=== PATIENT | male | born 1945 | race Caucasian/White ===

== ENCOUNTER 2024-07-25 06:46 | Emergency (ER) | payer OTHER ==
[~2024-07-25] VITALS: Ht 167.6 cm; Wt 45.5 kg
--- NOTE | 2024-07-25 07:06 | ED.PDOC ---
Musculoskeletal HPI Comments 79 year old male TIFFANY presents to the ED with chief complaint of left knee and hip pain s/p fall. Patient reports that this morning around 12am, he had gotten out of bed, but his right foot slipped and he fell onto his left side. Patient relays that he now has left sided knee and hip pain. EMS states patient had a previous fall involving his left side and according to , he needed to follow up with [facility] for further evaluation, but never got around to it. Patient notes he has been falling more often recently. Patient denies any LOC, head injury, N/V, numbness/tingling/weakness of extremities, or dizziness. 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, Medications, Allergies Allergies: Coded Allergies: NO KNOWN ALLERGIES (Unverified , 07/25/24) Information Source: Patient, Emergency Med Personnel Mode of Arrival: EMS Location: Left Extremity Location: Hip, Knee Timing: Hours Prehospital treatment: None Severity: Moderate Able to Move Extremity: Yes Bear Weight: Limited Pain: Moderate Mechanism: Spontaneous Circumstances: Fall Onset of Symptoms: After Trauma Symptoms: Pain DVT Risk Factors: NONE Last Tetanus: UTD Past Medical History PAST MEDICAL HISTORY: Denies Surgical History: Denies all surgeries Family History Family History: Reviewed,noncontributory to illness Social History Smoker: Non-Smoker Alcohol: Denies ETOH Use Drugs: Denies Drug Use Lives In: Home Constitutional: denies: chills, diaphoresis, fatigue, fever, malaise, sweats, weakness, others EENTM: denies: blurred vision, double vision, ear bleeding, ear discharge, ear drainage, ear pain, ear ringing, eye pain, eye redness, hearing loss, mouth pain, mouth swelling, nasal discharge, nose bleeding, nose congestion, nose pain, photophobia, tearing, throat pain, throat swelling, voice changes, others Respiratory: denies: cough, hemoptysis, orthopnea, SOB at rest, shortness of breath, SOB with excertion, stridor, wheezing, others Cardiovascular: denies: chest pain, dizzy spells, diaphoresis, Dyspnea on exertion, edema, irregular heart beat, left arm pain, lightheadedness, palpitations, PND, syncope, others Gastrointestinal: denies: abdomen distended, abdominal pain, blood streaked bowels, constipated, diarrhea, dysphagia, difficulty swallowing, hematemesis, melena, nausea, poor appetite, poor fluid intake, rectal bleeding, rectal pain, vomiting, others Genitourinary: denies: burning, dysuria, flank pain, frequency, hematuria, incontinence, penile discharge, penile sore, pain, testicle pain, testicle swelling, urgency, others Neurological: denies: dizziness, fainting, headache, left sided numbness, left sided weakness, numbness, paresthesia, pre-existing deficit, right sided numbness, right sided weakness, seizure, speech problems, tingling, tremors, weakness, others Musculoskeletal: reports: others (Left knee pain, Left hip pain); denies: back pain, gout, joint pain, joint swelling, muscle pain, muscle stiffness, neck pain Integumetry: denies: bruises, change in color, change in hair/nails, dryness, laceration, lesions, lumps, rash, wounds, others Allergic/Immunocompromised: denies: Difficulty Healing, Frequent Infections, Hives, Itching, others Hematologic/Lymphatic: denies: anemia, blood clots, easy bleeding, easy bruising, swollen glands, others Endocrine: denies: excessive hunger, excessive sweating, excessive thirst, excessive urination, flushing, intolerance to cold, intolerance to heat, unexplained weight gain, unexplained weight loss, others Psychiatric: denies: anxiety, bipolar disorder, depression, hopeless, panic disorder, schizophrenia, sleepless, suicidal, others All Other Systems: Reviewed and Negative Physical Exam General Appearance: Moderate Distress, Normal HEENT: Normal ENT Inspection, PERRL/EOMI Neck: Full Range of Motion, Non-Tender, Normal, Normal Inspection Respiratory: Chest Non-Tender, Lungs Clear, No Accessory Muscle Use, No Respiratory Distress, Normal Breath Sounds Cardiovascular: No Edema, No JVD, No Murmur, No Gallop, Normal Peripheral Pulses, Regular Rate/Rhythm Breast Exam: Deferred Gastrointestinal: No Organomegaly, Non Tender, No Pulsatile Mass, Normal Bowel Sounds, Soft Genitalia: Deferred Pelvic: Deferred Rectal: Deferred Extremities: No calf tenderness, Normal capillary refill, Normal inspection, Normal range of motion, Non-tender, No pedal edema Musculoskeletal : Apperance: Normal Neurologic: Alert, floor inspector II-XII nml as Tested, No Motor Deficits, Normal Affect, Normal Mood, No Sensory Deficits Cerebellar Function: NOT DONE Reflexes: NOT DONE Skin: Dry, Normal Color, Warm Peripheral Pulses: 3+ Radial (R), 3+ Radial (L) Lymphatic: No Adenopathy Was a procedure done? Was a procedure done?: No Differential Diagnosis EXT Differential Diagnosis: Fracture, Sprain, Dislocation, Contusion, Strain X-Ray, Labs, Meds, VS Vital Signs Date Time Temp Pulse Resp B/P (MAP) Pulse Ox O2 Delivery O2 Flow Rate FiO2 07/25/24 06:50 98.1 78 20 128/73 (91) 98 98.1 Patient alert. Complaining of left hip pain. Chronic in nature. Vitals stable. Answering questions. No head injury. Moving all extremities. Continues to smoke cigarettes. Counseled patient on effects of smoking cigarettes for 15 minutes. X-ray of the knee within normal limits. X-ray of the pelvis within normal limits. Explained to the patient about his condition after reviewing his films. Was told to follow up with his primary care physician. Was told to come back if there is any problem. Pelvis XR: FINDINGS: BONES/JOINTS: Bilateral hip replacement. Intact hardware. 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 No dislocation. No acute fracture. SOFT TISSUES: Unremarkable. OTHER FINDINGS: . IMPRESSION: No acute fracture. Left Knee XR: FINDINGS: BONES/JOINTS: Fixation sideplate and screws of the distal femur. Intact hardware. Anatomic position. No acute fracture. No dislocation. SOFT TISSUES: Unremarkable. OTHER FINDINGS: . . IMPRESSION: No acute fracture. Images Reviewed?: Images reviewed and evaluated by me Time of 1ST Reevaluation: 08:00 Reevaluation 1ST: Unchanged Patient Education/Counseling: Diagnosis, Treatment Family Education/Counseling: No Family Present Additional Information The following tests were ordered, and results were reviewed by me: Left Knee XR, Pelvis XR Additional Information was gathered from interviewing the following independent historians: EMS I reviewed and agreed with the following test results read by other providers: Left Knee XR, Pelvis XR I discussed treatment and results with medical personnel and: patient Comprehensive systems review obtained and negative except for what is stated in the HPI. Departure 1 Departure Time of Disposition: 07:10 Impression: Primary Impression: Musculoskeletal pain Disposition: 01 HOME / SELF CARE / HOMELESS Condition: Good Discharged With: Self Comments Spoke to and examined patient at 0700, discussing treatment plan at this time. Critical Care Note Critical Care Time?: No Stability Stability form required: No Heart Score Heart Score: Heart Score Response (Comments) Value History N/A 0 EKG N/A 0 Age N/A 0 Risk Factors N/A 0 Troponin N/A 0 Total 0 I personally scribed for KATHAIRNA ONTIVEROS MD ([email or web address]) on 07/25/24 at 07:06. Electronically submitted by Santy Christianson ([email or web address]). I personally scribed for KATHARINA ONTIVEROS MD ([email or web address]) on 07/25/24 at 07:53. Electronically submitted by Santy Christianson ([email or web address]). KATHARINA ONTIVEROS MD July 25, 2024 07:06
--- NOTE | 2024-07-25 07:37 | DVH ---
EXAM: XR Pelvis, 1 or 2 Views CLINICAL INDICATION: fall TECHNIQUE: Frontal view of the pelvis. COMPARISON: None FINDINGS: BONES/JOINTS: Bilateral hip replacement. Intact hardware. Moderate degenerative changes of the pu bis symphysis. No dislocation. No acute fracture. SOFT TISSUES: Unremarkable. OTHER FINDINGS: . IMPRESSION: No acute fracture.
--- NOTE | 2024-07-25 07:41 | DVH ---
EXAM: XR Left Knee, 1 or 2 Views CLINICAL INDICATION: fall TECHNIQUE: Frontal and/or lateral views of the left knee. COMPARISON: None FINDINGS: BONES/JOINTS: Fixation sideplate and screws of the distal femur. Intact hardware. Anatomic positi on. No acute fracture. No dislocation. SOFT TISSUES: Unremarkable. OTHER FINDINGS: . . IMPRESSION: No acute fracture.
[2024-07-25 10:42] VITALS: BP 119/71; PULSE 87; RESP 16; TEMP 98.6; O2SAT 95
[2024-07-25] MEDS: HYDROcodone-ACET 5/325MG TAB PO ONE (10:48)
== END 2024-07-25 11:12 | disposition home or self-care (01) ==
LOC: EDBD 06:46 → ER 06:54
DX: M79.18 Myalgia, other site (principal); M25.552 Pain in left hip; M25.562 Pain in left knee; W18.39XA Other fall on same level, initial encounter; Y93.89 Activity, other specified; Y92.89 Other specified places as the place of occurrence of the external cause; Y99.8 Other external cause status
CPT/HCPCS: 72170; 73560

== ENCOUNTER 2024-09-25 12:20 | Inpatient (IN) | payer OTHER ==
[~2024-09-25] VITALS: Ht 167.6 cm; Wt 60.2 kg
[2024-09-25] VITALS (17 sets, daily range): BP systolic 59–126; BP diastolic 23–89; PULSE 71–93; RESP 13–19; TEMP 96.4–98; O2SAT 88–100
[2024-09-25] MEDS: SODIUM CHLORIDE 0.9% 1,000 ML IV ONE ×3 (02:35→19:00)
[2024-09-25] MEDS: DEXTROSE (50%) 50ML SYRG IV ONE ×2 (12:25→12:43)
--- NOTE | 2024-09-25 12:36 | ED.PDOC ---
Altered Mental Status HPI Comments 79 y/o M, BIBA, presents to the ED for CC of ALOC. EMS reports, patient is coming from home where called d/t finding patient unresponsive today (09/25/24). Upon arrival to seen, patient was found to be in respiratory distress and unresponsive. Per , last time patient was seen normal was 0000 today (09/25/24). Upon arrival to the ED, patient was found in respiratory distress; patient was intubated with a 7.0 ETT at 23cm at the teeth. No other symptoms or modifiers are obtainable at this time; patient was moved to ER bed 05 for further care. Chief Complaint: ALOC Time Seen by MD: 12:30 Reviewed Notes: Nurses Notes, Photoengraving Proofer Apprentice Notes, Medications, Allergies Allergies: Coded Allergies: NO KNOWN ALLERGIES (Unverified , 07/25/24) Information Source: Emergency Med Personnel Mode of Arrival: EMS Severity: Moderate Timing: Hours Duration: Since onset Prehospital treatment: Intubation Recent: None History of: None Associated Signs and Symptoms: None Past Medical History PAST MEDICAL HISTORY: Denies Surgical History: Denies all surgeries Family History Family History: Reviewed,noncontributory to illness Social History Smoker: Non-Smoker Alcohol: Denies ETOH Use Drugs: Denies Drug Use Lives In: Home Unable to Obtain due to: Altered Mental Status All Other Systems: Reviewed and Negative Physical Exam General Appearance: Cachectic, Severe Distress, Thin HEENT: Pharynx Normal Neck: Normal Inspection Respiratory: Other (Patient is intubated.) Cardiovascular: No Edema, Regular Rate/Rhythm Breast Exam: Deferred Gastrointestinal: Non Tender Genitalia: Normal Pelvic: Deferred Rectal: Deferred Extremities: No pedal edema Neurologic: Other (Patient is unresponsive) Cerebellar Function: NOT DONE Reflexes: NOT DONE Skin: Other (Pale-appearing) Lymphatic: No Adenopathy Was a procedure done? 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 Indication: Hypotension, Inability to obtain IV Room prepared for procedure: Yes Drug Abuse Program Coordinator performed hand hygien: Yes Maximal sterile barrier precau: Mask/Eye shield, Sterile gown, Sterlie gloves, Large sterlie drape Skin Preparation: Chlorhexidine gluconate Insertion site: Right, Femoral Central line catheter type: Tfy-[id number] dialysis Number of lumens: 3 Central line exchanged over a: Yes Antiseptic ointment applied to: Yes Post Assessment: Proper placement Informed consent obtained: No Risks/benefits/alt described: No Differential Diagnosis (ALOC) Differential Diagnosis: Dehydration, Hypoglycemia, DKA, Sepsis, Seizure, CVA, SAH, Drug Overdose, ETOH Intoxication, Heart Failure X-Ray, Labs, Meds, VS Vital Signs Date Time Temp Pulse Resp B/P (MAP) Pulse Ox O2 Delivery O2 Flow Rate FiO2 09/25/24 16:45 95.2 82 14 93/54 (67) 97 95.2 09/25/24 16:30 94.8 79 14 95/55 (68) 96 94.8 09/25/24 16:15 94.5 77 14 98/59 (72) 97 94.5 09/25/24 16:00 94.5 72 15 102/70 (81) 100 94.5 09/25/24 15:52 71 14 102/70 (81) 100 50 09/25/24 15:43 72 59/23 95 60 09/25/24 15:30 93.9 75 13 106/71 (83) 100 93.9 09/25/24 15:00 93.6 75 14 116/73 (87) 100 93.6 09/25/24 14:00 75 11 88/55 (66) 100 09/25/24 13:50 75 17 57/23 (34) 98 60 09/25/24 13:48 74 09/25/24 13:26 76 09/25/24 13:00 09/25/24 13:00 4909/25/24 13:00 09/25/24 12:30 83 13 (22) 88 09/25/24 12:30 83 13 88 Mechanical Ventilator+ 100 100 09/25/24 12:24 77 09/25/24 12:20 99.0 76 12 (22) 88 99.0 09/25/24 12:20 83 16 53/ (34) 100 Lab Test 09/25/24 16:56 09/25/24 15:56 09/25/24 14:00 09/25/24 13:31 Range/Units Urine Color Yellow Yellow Urine Clarity Turbid H Clear Urine pH 6.0 5.0-9.0 Urine Specific [place] 1.017 1.001-1.035 Urine Protein 1+ H Negative Urine Ketones Negative Negative Urine Blood 3+ H Negative /uL Urine Nitrite Negative Negative Urine Bilirubin Negative Negative Urine Urobilinogen 3 H Negative mg/dL Urine Leukocyte Esterase 2+ Negative /uL Urine RBC 14 0 - 3 /hpf Urine Microscopic WBC 10 H 0-3 /HPF Urine Squamous Epithelial Cells Few <5 /hpf Urine Bacteria Few H None Seen /hpf Urine Mucus Few None Seen Urine Glucose Normal Normal mg/dL Lactic Acid Level 7.8 *H 0.4-2.0 mmol/L Troponin I High Sensitivity 133 *H 91 *H </=54 ng/L Blood Gas Specimen Type Arterial Blood Gas Sample Site Right brachial Blood Gas Patient Temperature 37.0 Arterial Blood Date Drawn [id number] Arterial Blood pH 7.155 *L 7.350-7.450 Arterial Blood Partial Pressure CO2 44.3 35.0-48.0 mmHg Arterial Blood Partial Pressure O2 137.6 H 83.0-108.0 mmHg Arterial Blood HCO3 15.3 L 21.0-28.0 mmol/L Arterial Blood Oxygen Saturation 98.1 H 94.0-98.0 % Arterial Blood Base Excess -12.9 L -2.0-3.0 mmol/L Arterial Blood Oxyhemoglobin 96.8 94.0-98.0 % Arterial Blood Carboxyhemoglobin 0.6 0.5-1.5 % Arterial Blood Methemoglobin 0.7 0.0-1.5 % Cole Test Modified Blood Gas Total Hemoglobin 11.10 L 13.5-17.5 g/dL Blood Gas Set Respiration Rate 14.0 Blood Gas Modality Vent - ac FiO2 % 100.0 Blood Gas Tidal Volume 400.0 Blood Gas PEEP or CPAP 5.0 Blood Gas Critical Value Read Back Yes Blood Gas Notified Whom Md. beth Blood Gas Notified Time [id number] Blood Gas Notified By Desean Smith 09/25/24 13:04 Range/Units White Blood Count 15.7 H 4.4-10.8 10^3/uL Red Blood Count 3.55 L 4.5-5.90 10^6/uL Hemoglobin 10.0 L 13.5-17.5 g/dL Hematocrit 32.4 L 41.0-53.0 % Mean Corpuscular Volume 91.3 80.0-100.0 fL Mean Corpuscular Hemoglobin 28.0 28.0-32.0 pg Mean Corpuscular Hemoglobin Concent 30.7 L 32.0-36.0 g/dL Red Cell Distribution Width 20.8 H 11.8-14.3 % Platelet Count 104 L 140-450 10^3/uL Mean Platelet Volume 9.9 6.9-10.8 fL Neutrophils (%) (Auto) 37.0-80.0 % Lymphocytes (%) (Auto) 10.0-50.0 % Monocytes (%) (Auto) 0.0-12.0 % Basophils (%) (Auto) 0.0-2.0 % Neutrophils # (Auto) 1.6-8.6 10 ^3/uL Lymphocytes # (Auto) 0.4-5.4 10 ^3/uL Monocytes # (Auto) 0-1.3 10 ^3/uL Differential Total Cells Counted 100.0 100 Neutrophils % (Manual) 75 37.0-80.0 Band Neutrophils % (Manual) 8 Lymphocytes % (Manual) 9 L 10.0-50.0 Monocytes % (Manual) 8 0-12 Eosinophils % (Manual) 0 0-7 Basophils % (Manual) 0 0.0-2.0 Metamyelocytes % (manual) 0 Myelocytes % (Manual) 0 Promyelocytes % (Manual) 0 Blast Cells % (Manual) 0 Reactive Lymphocytes 0 Platelet Estimate Decrea Large Platelets Few Poikilocytosis (manual) Slight Anisocytosis (manual) Slight Ovalocytes Few Schistocytes Few Sodium Level 138 136-145 mmol/L Potassium Level 5.4 H 3.5-5.1 mmol/L Chloride Level 99 98-107 mmol/L Carbon Dioxide Level 17 L 20-31 mmol/L Anion Gap 22 H 5-15 Blood Urea Nitrogen 38 H 9-23 mg/dL Creatinine 1.11 0.700-1.30 mg/dL Glomerular Filtration Rate Calc 68 >90 mL/min BUN/Creatinine Ratio 34.2 H 10.0-20.0 Serum Glucose 89 74-106 mg/dL Lactic Acid Level 14.0 *H 0.4-2.0 mmol/L Calcium Level 7.9 L 8.7-10.4 mg/dL Total Bilirubin 1.6 H 0.2-1.0 mg/dL Aspartate Amino Transferase (AST) 2544 H 13-40 U/L Alanine Aminotransferase (ALT) 517 H 7-40 U/L Alkaline Phosphatase 138 H 46-116 U/L Troponin I High Sensitivity 73 *H </=54 ng/L B-Type Natriuretic Peptide 199.19 0-100 pg/mL Total Protein 4.8 L 5.7-8.2 g/dL Albumin 2.5 L 3.2-4.8 g/dL Current Medications Medications (Trade) Dose Ordered Sig/Hair Route Start Time Stop Time Status Last Admin Sodium Chloride 1,000 ml @ 1,000 mls/hr Q1H ONCE IV 09/25/24 12:30 09/25/24 13:29 DC 09/25/24 12:30 Dextrose 50 ml ONCE ONCE IV 09/25/24 12:24 09/25/24 12:42 DC 09/25/24 12:25 Vancomycin HCl 200 ml @ 200 mls/hr ONCE ONCE IV 09/25/24 13:45 09/25/24 14:44 DC 09/25/24 14:36 Cefepime HCl 50 ml @ 12.5 mls/hr ONCE ONCE IV 09/25/24 13:45 09/25/24 17:44 09/25/24 16:00 Norepinephrine Bitartrate 250 ml @ 3.75 mls/hr Q24H IV 09/25/24 13:00 09/25/24 13:00 Midazolam HCl 50 ml @ 1 mls/hr Q24H IV 09/25/24 13:00 09/25/24 13:00 Fentanyl Citrate 250 ml @ 2.5 mls/hr Q24H IV 09/25/24 13:00 09/25/24 13:00 Sodium Chloride 2,000 ml @ 1,000 mls/hr Q2H ONCE IV 09/25/24 17:00 09/25/24 18:59 09/25/24 17:04 Sodium Bicarbonate 100 ml ONCE ONCE IV 09/25/24 17:00 09/25/24 17:01 DC 09/25/24 17:[address] [address] Ph: [phone] DIAGNOSTIC IMAGING Diagnostic Imaging Report : [id number] Signed PATIENT: SARAH BARAJAS ACCT: [id number] UNIT: [id number] : 1945 LOC: ER ROOM / BED: / AGE / SEX: 79 / M ADM STATUS: REG ER SERVICE 1228 ORDERING PHYSICIAN: MALACHI BETH MD PROCEDURE(s): CXRP - CHEST PORTABLE REASON: found down ORDER NUMBER(s): [id number], ACCESSION NUMBER(s): [id number] CHEST RADIOGRAPH Indication: found down Technique: Single frontal view of the chest was obtained Comparison: None FINDINGS: Lines and Tubes: Endotracheal tube terminates about 6.9 cm above the tahir. Part overlie the chest wall. Additional wires overlie the chest wall. Lungs: Hyperinflation of the lungs. Skin fold artifact over the left lateral upper to mid lung zone. There is bilateral yloq-rpmljxw-vaqa-right perihilar opacities Pleura: No effusion. No pneumothorax. Cardiomediastinal contours: Unremarkable Bones: No acute osseous abnormality. IMPRESSION: Hyperinflation of the lungs with bilateral xtik-eiiqfbo-rnte-right perihilar opacities which may represent pneumonia in the right clinical setting. Endotracheal tube terminates about 6.9 cm above the tahir. ATED BY: PAULINA SIMMONS DO DICTATED DATE/TIME: 09/25/24 131 SIGNED BY: PAULINA SIMMONS DO SIGNED DATE/TIME: 09/25/241310 CC: [place] [id number] Ph: [phone] DIAGNOSTIC IMAGING Diagnostic Imaging Report : [id number] Signed PATIENT: SARAH BARAJAS ACCT: [id number] UNIT: [id number] : 1945 LOC: ER ROOM / BED: / AGE / SEX: 79 / M ADM STATUS: REG ER SERVICE 1355 ORDERING PHYSICIAN: MALACHI BETH MD PROCEDURE(s): CXR1 - CHEST XRAY 1 VIEW REASON: CENTRAL LINE PLACEMENT AND OGT PLACEMENT ORDER NUMBER(s): [id number], ACCESSION NUMBER(s): [id number] CHEST RADIOGRAPH Indication: CENTRAL LINE PLACEMENT AND OGT PLACEMENT Technique: Single frontal view of the chest was obtained COMPARISON: XY CHEST PORTABLE on DOS: 09/25/24 FINDINGS: Lines and Tubes: Endotracheal tube and enteric catheter in satisfactory position. Lungs: Patchy bilateral airspace disease. Pleura: No effusion. No pneumothorax. Cardiomediastinal contours: Unremarkable Bones: Unremarkable IMPRESSION: Central venous catheter is not visualized. ATED BY: HARLEY CHILDRESS MD DICTATED DATE/TIME: 09/25/241416 SIGNED BY: HARLEY CHILDRESS MD SIGNED DATE/TIME: 09/25/241416 CC: [place] [id number] Ph: [phone] DIAGNOSTIC IMAGING Diagnostic Imaging Report : [id number] Signed PATIENT: SARAH BARAJAS ACCT: [id number] UNIT: [id number] : 1945 LOC: ER ROOM / BED: / AGE / SEX: 79 / M ADM STATUS: REG ER SERVICE 1228 ORDERING PHYSICIAN: MALACHI BETH MD PROCEDURE(s): HWOCT - HEAD WITHOUT CONTRAST REASON: found down ORDER NUMBER(s): [id number], ACCESSION NUMBER(s): [id number] CT HEAD WITHOUT CONTRAST Indication: found down EXAM DATE: 09/25/2024 03:38 PM COMPARISON: None TECHNIQUE: CT of the head without intravenous contrast. RADIATION DOSE: CTDIvol: 1094.72 mGy, DLP: 1093.01 mGy*cm FINDINGS: There is no intracranial hemorrhage. There is no extra-axial fluid, mass, mass effect or midline shift. The ventricles are midline and normal in size. Basilar cisterns are patent. There are moderate periventricular and subcortical white matter chronic microvascular ischemic changes. Mild global cerebral volume loss. Small right parietal scalp hematoma. The paranasal sinuses and mastoids are well-pneumatized. Imaged portion of the orbits are unremarkable. IMPRESSION: No intracranial hemorrhage or mass effect. Moderate chronic microvascular ischemic changes. Mild global cerebral volume loss. ATED BY: JOE NEWTON MD DICTATED DATE/TIME: 09/25/248 SIGNED BY: JOE NEWTON MD SIGNED DATE/TIME: 09/25/24 1628 CC: Time of 1ST Reevaluation: 13:00 Reevaluation 1ST: Unchanged Patient Education/Counseling: Diagnosis, Treatment Family Education/Counseling: No Family Present SEPSIS Sepsis Screen Physician Orders Ventilator Orders (09/25/24 12:28) Respiratory Culture W/ Gs (09/25/24 12:28) Abg W/ Co-Ox (09/25/24 13:30) Chest Portable (09/25/24 12:28) Head Without Contrast (09/25/24 12:28) Blood Culture (09/25/24 12:28) Urine Bacterial Culture (09/25/24 12:28) Insert Clark Catheter QSHIFT (09/25/24 12:28) Electrocardigram (09/25/24:) Respiratory Misc. Order (09/25/24 12:50) Cefepime 2gm/50ml Ns (Maxipime 2gm/50ml) (09/25/24 13:45) Chest Xray 1 View (09/25/24 13:55) Norepinephrine 8 Mg/250ml Kit (Levophed) (09/25/24 13:00) Midazolam Drip 50 Mg/50ml (Versed Drip 5 (09/25/24 13:00) Fentanyl Drip 2500mcg/250mlns (09/25/24 13:00) Rass Sedation Scale Q1HR (09/25/24 14:58) Sodium Chloride 0.9% (09/25/24 17:00) Vital Signs Date Time Temp Pulse Resp B/P (MAP) Pulse Ox O2 Delivery O2 Flow Rate FiO2 09/25/24 16:45 95.2 82 14 93/54 (67) 97 95.2 09/25/24 16:30 94.8 79 14 95/55 (68) 96 94.8 09/25/24 16:15 94.5 77 14 98/59 (72) 97 94.5 09/25/24 16:00 94.5 72 15 102/70 (81) 100 94.5 09/25/24 15:52 71 14 102/70 (81) 100 50 09/25/24 15:43 72 59/23 95 60 09/25/24 15:30 93.9 75 13 106/71 (83) 100 93.9 09/25/24 15:00 93.6 75 14 116/73 (87) 100 93.6 09/25/24 14:00 75 11 88/55 (66) 100 09/25/24 13:50 75 17 57/23 (34) 98 60 09/25/24 13:48 74 09/25/24 13:26 76 09/25/24 13:00 49/25 09/25/24 13:00 49/25 09/25/24 13:00 49/25 09/25/24 12:30 83 13 (22) 88 09/25/24 12:30 83 13 88 Mechanical Ventilator+ 100 100 09/25/24 12:24 77 09/25/24 12:20 99.0 76 12 (22) 88 99.0 09/25/24 12:20 83 16 53/ (34) 100 Laboratory Tests Test 09/25/24 13:04 09/25/24 15:56 Lactic Acid Level 14.0 mmol/L (0.4-2.0) *H 7.8 mmol/L (0.4-2.0) *H White Blood Count 15.7 10^3/uL (4.4-10.8) H Medications Medications Dose Ordered Sig/Hair Route Start Time Stop Time Status Last Admin Dose Admin Cefepime HCl 50 ml @ 12.5 mls/hr ONCE ONCE IV 09/25/24 13:45 09/25/24 17:44 09/25/24 16:00 Dextrose 50 ml ONCE ONCE IV 09/25/24 12:24 09/25/24 12:42 DC 09/25/24 12:25 Fentanyl Citrate 250 ml @ 2.5 mls/hr Q24H IV 09/25/24 13:00 09/25/24 13:00 Midazolam HCl 50 ml @ 1 mls/hr Q24H IV 09/25/24 13:00 09/25/24 13:00 Norepinephrine Bitartrate 250 ml @ 3.75 mls/hr Q24H IV 09/25/24 13:00 09/25/24 13:00 Sodium Bicarbonate 100 ml ONCE ONCE IV 09/25/24 17:00 09/25/24 17:01 DC 09/25/24 17:04 Sodium Chloride 1,000 ml @ 1,000 mls/hr Q1H ONCE IV 09/25/24 12:30 09/25/24 13:29 DC 09/25/24 12:30 Sodium Chloride 2,000 ml @ 1,000 mls/hr Q2H ONCE IV 09/25/24 17:00 09/25/24 18:59 09/25/24 17:04 Vancomycin HCl 200 ml @ 200 mls/hr ONCE ONCE IV 09/25/24 13:45 09/25/24 14:44 DC 09/25/24 14:36 Departure 1 Departure Time of Disposition: 15:27 ([place] authorization to admit at [facility] [id number] presented unresponsive with intubated. Patient appears emaciated. Central line was placed in the right thumb and IV fluids and antibiotics were started. Discussed with patient's family who reports patient is full code) Impression: Primary Impression: Metabolic encephalopathy Additional Impressions: Hypoglycemia Sepsis Qualified Codes: A41.9 - Sepsis, unspecified organism; R65.21 - Severe sepsis with septic shock; G72.81 - Critical illness myopathy Anorexia Disposition: ADMITTED INPATIENT Admit to: ICU Condition: Critical Critical Care Note Critical Care Time?: Yes Critical care comment: Septic shock Authorized and Performed by: Malachi Beth MD Total critical care time: Approximately 118 minutes Due to a high probability of clinically significant, life threatening deterioration, the patient required my highest level of preparedness to intervene emergently and I personally spent this critical care time directly and personally managing the patient. This critical care time included obtaining a history; examining the patient; pulse oximetry; ordering and review of studies; arranging urgent treatment with development of a management plan; evaluation of patient's response to treatment; frequent reassessment; and, discussions with other providers. This critical care time was performed to assess and manage the high probability of imminent, life-threatening deterioration that could result in multi-organ failure. It was exclusive of separately billable procedures and treating other patients and teaching time. Please see my other sections and the rest of the note for further information on patient assessment and treatment. Stability Stability form required: No Heart Score Heart Score: Heart Score Response (Comments) Value History N/A 0 EKG N/A 0 Age N/A 0 Risk Factors N/A 0 Troponin N/A 0 Total 0 I personally scribed for MALACHI BETH MD ([email or web address]) on 09/25/24 at 12:36. Electronically submitted by Samantha Klein ([email or web address]). I personally scribed for MALACHI BETH MD ([facility] on 09/25/24 at 12:52. Electronically submitted by Samantha Klein ([email or web address]). I personally scribed for MALACHI BETH MD ([facility] on 09/25/24 at 14:44. Electronically submitted by Samantha Klein ([email or web address]). I personally scribed for MALACHI BETH MD ([facility] on 09/25/24 at 14:45. Electronically submitted by Samantha Klein ([email or web address]). I personally scribed for MALACHI BETH MD ([facility] on 09/25/24 at 16:58. Electronically submitted by Samantha Klein ([email or web address]). MALACHI BETH MD Sep 25, 2024 12:36
--- NOTE | 2024-09-25 12:41 | ECG ---
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
[2024-09-25] MEDS: NOREPINEPHRINE 8 MG/250ML KIT 250 ML IV SCH (13:00)
[2024-09-25] MEDS: MIDAZOLAM DRIP 50 mg/50mL 50 ML IV SCH (13:00)
[2024-09-25] MEDS: fentaNYL Drip 2500mCg/250mlNS 250 ML IV SCH (13:00)
--- NOTE | 2024-09-25 13:13 | DVH ---
CHEST RADIOGRAPH Indication: found down Technique: Single frontal view of the chest was obtained Comparison: None FINDINGS: Lines and Tubes: Endotracheal tube terminates about 6.9 cm above the tahir. Part overlie the chest w all. Additional wires overlie the chest wall. Lungs: Hyperinflation of the lungs. Skin fold artifact over the left lateral upper to mid lung zone. There is bilateral cxxq-vxurvnu-axbk-right perihilar opacities Pleura: No effusion. No pneumothorax. Cardiomediastinal contours: Unremarkable Bones: No acute osseous abnormality. IMPRESSION: Hyperinflation of the lungs with bilateral fzpm-ywckxwx-yved-right perihilar opacities which may repr esent pneumonia in the right clinical setting. Endotracheal tube terminates about 6.9 cm above the tahir.
[2024-09-25 13:27] LABS: Hemoglobin 10.0 g/dL (13.5-17.5)
[2024-09-25 13:30] LABS: Hematocrit 32.4 % (41.0-53.0); Mean Corpuscular Hemoglobin 28.0 pg (28.0-32.0); Mean Corpuscular Volume 91.3 fL (80.0-100.0)
[2024-09-25 13:35] LABS: Anion Gap 22 (5-15); BUN/Creatinine Ratio 34.2 (10.0-20.0); Chloride 99 mmol/L (98-107); Glucose 89 mg/dL (74-106); Sodium 138 mmol/L (136-145)
[2024-09-25 13:36] LABS: Alanine Aminotransferase 517 U/L (7-40); Albumin 2.5 g/dL (3.2-4.8); Alkaline Phosphatase 138 U/L (46-116); Bilirubin, Total 1.6 mg/dL (0.2-1.0); Blood Urea Nitrogen 38 mg/dL (9-23); Calcium 7.9 mg/dL (8.7-10.4); Carbon Dioxide 17 mmol/L (20-31); Potassium 5.4 mmol/L (3.5-5.1); Total Protein 4.8 g/dL (5.7-8.2)
[2024-09-25 13:39] LABS: Lactic Acid w/Reflex 14.0 mmol/L (0.4-2.0)
[2024-09-25 13:47] LABS: Base Excess -12.9 mmol/L (-2.0-3.0)
--- NOTE | 2024-09-25 14:20 | DVH ---
CHEST RADIOGRAPH Indication: CENTRAL LINE PLACEMENT AND OGT PLACEMENT Technique: Single frontal view of the chest was obtained COMPARISON: XY CHEST PORTABLE on DOS: 09/25/24 FINDINGS: Lines and Tubes: Endotracheal tube and enteric catheter in satisfactory position. Lungs: Patchy bilateral airspace disease. Pleura: No effusion. No pneumothorax. Cardiomediastinal contours: Unremarkable Bones: Unremarkable IMPRESSION: Central venous catheter is not visualized.
[2024-09-25 14:30] LABS: Total Cells Counted 100.0 (100)
[2024-09-25 14:31] LABS: Anisocytosis Slight; Ovalocytes FEW
[2024-09-25] MEDS: VANCOMYCIN 1GM/200ML PM 200 ML IV ONE (14:36)
[2024-09-25] MEDS: fentaNYL Drip 2500mCg/250mlNS 250 ML IV ONE (15:00)
[2024-09-25] MEDS: MIDAZOLAM DRIP 50 mg/50mL 50 ML IV ONE (15:00)
[2024-09-25] MEDS: NOREPINEPHRINE 8 MG/250ML KIT 250 ML IV ONE (15:00)
[2024-09-25] MEDS: CEFEPIME 2GM/50ML NS 50 ML IV ONE (16:00)
--- NOTE | 2024-09-25 16:29 | DVH ---
CT HEAD WITHOUT CONTRAST Indication: found down EXAM DATE: 09/25/2024 03:38 PM COMPARISON: None TECHNIQUE: CT of the head without intravenous contrast. RADIATION DOSE: CTDIvol: 1094.72 mGy, DLP: 1093.01 mGy*cm FINDINGS: There is no intracranial hemorrhage. There is no extra-axial fluid, mass, mass effect or midline shif t. The ventricles are midline and normal in size. Basilar cisterns are patent. There are moderate per iventricular and subcortical white matter chronic microvascular ischemic changes. Mild global cerebr al volume loss. Small right parietal scalp hematoma. The paranasal sinuses and mastoids are well-pneumatized. Imaged portion of the orbits are unremarkabl e. IMPRESSION: No intracranial hemorrhage or mass effect. Moderate chronic microvascular ischemic changes. Mild global cerebral volume loss.
[2024-09-25] MEDS: SODIUM CHLORIDE 0.9% 2,000 ML IV ONE (17:04)
[2024-09-25] MEDS: SODIUM BICARB 8.4% 50Meq/50ml SYR Vial IV ONE ×2 (17:04)
[2024-09-25 17:07] LABS: Urine Protein, UAD 1+ (Negative)
--- NOTE | 2024-09-25 17:42 | ECG ---
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
[2024-09-25] MEDS: VASOPRESSIN 20 UNITS in SODIUM CHL 0.9% 99 ML IV SCH (19:00)
[2024-09-25] MEDS: VASOPRESSIN 20 UNIT/ML ONE (19:32)
[2024-09-25] MEDS ORDERED: NITROGLYCERIN 0.4 MG SL TAB SL PRN (19:45)
[2024-09-25] MEDS ORDERED: MORPHINE SULFATE INJ 2 MG/ml SYRG IV PRN (19:45)
[2024-09-25] MEDS ORDERED: ACETAMINOPHEN 325 MG TAB PO PRN (19:45)
[2024-09-25] MEDS ORDERED: VANCOMYCIN PER PHARMACY 0 MG IV SCH (19:45)
[2024-09-25] MEDS ORDERED: ONDANSETRON HCL 4 MG/2 ML VIAL IV PRN (19:45)
[2024-09-25 20:08] LABS: Base Excess -6.7 mmol/L (-2.0-3.0)
[2024-09-25 23:11] LABS: Anion Gap 12 (5-15); BUN/Creatinine Ratio 31.1 (10.0-20.0); Carbon Dioxide 23 mmol/L (20-31); Potassium 4.5 mmol/L (3.5-5.1); Sodium 143 mmol/L (136-145)
[2024-09-25] MEDS: PIPERACILLIN-TAZOB 3.375GM 100 ML IV SCH (23:11)
[2024-09-25 23:23] LABS: Alanine Aminotransferase 1500 U/L (7-40); Albumin 2.4 g/dL (3.2-4.8); Alkaline Phosphatase 204 U/L (46-116); Bilirubin, Total 1.9 mg/dL (0.2-1.0); Blood Urea Nitrogen 38 mg/dL (9-23); Calcium 6.7 mg/dL (8.7-10.4); Chloride 108 mmol/L (98-107); Creatine Kinase IFCC 226 U/L (46-171); Glucose 110 mg/dL (74-106); Total Protein 4.6 g/dL (5.7-8.2)
[2024-09-25 23:49] LABS: Base Excess -5.9 mmol/L (-2.0-3.0)
[2024-09-26] VITALS (119 sets, daily range): BP systolic 61–130; BP diastolic 36–85; PULSE 67–104; RESP 17–22; TEMP 94.6–101.5; O2SAT 89–100
[2024-09-26 04:03] LABS: Hematocrit 33.7 % (41.0-53.0); Hemoglobin 11.0 g/dL (13.5-17.5); Mean Corpuscular Hemoglobin 28.6 pg (28.0-32.0); Mean Corpuscular Volume 87.8 fL (80.0-100.0)
[2024-09-26 04:42] LABS: Albumin 2.2 g/dL (3.2-4.8); Alkaline Phosphatase 212 U/L (46-116); Anion Gap 13 (5-15); BUN/Creatinine Ratio 30.1 (10.0-20.0); Blood Urea Nitrogen 40 mg/dL (9-23); Calcium 6.3 mg/dL (8.7-10.4); Carbon Dioxide 22 mmol/L (20-31); Chloride 108 mmol/L (98-107); Glucose 106 mg/dL (74-106); Potassium 4.8 mmol/L (3.5-5.1); Sodium 143 mmol/L (136-145); Total Protein 4.4 g/dL (5.7-8.2)
[2024-09-26 04:43] LABS: Bilirubin, Total 1.9 mg/dL (0.2-1.0)
--- NOTE | 2024-09-26 04:47 | DVHHP2 ---
History of Present Illness Reason for Visit: Altered mental status History of Present Illness 79-year-old male presents for evaluation of altered mental status. Patient was brought in for evaluation of decreased alertness. On arrival to the emergency department patient was found to be in respiratory distress and unresponsive therefore was emergently intubated for airway protection. No family at the bedside to provide further history. Past Medical History Unknown Past Surgical History Unknown Family History Unknown Review of Systems Review of Systems Unable to complete review of systems, patient is sedated and intubated. Allergies: Coded Allergies: NO KNOWN ALLERGIES (Unverified , 07/25/24) Medications Current Medications Medications Dose Ordered Sig/Hair Route Start Time Stop Time Status Last Admin Dose Admin Norepinephrine Bitartrate 250 ml @ 3.75 mls/hr Q24H IV 09/25/24 13:00 09/26/24 03:40 52.5 MLS/HR Midazolam HCl 50 ml @ 1 mls/hr Q24H IV 09/25/24 13:00 09/25/24 22:53 2 MLS/HR Fentanyl Citrate 250 ml @ 2.5 mls/hr Q24H IV 09/25/24 13:00 09/25/24 13:00 2.5 MLS/HR Vasopressin 20 units/Sodium Chloride 100 ml @ 9 mls/hr Q11H7M IV 09/25/24 19:00 09/26/24 02:30 9 MLS/HR Piperacillin Sod/ Tazobactam Sod 100 ml @ 25 mls/hr Q8HR IV 09/25/24 22:00 09/25/24 23:11 25 MLS/HR Vancomycin HCl 0 ml @ 0 mls/hr UD IV 09/25/24 19:45 Ondansetron HCl 4 mg Q4HP PRN IV 09/25/24 19:45 Enoxaparin Sodium 40 mg DAILY SC 09/26/24 10:00 Acetaminophen 650 mg Q6HP PRN PO 09/25/24 19:45 Nitroglycerin 0.4 mg Q5MINP PRN SL 09/25/24 19:45 Morphine Sulfate 2 mg Q30M PRN IV 09/25/24 19:45 Exam Vital Signs Vital Signs Date Time Temp Pulse Resp B/P (MAP) Pulse Ox O2 Delivery O2 Flow Rate FiO2 09/26/24 04:30 101.3 89 22 110/66 (81) 98 214.3 09/26/24 04:23 60 09/26/24 00:46 Mechanical Ventilator+ Exam Gen: 79-year-old male in moderate distress Skin: Warm, dry, normal color and texture, no rash. HEENT: Normocephalic atraumatic, mucous membranes moist and pink. Neck: Cervical and supraclavicular nodes normal without enlargement, trachea is midline, thyroid gland is normal without masses. Pulmonary: Intubated, diminished breath sounds bilaterally Cardiac: Regular rate and rhythm. No murmur Abdomen: Soft, nontender, nondistended, bowel sounds present all 4 quadrants, no guarding, no rigidity, no organomegaly. Extremities: No cyanosis, clubbing, no edema Neuro: Sedated Labs/Xrays ORDERING PHYSICIAN: MALACHI TURNER MD PROCEDURE(s): CXR1 - CHEST XRAY 1 VIEW REASON: CENTRAL LINE PLACEMENT AND OGT PLACEMENT ORDER NUMBER(s): [id number], ACCESSION NUMBER(s): [id number] CHEST RADIOGRAPH Indication: CENTRAL LINE PLACEMENT AND OGT PLACEMENT Technique: Single frontal view of the chest was obtained COMPARISON: XY CHEST PORTABLE on DOS: 09/25/24 FINDINGS: Lines and Tubes: Endotracheal tube and enteric catheter in satisfactory position. Lungs: Patchy bilateral airspace disease. Pleura: No effusion. No pneumothorax. Cardiomediastinal contours: Unremarkable Bones: Unremarkable IMPRESSION: Central venous catheter is not visualized. RING PHYSICIAN: MALACHI TURNER MD PROCEDURE(s): HWOCT - HEAD WITHOUT CONTRAST REASON: found down ORDER NUMBER(s): [id number], ACCESSION NUMBER(s): [id number] CT HEAD WITHOUT CONTRAST Indication: found down EXAM DATE: 09/25/2024 03:38 PM COMPARISON: None TECHNIQUE: CT of the head without intravenous contrast. RADIATION DOSE: CTDIvol: 1094.72 mGy, DLP: 1093.01 mGy*cm FINDINGS: There is no intracranial hemorrhage. There is no extra-axial fluid, mass, mass effect or midline shift. The ventricles are midline and normal in size. Basilar cisterns are patent. There are moderate periventricular and subcortical white matter chronic microvascular ischemic changes. Mild global cerebral volume loss. Small right parietal scalp hematoma. The paranasal sinuses and mastoids are well-pneumatized. Imaged portion of the orbits are unremarkable. IMPRESSION: No intracranial hemorrhage or mass effect. Moderate chronic microvascular ischemic changes. Mild global cerebral volume loss. Labs Test 09/26/24 03:38 09/25/24 22:42 09/25/24 22:30 09/25/24 19:45 Range/Units White Blood Count 21.4 #H 4.4-10.8 10^3/uL Red Blood Count 3.84 L 4.5-5.90 10^6/uL Hemoglobin 11.0 L 13.5-17.5 g/dL Hematocrit 33.7 L 41.0-53.0 % Mean Corpuscular Volume 87.8 80.0-100.0 fL Mean Corpuscular Hemoglobin 28.6 28.0-32.0 pg Mean Corpuscular Hemoglobin Concent 32.6 32.0-36.0 g/dL Red Cell Distribution Width 21.0 H 11.8-14.3 % Platelet Count 107 L 140-450 10^3/uL Mean Platelet Volume 10.8 6.9-10.8 fL Neutrophils (%) (Auto) 37.0-80.0 % Lymphocytes (%) (Auto) 10.0-50.0 % Monocytes (%) (Auto) 0.0-12.0 % Basophils (%) (Auto) 0.0-2.0 % Neutrophils # (Auto) 1.6-8.6 10 ^3/uL Lymphocytes # (Auto) 0.4-5.4 10 ^3/uL Monocytes # (Auto) 0-1.3 10 ^3/uL Sodium Level 143 136-145 mmol/L Potassium Level 4.8 3.5-5.1 mmol/L Chloride Level 108 H 98-107 mmol/L Carbon Dioxide Level 22 20-31 mmol/L Anion Gap 13 5-15 Blood Urea Nitrogen 40 H 9-23 mg/dL Creatinine 1.33 H 0.700-1.30 mg/dL Glomerular Filtration Rate Calc 55 >90 mL/min BUN/Creatinine Ratio 30.1 H 10.0-20.0 Serum Glucose 106 74-106 mg/dL Calcium Level 6.3 L 8.7-10.4 mg/dL Total Bilirubin 1.9 H 0.2-1.0 mg/dL Aspartate Amino Transferase (AST) 13-40 U/L Alkaline Phosphatase 212 H 46-116 U/L Total Protein 4.4 L 5.7-8.2 g/dL Albumin 2.2 L 3.2-4.8 g/dL Random Vancomycin Level 13.0 H 5-10 ug/mL Blood Gas Specimen Type Arterial Blood Gas Sample Site Right radial Blood Gas Patient Temperature 37.0 Arterial Blood Date Drawn [id number] Arterial Blood pH 7.274 L 7.350-7.450 Arterial Blood Partial Pressure CO2 46.1 35.0-48.0 mmHg Arterial Blood Partial Pressure O2 78.2 L 83.0-108.0 mmHg Arterial Blood HCO3 20.9 L 21.0-28.0 mmol/L Arterial Blood Oxygen Saturation 94.2 94.0-98.0 % Arterial Blood Base Excess -5.9 L -2.0-3.0 mmol/L Arterial Blood Oxyhemoglobin 93.2 L 94.0-98.0 % Arterial Blood Carboxyhemoglobin 0.8 0.5-1.5 % Arterial Blood Methemoglobin 0.3 0.0-1.5 % Cole Test N/a Blood Gas Total Hemoglobin 12.00 L 13.5-17.5 g/dL Blood Gas Set Respiration Rate 18.0 Blood Gas Modality Vent - ac FiO2 % 60.0 Blood Gas Tidal Volume 450.0 Blood Gas PEEP or CPAP 5.0 Blood Gas Notified By Grass Cutter shreya naomi Creatine Kinase 226 H 46-171 U/L Blood Gas Comments 1st paged 1999 Blood Gas Critical Value Read Back Yes Blood Gas Notified Whom cirilo Caballero Blood Gas Notified Time [id number] Test 09/25/24 18:38 09/25/24 16:56 09/25/24 15:56 09/25/24 13:04 Range/Units POC Glucose 101 70-106 mg/dl Urine Color Yellow Yellow Urine Clarity Turbid H Clear Urine pH 6.0 5.0-9.0 Urine Specific Linn 1.017 1.001-1.035 Urine Protein 1+ H Negative Urine Ketones Negative Negative Urine Blood 3+ H Negative /uL Urine Nitrite Negative Negative Urine Bilirubin Negative Negative Urine Urobilinogen 3 H Negative mg/dL Urine Leukocyte Esterase 2+ Negative /uL Urine RBC 14 0 - 3 /hpf Urine Microscopic WBC 10 H 0-3 /HPF Urine Squamous Epithelial Cells Few <5 /hpf Urine Bacteria Few H None Seen /hpf Urine Mucus Few None Seen Urine Glucose Normal Normal mg/dL Lactic Acid Level 7.8 *H 0.4-2.0 mmol/L Troponin I High Sensitivity 133 *H </=54 ng/L Large Platelets Few Poikilocytosis (manual) Slight Anisocytosis (manual) Slight Ovalocytes Few Schistocytes Few B-Type Natriuretic Peptide 199.19 0-100 pg/mL Microbiology Date/Time Source Procedure Growth Status 09/25/24 14:00 Blood Blood Culture - Preliminary Resulted SEPSIS Sepsis Screen Date sepsis recognized/suspect: Sep 25, 2024 Time Sepsis recognized/suspect: 1914 Recent Procedure: No On Antibiotic Therapy: No Respiratory Rate >20: No Heart Rate >90: No Temp<36 C (96.8 F) or >38.3 C: No SBP <90 or MAP <65 mmHG: Yes New Acute Mental Status Change: Yes Is the patient on CPAP, BIPAP,: Yes Physician Orders Ventilator Orders (09/25/24 21:27) Abg W/ Co-Ox (09/25/24 22:30) Vancomycin Per Pharmacy Protoc (09/25/24 21:34) Manual Differential (09/26/24 03:38) Vital Signs Date Time Temp Pulse Resp B/P (MAP) Pulse Ox O2 Delivery O2 Flow Rate FiO2 09/26/24 04:30 101.3 89 22 110/66 (81) 98 214.3 09/26/24 04:23 91 18 105/64 (78) 99 60 09/26/24 04:15 101.5 92 18 105/65 (78) 99 214.7 09/26/24 04:00 101.5 93 17 105/64 (78) 100 214.7 09/26/24 03:45 101.5 94 18 99/61 (74) 100 214.7 09/26/24 03:40 109/65 09/26/24 03:30 101.5 95 18 109/65 (80) 98 214.7 09/26/24 03:15 101.3 95 18 110/65 (80) 100 214.3 09/26/24 03:00 101.1 94 18 111/66 (81) 99 214.0 09/26/24 02:45 100.8 91 18 106/63 (77) 100 213.4 09/26/24 02:30 111/66 09/26/24 02:30 100.2 90 18 111/66 (81) 100 212.4 09/26/24 02:15 99.9 88 18 114/64 (81) 99 211.8 09/26/24 02:14 87 18 112/70 (84) 100 60 09/26/24 02:00 99.7 87 18 112/67 (82) 98 211.5 09/26/24 01:45 99.1 82 18 126/80 (95) 99 210.4 09/26/24 01:30 99.0 82 18 114/68 (83) 98 210.2 09/26/24 01:15 98.6 80 18 110/66 (81) 98 209.5 09/26/24 01:00 98.4 80 20 113/70 (84) 98 209.1 09/26/24 00:46 18 97 Mechanical Ventilator+ 60 60 09/26/24 00:45 98.1 82 20 110/70 (83) 98 208.6 09/26/24 00:30 97.9 81 20 113/70 (84) 99 208.2 09/26/24 00:24 80 18 110/70 (83) 99 60 09/26/24 00:15 97.3 79 18 110/70 (83) 98 207.1 09/26/24 00:00 60 09/26/24 00:00 73 09/26/24 00:00 97.2 80 19 114/69 (84) 207.0 09/25/24 23:45 96.8 80 19 115/72 (86) 98 206.2 09/25/24 23:30 96.6 73 18 116/76 (89) 205.9 09/25/24 23:15 96.4 75 18 122/82 (95) 100 205.5 09/25/24 23:00 96.4 74 18 118/79 (92) 100 205.5 09/25/24 22:53 111/78 09/25/24 22:48 77 18 97/66 (76) 99 60 09/25/24 22:46 98.0 74 18 102/57 (72) 100 98.0 7/15/25 22:46 18 100 Mechanical Ventilator+ 60 60 09/25/24 22:46 74 18 100 Mechanical Ventilator+ 60 60 09/25/24 22:45 96.6 75 18 84/51 (62) 205.9 09/25/24 22:43 97/66 09/25/24 22:30 96.8 74 18 97/66 (76) 206.2 09/25/24 22:15 97.2 79 18 99/67 (78) 207.0 09/25/24 22:00 126/89 09/25/24 22:00 97.5 79 18 126/89 (101) 99 207.5 09/25/24 21:45 97.5 75 17 99 207.5 09/25/24 21:00 86/55 09/25/24 21:00 86/55 09/25/24 21:00 86/55 09/25/24 21:00 86/55 09/25/24 21:00 98.8 85 14 86/55 (65) 94 98.8 09/25/24 20:45 98.8 88 14 100/62 (75) 100 98.8 Laboratory Tests Test 09/26/24 03:38 White Blood Count 21.4 10^3/uL (4.4-10.8) #H Medications Medications Dose Ordered Sig/Hair Route Start Time Stop Time Status Last Admin Dose Admin Piperacillin Sod/ Tazobactam Sod 100 ml @ 25 mls/hr Q8HR IV 09/25/24 22:00 09/25/24 23:11 25 MLS/HR Sodium Bicarbonate 100 ml ONCE ONCE IV 09/25/24 17:00 09/25/24 17:01 DC 09/25/24 17:04 100 ML Sodium Chloride 1,000 ml @ 100 mls/hr Q10H ONCE IV 09/25/24 19:45 09/26/24 05:44 09/25/24 02:35 100 MLS/HR Sodium Chloride 1,000 ml @ 130 mls/hr Q7H42M ONCE IV 09/25/24 19:00 09/26/24 02:41 DC 09/25/24 19:00 130 MLS/HR Sodium Chloride 2,000 ml @ 1,000 mls/hr Q2H ONCE IV 09/25/24 17:00 09/25/24 18:59 DC 09/25/24 17:04 1,000 MLS/HR Vasopressin 20 units/Sodium Chloride 100 ml @ 9 mls/hr Q11H7M IV 09/25/24 19:00 09/26/24 02:30 9 MLS/HR Assessment/Plan Assessment/Plan Assessment Metabolic encephalopathy Possible septic shock UTI Multi organ failure Cachectic Plan Admit the patient to ICU to the hospitalist Vancomycin/Zosyn Blood cultures pending CT abdomen pelvis pending Maintenance IV fluids Continue treatment per orders. Total critical care time excluding procedures performed this 55 minutes. Plan discussed with: Patient My Orders Orders - RUCHI NORTH AGACNP Procedure Category Date Status Time Abg W/ Co-Ox RT 09/25/24 Logged 19:34 Piperacillin-Tazob PHA 09/25/24 In Process 3.375gm (Zosyn 3.375g 22:00 Vancomycin Per PHA 09/25/24 In Process Pharmacy 19:45 Admit ADMIT 09/25/24 Transmitted 19:34 Ondansetron Hcl PHA 09/25/24 In Process (Zofran) 19:45 Complete Blood Count LAB 09/26/24 In Process 04:00 Comprehensive LAB 09/26/24 In Process Metabolic Panel 04:00 Echo 2d Mode Cardiac US 09/25/24 Logged DOP 19:34 Condition: Unstable MARY ANN 09/25/24 In Process 19:34 Acetaminophen Tablet PHA 09/25/24 In Process (Tylenol Tablet) 19:45 Maintain Bed Rest MARY ANN 09/25/24 In Process 19:34 Sequential MARY ANN 09/25/24 In Process Compression Device Nitroglycerin PHA 09/25/24 In Process Sublingual (Ntrostat 19:45 Morphine Sulfate PHA 09/25/24 In Process Injection 19:45 Stat Ekg For Chest MARY ANN 09/25/24 In Process Pain 19:34 Notify Md Of Changes MARY ANN 09/25/24 In Process From Base 19:34 Fuel Conversion Technician For MARY ANN 09/25/24 In Process 24 Hours 19:34 Emergency Dysrhythmia MARY ANN 09/25/24 In Process Protocol 19:34 Rhythm Strips Once MARY ANN 09/25/24 In Process Every Shift 19:34 Oxygen By Nasal RT 09/25/24 Transmitted Cannula 19:34 Sodium Chloride 0.9% PHA 09/25/24 In Process 19:45 Enoxaparin Sodium PHA 09/26/24 In Process (Lovenox) 10:00 Ventilator Orders RT 09/25/24 Transmitted 21:27 Abg W/ Co-Ox RT 09/25/24 Logged 22:30 Vancomycin Per MARY ANN 09/25/24 In Process Pharmacy Protoc 21:34 Manual Differential LAB 09/26/24 In Process 03:38 Date of Service: Sep 26, 2024 Billing Provider: RUCHI NORTH Common Visit Codes: [id number] CARE 30-74 MIN RUCHI NORTH Sep 26, 2024 04:47
[2024-09-26 04:53] LABS: Total Cells Counted 100.0 (100)
[2024-09-26 04:54] LABS: Anisocytosis Slight; Ovalocytes MODERATE
[2024-09-26 05:02] LABS: Alanine Aminotransferase 1460 U/L (7-40)
[2024-09-26] MEDS: SODIUM CHLORIDE 0.9% 1,000 ML IV ONE (05:11)
[2024-09-26 07:07] LABS: Base Excess -9.1 mmol/L (-2.0-3.0)
[2024-09-26] MEDS ORDERED: ENOXAPARIN SOD 40 MG/0.4 ML SYRINGE SC SCH (10:00)
[2024-09-26] MEDS: ENOXAPARIN SOD 30 MG/0.3 ML SYRINGE SC SCH (10:00)
--- NOTE | 2024-09-26 10:12 | DVHPNRES ---
Progress Note Date Seen: Sep 26, 2024 Resident Creating Document: RUCHI LECHUGA MD Has the PT tested + for MRSA If YES, has PT been informed?: No Medical Necessity Reason Pt with a Central, PICC or Fol: Yes Subjective Review of Systems 79-year-old cachectic male with PMHx of left hip fracture s/p hip replacement and functional decline, found unresponsive at home by on 09/25/24. Last known normal was reportedly 0000 the same day. On EMS arrival, he was in severe respiratory distress and required intubation en route with a 7.0 ETT. Upon ED arrival, he was unresponsive and hypotensive; he was started on vasopressors and IV fluids. Initial labs were notable for profound metabolic acidosis, elevated transaminases, acute kidney injury, elevated lactate (7.8), and leukocytosis with bandemia. UA suggestive of UTI. Family reports chronic anorexia and likely Kenner overuse for chronic left hip pain. No known drug allergies. Currently requiring multiple vasopressors and mechanical ventilation in ICU. Past Medical History: Left femur fracture s/p hip replacement Bedbound for several months Possible COPD or respiratory disease (family unsure) Possible history of DM Kenner abuse for chronic pain Surgical History: Left hip replacement Medications: Kenner (home use per family) Prednisone (prior use per family, unclear duration/dose) Allergies: No known drug allergies Social History: Last alcohol intake Apr 2021, active smoker Lives at home with Denies illicit drug use (per Kenner overuse) Labs: CBC: WBC 21.4 (bands 25%), Hgb 11, Plt 107 CMP: Cr 1.3 (baseline unknown), BUN 38, Na 143, K 4.3, HCO3 13, AST >5000, ALT ~1500, Tbili 6.7 ABG (most recent): pH 7.204 / pCo2 48.3 / HCO3 18.6 / FiO? 60% / Tidal volume 450 / RR 18 UA: 2+ leuk esterase, bacteria few, WBC 10, RBC 14, protein 1+ Lactate: 7.8 Trop I: 133 (elevated, likely demand ischemia) Albumin: 2.2 Objective vital signs Vital Sign Date Time Temp Pulse Resp B/P (MAP) Pulse Ox O2 Delivery O2 Flow Rate FiO2 09/26/24 09:01 122/80 09/26/24 08:50 67 18 100 60 09/26/24 07:15 98.2 208.8 09/26/24 06:46 Mechanical Ventilator+ Total Intake and Output 09/25/24 09/25/24 09/26/24 15:00 23:00 07:00 Intake Total 1000 ml 3009.00 ml 828.0 ml Output Total 35 ml Balance 1000 ml 3009.00 ml 793.0 ml medications Current Medications Medications Dose Ordered Sig/Hair Route Start Time Stop Time Status Last Admin Dose Admin Norepinephrine Bitartrate 250 ml @ 3.75 mls/hr Q24H IV 09/25/24 13:00 09/26/24 09:01 52.5 MLS/HR Midazolam HCl 50 ml @ 1 mls/hr Q24H IV 09/25/24 13:00 09/25/24 22:53 2 MLS/HR Fentanyl Citrate 250 ml @ 2.5 mls/hr Q24H IV 09/25/24 13:00 09/25/24 13:00 2.5 MLS/HR Vasopressin 20 units/Sodium Chloride 100 ml @ 9 mls/hr Q11H7M IV 09/25/24 19:00 09/26/24 02:30 9 MLS/HR Vancomycin HCl 0 ml @ 0 mls/hr UD IV 09/25/24 19:45 Meropenem 50 ml @ 17 mls/hr Q12HR IV 09/26/24 22:00 Enoxaparin Sodium 30 mg DAILY SC 09/26/24 10:00 Examination Physical Exam General: Cachectic, severely distressed, intubated HEENT: Normal Neck: No JVD CV: Regular rate/rhythm, no murmurs Resp: Intubated, bilateral breath sounds Abdomen: Soft, non-tender, thrill in abdomen, AAA 5.6cm Extremities: No edema, no DVT signs Neuro: GCS not assessable due to sedation; no focal findings Skin: Pale, multiple pressure ulcers in the back, multiple ecchymosis Lines/Devices: Intubated with 7.0 ETT at 23 cm Central line: Right femoral triple lumen Clark catheter in place laboratory and microbiology Laboratory Tests 09/26/24 03:38 Test 09/26/24 03:38 Range/Units Serum Glucose 106 74-106 mg/dL Microbiology Date/Time Source Procedure Growth Status 09/25/24 14:00 Blood Blood Culture - Preliminary Resulted Problem List/Assessment/Plan Problem List/Assessment/Plan Neurology #Acute Toxic/Metabolic Encephalopathy: Likely multifactorial (shock liver, SANJAY, sepsis, tylenol overdose) #Moderate chronic microvascular ischemic changes. #Mild global cerebral volume loss fentanyl and midazolam RASS-3 Cardiology #Multiorgan failure #Septic shock due to bacteremia, UTI, possible pneumonia, multiple pressure wounds, liver failure #NSTEMI type 2 likely due to demand ischemia started on IV fluids bicarb drip, norepinephrine, vasopressin and epinephrine hydrocortisone IV Blood cultures pending: prelim gram+ and gram- growth pending echo ekg showed multiple PAC, MI prolongation Respiratory #Acute respiratory failure due to septic shock, COPD exacerbation and pneumonia #Respiratory acidosis resolving #Pneumonia gram+/ gram - #COPD exacerbation #Bilateral pleural effusions Intubated for respiratory distress; AC/VC mode. meropenem + vancomycin pending cultures Fio2 req high increase RR 22 high risk of bleeding, no thoracentesis GI #Acute liver failure due to Tylenol toxicity #Shock liver #Severe malnutrition and cachexia #distal AAA #Possible GI bleeding #Severe coagulopathy Started on acetylcysteine protocol Vitamin K GI consult NPO for now hb stable Metabolic #Hypoglycemia at admission #Severe lactic acidosis #Severe metabolic acidosis #Possible hypothyroidism #Hypocalcemia bicarb drip 3 amp + d5w 125cc/h due to high risk of arrhythmia: no T4 supplementation for now . TSH 7 corrected calcium 7,7 (6.3) Renal #SANJAY probably due to VMN, worsening due to multiorgan failure #Complicated UTI #Hematuria due to coagulopathy in UA oliguria almost anuria bicarb drip meropenem + vanc Heme/onc #Leukocytosis with bands #Anemia due to possible chronic disease #Thrombocytopenia #Severe coagulopathy hb stable, but there is a concern of GI bleeding due to dark NG tube output MSK #Multiple wounds/decub ulcers and ecchymosis Patient is on a severe coagulopathic state and severe denutrition: poor prognosis, wound consult: supportive care consult SS ID #Bacteriemia #Pneumonia #UTI meropenem and vancomycin Case discussed with Dr Lechuga Time spent of critical care 114 min, excluding procedures, case extensively discussed with the Micehlle and son Dinesh, family doesn't want compressions in case of cardiac arrest, but they agree on defibrillation, ACLS medications and mechanical ventilation, overall very poor prognosis, patient is having multiorgan failure with severe coagulopathy. Plan discussed with: Spouse, Son My Orders My Orders Orders - IRIS QUIJANO RESIDENT Procedure Category Date Status Time Meropenem 1gm Ivpb PHA 09/26/24 In Process (Merrem 1gm/ Ns) 09:45 Meropenem 1gm Ivpb PHA 09/26/24 In Process (Merrem 1gm/ Ns) 22:00 Acetaminophen LAB 09/26/24 Logged 09:47 Acute Hepatitis Panel LAB 09/26/24 Logged 09:51 Gamma Glutamyl LAB 09/26/24 Logged Transpeptidase 09:54 Abdomen Complete US 09/26/24 Logged Sonogram 09:54 Date of Service: Sep 26, 2024 Billing Provider: RUCHI LECHUGA MD Common Visit Codes: [id number] CARE 30-74 MIN, [id number] CARE-EACH +30MIN (x2) IRIS QUIJANO RESIDENT Sep 26, 2024 10:12 RUCHI LECHUGA MD Sep 27, 2024 11:40
[2024-09-26] MEDS: VANCOMYCIN 500mg/100mL 100 ML IV ONE (10:59)
[2024-09-26] MEDS: PANTOPRAZOLE 40 MG/10 ML VIAL INJ IV SCH (11:13)
[2024-09-26] MEDS: MEROPENEM 1GM IVPB 50 ML IV ONE (11:41)
--- NOTE | 2024-09-26 12:21 | DVH ---
INDICATION: acute hepatitis TECHNIQUE: Multiple real-time sonographic images of the abdomen were obtained. COMPARISON: None FINDINGS: Bilateral pleural effusions. Liver is homogenous in echogenicity. The liver measures 14 cm. No intrahepatic biliary ductal dilatation is noted. The gallbladder wall measures 0.5 cm and is edematous. Gallbladder sludge is present. No pericholec ystic fluid or edema. The common duct is not visualized. The right kidney measures 8.9 cm. No hydronephrosis. The left kidney measures 8.3 cm. No hydronephros is. The spleen measures 7.1 cm, within normal limits. The echogenicity is within normal limits. Atherosclerotic calcifications are present within the aorta. Abdominal aortic aneurysm is present ingrid suring 5.6 cm. The pancreas is not well visualized due to obscuration from bowel gas. The visualized portions of the IVC and aorta are grossly unremarkable. IMPRESSION: Gallbladder sludge is present with thickened and edematous appearance to the gallbladder wall; nonspe cific. This can be seen in cholecystitis or may be related to fluid overload / third-spacing. Incidental note of abdominal aortic aneurysm represent measuring 5.6 cm. Bilateral pleural effusions are present.
[2024-09-26 12:50] LABS: Hepatitis B Surface Antigen Negative (Negative)
[2024-09-26 13:00] LABS: INR 2.41 (0.9-1.15); Prothrombin Time 23.4 sec (9.3-11.8)
[2024-09-26 13:04] LABS: Partial Thromboplastin Time 72.6 SEC (24.5-34.5)
[2024-09-26 13:14] LABS: Hepatitis C Antibody Negative (Negative)
[2024-09-26] MEDS ORDERED: SODIUM CHLORIDE 0.9% 1,000 ML IV SCH (13:45)
[2024-09-26] MEDS: SODIUM CHLORIDE 0.9% 1,000 ML IV SCH (14:00)
[2024-09-26 14:21] LABS: Base Excess -14.9 mmol/L (-2.0-3.0)
[2024-09-26] MEDS: ACETYLCYSTEINE IV ONE ×2 (14:47→15:56)
[2024-09-26] MEDS: D5W 5% IV ONE ×2 (14:47→15:56)
[2024-09-26] MEDS ORDERED: HYDROCORTISONE SOD SUCC 100 MG/2ML INJ VIAL IV ONE (16:00)
[2024-09-26] MEDS: PHYTONADIONE (VIT K)10 MG/ML 1ML VIAL SUBCUT ONE (16:31)
[2024-09-26] MEDS: HYDROCORTISONE SOD SUCC 100 MG/2ML INJ VIAL IV ONE (16:45)
[2024-09-26] MEDS: SODIUM BICARB 50mEq/50ml Vial 150 ML in D5W 5% 1,000 ML IV SCH (17:02)
[2024-09-26] MEDS: EPINEPHrine HCL 250 ML IV SCH (17:21)
[2024-09-26] MEDS: NOREPINEPHRINE BITARTRATE 32 MG in SODIUM CHL 0.9% 218 ML IV SCH (17:30)
[2024-09-26] MEDS: ACETYLCYSTEINE 200MG/ML IV SOL 4,500 MG in D5W 5% 1,000 ML IV SCH (20:02)
[2024-09-26] MEDS: HYDROCORTISONE SOD SUCC 100 MG/2ML INJ VIAL IV SCH (21:12)
[2024-09-26] MEDS: MEROPENEM 1GM IVPB 50 ML IV SCH (21:12)
[2024-09-27] VITALS (113 sets, daily range): BP systolic 91–130; BP diastolic 53–85; PULSE 71–98; RESP 16–23; TEMP 96.1–99; O2SAT 92–100
[2024-09-27 04:10] LABS: Hematocrit 32.8 % (41.0-53.0); Hemoglobin 10.3 g/dL (13.5-17.5); Mean Corpuscular Hemoglobin 27.9 pg (28.0-32.0); Mean Corpuscular Volume 88.8 fL (80.0-100.0); Nucleated Red Blood Cells % 0.5 %
[2024-09-27 04:21] LABS: Anion Gap 18 (5-15); BUN/Creatinine Ratio 26.5 (10.0-20.0); Chloride 104 mmol/L (98-107); Magnesium 1.9 mg/dL (1.6-2.6); Potassium 4.7 mmol/L (3.5-5.1); Sodium 139 mmol/L (136-145)
[2024-09-27 04:22] LABS: Lactic Acid w/Reflex 7.3 mmol/L (0.4-2.0)
[2024-09-27 04:23] LABS: INR 3.85 (0.9-1.15); Prothrombin Time 35.7 sec (9.3-11.8)
[2024-09-27 04:24] LABS: Albumin 1.9 g/dL (3.2-4.8); Alkaline Phosphatase 244 U/L (46-116); Bilirubin, Total 2.1 mg/dL (0.2-1.0); Blood Urea Nitrogen 45 mg/dL (9-23); Carbon Dioxide 17 mmol/L (20-31); Glucose 290 mg/dL (74-106); Total Protein 3.7 g/dL (5.7-8.2)
[2024-09-27 04:25] LABS: Calcium 5.9 mg/dL (8.7-10.4)
[2024-09-27 04:29] LABS: Partial Thromboplastin Time 92.5 SEC (24.5-34.5)
[2024-09-27 04:36] LABS: Alanine Aminotransferase 1196 U/L (7-40)
[2024-09-27] MEDS: CALCIUM GLUC 1,000mg/50ml-NS 50 ML IV ONE (05:10)
[2024-09-27] MEDS: PHYTONADIONE (VIT K)10 MG/ML 1ML VIAL SUBCUT ONE (05:10)
--- NOTE | 2024-09-27 05:48 | DVH ---
CHEST RADIOGRAPH Indication: intubated Technique: Single frontal view of the chest was obtained COMPARISON: XY CHEST XRAY 1 VIEW on DOS: 09/25/24, XY CHEST PORTABLE on DOS: 09/25/24 FINDINGS: Lines and Tubes: Unchanged. Lungs: Stable appearing multifocal bilateral pulmonary airspace disease and left perihilar consolidat ion. Small bilateral pleural effusions. No pneumothorax. Cardiomediastinal contours: Unremarkable Bones: Unremarkable IMPRESSION: 1. Stable multifocal bilateral pulmonary airspace disease and left perihilar consolidation. 2. Small bilateral pleural effusions. 3. Lines and tubes unchanged.
[2024-09-27 06:42] LABS: Base Excess -11.3 mmol/L (-2.0-3.0)
--- NOTE | 2024-09-27 09:34 | ECG ---
[facility] Test Date: 2024-09-26 Test Time: 08:20:10 Pat Name: SARAH BARAJAS Department: ICU Room: [address] [place] [address] A Gender: M [employer]: NITIN : 1945 Requested By: RUCHI NORTH Order Number: [id number] Reading MD: Jean Figueredo Measurements Intervals [place] Rate: 70 P: 11 UT: 138 QRS: 76 QRSD: 124 T: 83 QT: 438 QTc: 473 Interpretive Statements Sinus rhythm Right bundle branch block Electronically Signed On 10-01-2024 21:28:09 PDT by Jean Figueredo Please click the below link to view image of tracing.
[2024-09-27] MEDS ORDERED: VANCOMYCIN 1GM/200ML PM 200 ML IV ONE (10:00)
--- NOTE | 2024-09-27 11:17 | DVH ---
Indication: septic shock pneumonia, ASSESS FOR INFECTION Technique: CT axial images of the chest, abdomen and pelvis are obtained without contrast. Coronal an d sagittal reformats were obtained. Radiation Dose Information: CTDI volume is 8.9 mGy. Dose-length product is 631.96 mGy*cm Comparison: None FINDINGS: There is limited interpretation of the abdomen and pelvis without administration of intravenous contr ast. Endotracheal tube. Trachea patent. Pulmonary emphysematous changes. Right lower lobe airspace consolidation/ nodularity. Left lower lobe more pronounced airspace consolidation. The heart is normal in size. Aortic atherosclerotic disease. Coronary artery calcification disease. Small bilateral pleural effusions. Adrenal glands, spleen, pancreas, liver unremarkable in shape. Gallbladder hyperdensity/sludge. Kidneys demonstrate no hydronephrosis. Nasogastric tube projecting towards stomach. Stomach is relatively nondistended. The small bowel lo ops appear normal in caliber. Rectal catheter. Large volume stool in the rectum. Moderate volume stool in the colon. Colonic dive rticular disease. Small amount of ascites fluid. Severe aneurysmal dilatation of the abdominal aorta up to 5.4 x 5.6 cm Bladder decompressed by Clark catheter. Limited evaluation of the pelvis secondary to hip arthroplas ty hardware. Soft tissue edema / anasarca. There is a right common femoral vein central venous catheter however the catheter tip appears to be e xtending into the deep pelvis /right internal iliac vein territory. Moderate to advanced lumbar degenerative disc disease. Moderate thoracic degenerative disc disease. IMPRESSION: Limited without contrast. Limited evaluation without contrast. Bilateral pulmonary airspace consolidation most pronounced within the left lower lobe. Severe pulmonary emphysematous changes. Right lower lobe nodularity which is likely secondary to und erlying infection /pneumonia. Recommend short-term follow-up chest CT in 3 months to ensure resoluti on and exclude any type of underlying pulmonary nodule/neoplasm. Soft tissue edema /anasarca. Small bilateral pleural effusions. Abdominal aortic aneurysm measuring 5.6 cm in diameter. There is a right common femoral vein central venous catheter with the catheter tip projecting into th e region deep pelvis, likely within the right internal iliac vein branch. Recommend vascular surgery consultation defer removal/repositioning. Gallbladder hyperdensity/ sludge. Small amount of ascites fluid. Large volume stool in the rectum. Other findings as described.
--- NOTE | 2024-09-27 12:52 | DVHINCON2 ---
GI Consult Consult Note GI consult note Date of Consultation: 09/27/2024 Chief Complaint: Liver failure Referring Physician: Dr. Allen H&P: 79-year-old male admitted with ALOC. Patient is intubated and sedated. History from chart, family at bedside, RN and resident Patient had any pain starting April 2024, and treated with [place], which per patient took excessive amounts Also history of heavy alcohol use, per quit April 2024 No history of hepatitis in past Family reports chronic anorexia Past Medical History: Left femur fracture s/p hip replacement Bedbound for several months Possible COPD or respiratory disease (family unsure) Possible history of DM [place] abuse for chronic pain Past Surgical History: Left hip replacement Social History: Last alcohol intake Apr 2021, active smoker Lives at home with Denies illicit drug use (per [place] overuse) Family History: Unknown Review of Systems: As above Physical exam: General: Patient is intubated and sedated Chest: lung peraza clear to auscultation Heart: RRR, no murmur Abdomen: non-distended, soft, +BS Labs:Labs Test 09/26/24 03:38 09/25/24 22:42 09/25/24 22:30 09/25/24 19:45 Range/Units White Blood Count 21.4 #H 4.4-10.8 10^3/uL Red Blood Count 3.84 L 4.5-5.90 10^6/uL Hemoglobin 11.0 L 13.5-17.5 g/dL Hematocrit 33.7 L 41.0-53.0 % Mean Corpuscular Volume 87.8 80.0-100.0 fL Mean Corpuscular Hemoglobin 28.6 28.0-32.0 pg Mean Corpuscular Hemoglobin Concent 32.6 32.0-36.0 g/dL Red Cell Distribution Width 21.0 H 11.8-14.3 % Platelet Count 107 L 140-450 10^3/uL Mean Platelet Volume 10.8 6.9-10.8 fL Neutrophils (%) (Auto) 37.0-80.0 % Lymphocytes (%) (Auto) 10.0-50.0 % Monocytes (%) (Auto) 0.0-12.0 % Basophils (%) (Auto) 0.0-2.0 % Neutrophils # (Auto) 1.6-8.6 10 ^3/uL Lymphocytes # (Auto) 0.4-5.4 10 ^3/uL Monocytes # (Auto) 0-1.3 10 ^3/uL Sodium Level 143 136-145 mmol/L Potassium Level 4.8 3.5-5.1 mmol/L Chloride Level 108 H 98-107 mmol/L Carbon Dioxide Level 22 20-31 mmol/L Anion Gap 13 5-15 Blood Urea Nitrogen 40 H 9-23 mg/dL Creatinine 1.33 H 0.700-1.30 mg/dL Glomerular Filtration Rate Calc 55 >90 mL/min BUN/Creatinine Ratio 30.1 H 10.0-20.0 Serum Glucose 106 74-106 mg/dL Calcium Level 6.3 L 8.7-10.4 mg/dL Total Bilirubin 1.9 H 0.2-1.0 mg/dL Aspartate Amino Transferase (AST) 13-40 U/L Alkaline Phosphatase 212 H 46-116 U/L Total Protein 4.4 L 5.7-8.2 g/dL Albumin 2.2 L 3.2-4.8 g/dL Random Vancomycin Level 13.0 H 5-10 ug/mL Blood Gas Specimen Type Arterial Blood Gas Sample Site Right radial Blood Gas Patient Temperature 37.0 Arterial Blood Date Drawn [id number] Arterial Blood pH 7.274 L 7.350-7.450 Arterial Blood Partial Pressure CO2 46.1 35.0-48.0 mmHg Arterial Blood Partial Pressure O2 78.2 L 83.0-108.0 mmHg Arterial Blood HCO3 20.9 L 21.0-28.0 mmol/L Arterial Blood Oxygen Saturation 94.2 94.0-98.0 % Arterial Blood Base Excess -5.9 L -2.0-3.0 mmol/L Arterial Blood Oxyhemoglobin 93.2 L 94.0-98.0 % Arterial Blood Carboxyhemoglobin 0.8 0.5-1.5 % Arterial Blood Methemoglobin 0.3 0.0-1.5 % Cole Test N/a Blood Gas Total Hemoglobin 12.00 L 13.5-17.5 g/dL Blood Gas Set Respiration Rate 18.0 Blood Gas Modality Vent - ac FiO2 % 60.0 Blood Gas Tidal Volume 450.0 Blood Gas PEEP or CPAP 5.0 Blood Gas Notified By Acting Section Chief shreya naomi Creatine Kinase 226 H 46-171 U/L Blood Gas Comments 1st paged 1999 Blood Gas Critical Value Read Back Yes Blood Gas Notified Whom cirilo Caballero Blood Gas Notified Time [id number] Test 09/25/24 18:38 09/25/24 16:56 09/25/24 15:56 09/25/24 13:04 Range/Units POC Glucose 101 70-106 mg/dl Urine Color Yellow Yellow Urine Clarity Turbid H Clear Urine pH 6.0 5.0-9.0 Urine Specific [place] 1.017 1.001-1.035 Urine Protein 1+ H Negative Urine Ketones Negative Negative Urine Blood 3+ H Negative /uL Urine Nitrite Negative Negative Urine Bilirubin Negative Negative Urine Urobilinogen 3 H Negative mg/dL Urine Leukocyte Esterase 2+ Negative /uL Urine RBC 14 0 - 3 /hpf Urine Microscopic WBC 10 H 0-3 /HPF Urine Squamous Epithelial Cells Few <5 /hpf Urine Bacteria Few H None Seen /hpf Urine Mucus Few None Seen Urine Glucose Normal Normal mg/dL Lactic Acid Level 7.8 *H 0.4-2.0 mmol/L Troponin I High Sensitivity 133 *H </=54 ng/L Large Platelets Few Poikilocytosis (manual) Slight Anisocytosis (manual) Slight Ovalocytes Few Schistocytes Few B-Type Natriuretic Peptide 199.19 0-100 pg/mL Microbiology Date/Time Source Procedure Growth Status 09/25/24 14:00 Blood Blood Culture - Preliminary Resulted Imaging: CT abdomen pelvis IMPRESSION: Limited without contrast. Limited evaluation without contrast. Bilateral pulmonary airspace consolidation most pronounced within the left lower lobe. Severe pulmonary emphysematous changes. Right lower lobe nodularity which is likely secondary to underlying infection /pneumonia. Recommend short-term follow-up chest CT in 3 months to ensure resolution and exclude any type of underlying pulmonary nodule/neoplasm. Soft tissue edema /anasarca. Small bilateral pleural effusions. Abdominal aortic aneurysm measuring 5.6 cm in diameter. There is a right common femoral vein central venous catheter with the catheter tip projecting into the region deep pelvis, likely within the right internal iliac vein branch. Recommend vascular surgery consultation defer removal/repositioning. Gallbladder hyperdensity/ sludge. Small amount of ascites fluid. Large volume stool in the rectum. Other findings as described. Abdominal ultrasound IMPRESSION: Gallbladder sludge is present with thickened and edematous appearance to the gallbladder wall; nonspecific. This can be seen in cholecystitis or may be related to fluid overload / third-spacing. Incidental note of abdominal aortic aneurysm represent measuring 5.6 cm. Bilateral pleural effusions are present. Assessment: Acute toxic/metabolic encephalopathy Septic shock with bacteremia, UTI possible pneumonia Liver failure possible secondary to Tylenol toxicity History of heavy alcohol in past Severe coagulopathy Plan: Discussed with Dr. Rivzi Continue Mucomyst, check Tylenol levels in a.m. Ammonia level, if elevated lactulose 30 mL b.i.d., and recheck ammonia in a.m. Continue IV antibiotics Monitor labs Overall poor prognosis Discussed plan with family at bedside and RN Thank you for this consult Date of Service: Sep 27, 2024 Billing Provider: NAKIA TAY Common Visit Codes: CONSULT ONLY Consultation Codes: [id number]-[id number] CONSULT <60MIN NAKIA TAY Sep 27, 2024 12:52
--- NOTE | 2024-09-27 13:44 | DVH ---
Indication: WEAK PULSES Technique: Real- time ultrasound images of the bilateral lower extremity with grayscale, color, and spectral wave Doppler. Comparison: None Findings: Nonvisualization of the right [employer]DOOR STUDIES DIRECTOR and proximal SFA secondary to overlying dressing. Biphasic waveform s in the mid to distal right SFA, popliteal artery. Biphasic/ triphasic waveform right anterior tibi al and posterior tibial arteries. Biphasic/triphasic waveform in the left [employer]DOOR STUDIES DIRECTOR, SFA. Monophasic wavef orm left posterior tibial, anterior tibial arteries. Scattered atherosclerotic calcification disease. Extensive calcification at the left [employer]DOOR STUDIES DIRECTOR bifurcation/ proximal left profunda femoral artery. Peak systolic velocities are as follows (in cm/s): Right: Common femoral artery: Nonvisualized Profunda femoris: Nonvisualized Proximal superficial femoral: Nonvisualized Mid superficial femoral artery: 69 Distal superficial femoral artery: 98 Popliteal artery: 37 Posterior tibial artery: 89 Anterior tibial artery: 66 Dorsalis pedis artery: 27 Left: Common femoral artery: 36 Profunda femoris: 35 Proximal superficial femoral: 49 Mid superficial femoral artery: 75 Distal superficial femoral artery: 62 Popliteal artery: 103 Posterior tibial artery: 20 Anterior tibial artery: 16 Dorsalis pedis artery: 43 Impression: The right OUTDOOR STUDIES DIRECTOR and proximal SFA are not adequately characterized due to overlying dressings. Monophasic waveforms and diminished velocities within the left anterior tibial, posterior tibial michelle yosef consistent with hemodynamically significant stenosis. Decreased waveform in the right dorsalis pedis artery which could indicate hemodynamically significan t stenosis. Recommend CT angiogram of the lower extremities to further evaluate.
--- NOTE | 2024-09-27 13:52 | DVHPNRES ---
Progress Note Date Seen: Sep 27, 2024 Resident Creating Document: IRIS QUIJANO RESIDENT Has the PT tested + for MRSA If YES, has PT been informed?: No Medical Necessity Reason Pt with a Central, PICC or Fol: Yes Subjective Review of Systems 79-year-old cachectic male with PMHx of left hip fracture s/p hip replacement and functional decline, found unresponsive at home by on 09/25/24. Last known normal was reportedly 0000 the same day. On EMS arrival, he was in severe respiratory distress and required intubation en route with a 7.0 ETT. Upon ED arrival, he was unresponsive and hypotensive; he was started on vasopressors and IV fluids. Initial labs were notable for profound metabolic acidosis, elevated transaminases, acute kidney injury, elevated lactate (7.8), and leukocytosis with bandemia. UA suggestive of UTI. Family reports chronic anorexia and likely [place] overuse for chronic left hip pain. No known drug allergies. Currently requiring multiple vasopressors and mechanical ventilation in ICU. Past Medical History: Left femur fracture s/p hip replacement Bedbound for several months Possible COPD or respiratory disease (family unsure) Possible history of DM [place] abuse for chronic pain Surgical History: Left hip replacement Medications: [place] (home use per family) Prednisone (prior use per family, unclear duration/dose) Allergies: No known drug allergies Social History: Last alcohol intake Apr 2021, active smoker Lives at home with Denies illicit drug use (per [place] overuse) 09/27/24: ct scan abdomen/chest: Bilateral pulmonary airspace consolidation most pronounced within the left lower lobe, Severe pulmonary emphysematous changes. Right lower lobe nodularity which is likely secondary to underlying infection /pneumonia, Small bilateral pleural effusions, Abdominal aortic aneurysm measuring 5.6 cm in diameter, There is a right common femoral vein central venous catheter with the catheter tip projecting into the region deep pelvis, likely within the right internal iliac vein branch, Gallbladder hyperdensity/ sludge, Small amount of ascites fluid, Large volume stool in the rectum, start feedings, GI consult, ammonia levels were high, lactulose started, leg arterial US showed severe PAD, we will continue treatment but prognosis is poor Objective vital signs Vital Sign Date Time Temp Pulse Resp B/P (MAP) Pulse Ox O2 Delivery O2 Flow Rate FiO2 09/27/24 13:33 82 22 126/76 (93) 94 30 09/27/24 11:15 97.7 207.9 09/27/24 10:00 Mechanical Ventilator+ 09/27/24 08:00 0 Total Intake and Output 09/26/24 09/26/24 09/27/24 15:00 23:00 07:00 Intake Total 2804.00 ml 1763.815 ml 1318.751 ml Output Total 340 ml 35 ml Balance 2804.00 ml 1423.815 ml 1283.751 ml medications Current Medications Medications Dose Ordered Sig/Hari Route Start Time Stop Time Status Last Admin Dose Admin Midazolam HCl 50 ml @ 1 mls/hr Q24H IV 09/25/24 13:00 09/26/24 21:17 2 MLS/HR Fentanyl Citrate 250 ml @ 2.5 mls/hr Q24H IV 09/25/24 13:00 09/26/24 13:44 7.5 MLS/HR Vasopressin 20 units/Sodium Chloride 100 ml @ 9 mls/hr Q11H7M IV 09/25/24 19:00 09/27/24 00:50 9 MLS/HR Vancomycin HCl 0 ml @ 0 mls/hr UD IV 09/25/24 19:45 Meropenem 50 ml @ 17 mls/hr Q12HR IV 09/26/24 22:00 09/27/24 09:32 17 MLS/HR Pantoprazole Sodium 40 mg DAILY IV 09/26/24 11:00 09/27/24 09:31 40 MG Acetylcysteine 4500 mg/Dextrose 1,022.5 ml @ 62.5 mls/ hr Q16H IV 09/26/24 18:15 09/27/24 10:15 62.5 MLS/HR Norepinephrine Bitartrate 32 mg/ Sodium Chloride 250 ml @ 0.938 mls/ hr Q24H IV 09/26/24 14:30 09/27/24 08:06 11.25 MLS/HR Hydrocortisone Sodium Succinate 50 mg Q12HR IV 09/26/24 22:00 09/27/24 09:30 50 MG Epinephrine HCl 250 ml @ 7.5 mls/hr Q24H IV 09/26/24 17:00 09/26/24 17:21 7.5 MLS/HR Sodium Bicarbonate 150 ml/Dextrose 1,150 ml @ 75 mls/hr [id number] IV 09/27/24 11:30 Enteral Nutritional Formula 1,000 ml 30ML/HR GT 09/27/24 11:30 Examination Physical Exam General: Cachectic, severely distressed, intubated HEENT: Normal Neck: No JVD CV: Regular rate/rhythm, no murmurs Resp: Intubated, bilateral breath sounds Abdomen: Soft, non-tender, thrill in abdomen, AAA 5.6cm Extremities: No edema, no DVT signs Neuro: GCS not assessable due to sedation; no focal findings Skin: Pale, multiple pressure ulcers in the back, multiple ecchymosis Lines/Devices: Intubated with 7.0 ETT at 23 cm Central line: Right femoral triple lumen Clark catheter in place laboratory and microbiology Laboratory Tests 09/27/24 03:40 Test 09/27/24 03:40 Range/Units Serum Glucose 290 #H 74-106 mg/dL Microbiology Date/Time Source Procedure Growth Status 09/25/24 16:56 Voided Urine Urine Culture - Final Complete 09/25/24 14:00 Blood Blood Culture - Preliminary Resulted 09/25/24 12:40 Sputum Gram Stain - Final Resulted 09/25/24 12:40 Sputum Respiratory Culture - Preliminary Resulted Problem List/Assessment/Plan Problem List/Assessment/Plan Neurology #Acute Toxic/Metabolic Encephalopathy: Likely multifactorial (shock liver, SANJAY, sepsis, tylenol overdose) #Moderate chronic microvascular ischemic changes. #Mild global cerebral volume loss fentanyl and midazolam RASS-3 ID #Bacteriemia #Pneumonia #UTI meropenem and vancomycin 09/28/24: ct scan abdomen/chest: Bilateral pulmonary airspace consolidation most pronounced within the left lower lobe, Severe pulmonary emphysematous changes. Right lower lobe nodularity which is likely secondary to underlying infection /pneumonia, Small bilateral pleural effusions, Abdominal aortic aneurysm measuring 5.6 cm in diameter, There is a right common femoral vein central venous catheter with the catheter tip projecting into the region deep pelvis, likely within the right internal iliac vein branch, Gallbladder hyperdensity/ sludge, Small amount of ascites fluid, Large volume stool in the rectum, start feedings, GI consult, ammonia levels were high, lactulose started, leg arterial US showed severe PAD, we will continue treatment but prognosis is poor Cardiology #Multiorgan failure #Septic shock due to bacteremia, UTI, possible pneumonia, multiple pressure wounds, liver failure #NSTEMI type 2 likely due to demand ischemia started on IV fluids bicarb drip, norepinephrine, vasopressin and epinephrine hydrocortisone IV Blood cultures pending: prelim gram+ and gram- growth pending echo ekg showed multiple PAC, NC prolongation Respiratory #Acute respiratory failure due to septic shock, COPD exacerbation and pneumonia #Respiratory acidosis resolving #Pneumonia gram+/ gram - #COPD exacerbation #Bilateral pleural effusions Intubated for respiratory distress; AC/VC mode. meropenem + vancomycin pending cultures Fio2 trending down high risk of bleeding, no thoracentesis GI #Acute liver failure due to Tylenol toxicity #Shock liver #Severe malnutrition and cachexia #distal AAA #Possible GI bleeding #Severe coagulopathy #Gallbladder hyperdensity/ sludge Started on acetylcysteine protocol Vitamin K GI consult start feedings hb stable Metabolic #Hypoglycemia at admission #Severe lactic acidosis #Severe metabolic acidosis #Possible hypothyroidism #Hypocalcemia bicarb drip 3 amp + d5w 75 cc/h due to high risk of arrhythmia: no T4 supplementation for now . TSH 7 calcium gluconate given Renal #SANJAY probably due to VMN, worsening due to multiorgan failure #Complicated UTI #Hematuria due to coagulopathy in UA oliguria almost anuria bicarb drip 75cc/h meropenem + vanc Heme/onc #Leukocytosis with bands #Anemia due to possible chronic disease #Thrombocytopenia #Severe coagulopathy #Hyperammonemia hb stable, but there is a concern of GI bleeding due to dark NG tube output MSK #Multiple wounds and ecchymosis Patient is on a severe coagulopathic state and severe denutrition: poor prognosis, wound consult: supportive care consult SS Case discussed with Dr Lechuga Time spent of critical care 114 min, excluding procedures, case extensively discussed with the Michelle and son Dinesh, family doesn't want compressions in case of cardiac arrest, but they agree on defibrillation, ACLS medications and mechanical ventilation, overall very poor prognosis, patient is having multiorgan failure with severe coagulopathy. Plan discussed with: Spouse, Son My Orders My Orders Orders - IRIS QUIJANO Procedure Category Date Status Time Abg W/ Co-Ox RT 09/26/24 Logged 13:48 Epinephrine Hcl PHA 09/26/24 In Process 17:00 Chest Xray 1 View XY 09/27/24 Resulted 04:00 Abg W/ Co-Ox RT 09/27/24 Logged 04:00 Chst Ab Pel Wo Con-No CT 09/26/24 Resulted Iv/Oral 20:30 Mrsa Screen KAILEE 09/26/24 In Process 20:08 * Wound Consult CONS 09/27/24 Transmitted Bilat Low Ext Art US 09/27/24 Resulted Duplex 10:06 Blood Culture KAILEE 09/27/24 In Process 12:30 Urine Bacterial KAILEE 09/27/24 Uncollected Culture 12:30 Respiratory Culture KAILEE 09/27/24 Uncollected W/ Gs 12:30 Dietary Evaluation Review Comments: Step 1. Tube feeding Vital HP. goal rate @40ml/hr providing 960kcal, 84g protein 803 ml free water; supporting 106% energy needs and 107% protein needs. Step 2. Increase Vital HP to 45ml/hr (94g protein and 1080 kcal, 903ml free water) when pt tolerates the 40ml/hr regimen. 3, Reassess needs and medical feasiblilty of PO feeding when pt is extubated. Expected Outcomes/Goals: support protein and energy needs and maintain current wt. Date of Service: Sep 27, 2024 Billing Provider: RUCHI LECHUGA MD Common Visit Codes: 52598-[id number] CARE 30-74 MIN, [id number] CARE-EACH +30MIN (x2) IRIS QUIJANO RESIDENT Sep 27, 2024 13:52 RUCHI LECHUGA MD Sep 29, 2024 11:05
[2024-09-27] MEDS: VANCOMYCIN 500mg/100mL 100 ML IV ONE (14:12)
[2024-09-27] MEDS: SODIUM BICARB 50mEq/50ml Vial 150 ML in D5W 5% 1,000 ML IV SCH (14:13)
--- NOTE | 2024-09-27 17:42 | DVHSR ---
APPROVED REPORT EXAM: Two-dimensional and M-mode echocardiogram with Doppler, color Doppler and Bubble Study. Blood Pressure: 124/80 mmHg INDICATION Dyspnea EF RISK FACTORS Height: 5'6", Weight: 98 DIMENSIONS LVDd3.4 (3.8-5.7cm)LA (2D)3.1 (1.9-4.0cm)Aortic Root (2.0-3.7cm) LVDs2.4 (2.5-4.0cm)LA (MM) (1.9-4.0cm)Aortic Cusp Exc (1.5-2.0cm) EF (%) 60.0 (55-70%)Rt. Atrium3.7 (1.9-4.0cm)Asc. Aorta cm IVSd0.9 (0.7-1.1cm)RV (D)4.2 (1.8-2.4cm) Mitral Valve MitralMitral Stenosis E/A ratio0.02D MVAcm2 Aortic Valve Aortic ValveAortic Stenosis 2D AVA2.91cm2 Pulmonic Valve V21.62m/s Tricuspid Valve TR Velocity3.51m/s [id number] Other Information Quality : Technically LimitedRhythm : Technically limited study due to body habitus and on vent. Conclusion LVEF 55-60%, mild LVH Right ventricle mildly dilated, normal function Interatrial septum is aneurysmal negtive bubble study for shunt. Moderate pulmonary hypertension, RVSP 50-65 mmgh
[2024-09-27 19:42] LABS: Urine Protein, UAD 2+ (Negative)
[2024-09-27] MEDS: LACTULOSE 20Gm/30ML SOLN PO SCH (21:12)
[2024-09-27] MEDS: Jevity 1.2 Cal/Fiber 1 Liter GT SCH (21:14)
[2024-09-28] VITALS (107 sets, daily range): BP systolic 94–133; BP diastolic 61–85; PULSE 60–136; RESP 18–23; TEMP 77.7–99.5; O2SAT 92–97
[2024-09-28 03:37] LABS: Anion Gap 15 (5-15); BUN/Creatinine Ratio 25.1 (10.0-20.0); Carbon Dioxide 24 mmol/L (20-31); Magnesium 1.8 mg/dL (1.6-2.6); Potassium 3.8 mmol/L (3.5-5.1); Sodium 136 mmol/L (136-145)
[2024-09-28 04:00] LABS: Hematocrit 29.7 % (41.0-53.0); Hemoglobin 9.8 g/dL (13.5-17.5); Mean Corpuscular Hemoglobin 28.4 pg (28.0-32.0); Mean Corpuscular Volume 85.5 fL (80.0-100.0)
[2024-09-28 04:08] LABS: Alanine Aminotransferase 770 U/L (7-40); Albumin 1.7 g/dL (3.2-4.8); Alkaline Phosphatase 276 U/L (46-116); Bilirubin, Total 2.2 mg/dL (0.2-1.0); Blood Urea Nitrogen 50 mg/dL (9-23); Chloride 97 mmol/L (98-107); Glucose 282 mg/dL (74-106); Total Protein 3.5 g/dL (5.7-8.2)
[2024-09-28 04:10] LABS: Calcium 5.4 mg/dL (8.7-10.4)
[2024-09-28 04:31] LABS: Total Cells Counted 100.0 (100)
[2024-09-28 04:32] LABS: Anisocytosis Slight
[2024-09-28 04:33] LABS: Ovalocytes MODE
[2024-09-28] MEDS: CALCIUM GLUC 1,000mg/50ml-NS 50 ML IV SCH (05:22)
--- NOTE | 2024-09-28 05:44 | DVH ---
CHEST RADIOGRAPH Indication: intubated Technique: Single frontal view of the chest was obtained COMPARISON: XY CHEST XRAY 1 VIEW on DOS: 09/27/24, XY CHEST XRAY 1 VIEW on DOS: 09/25/24, XY CHEST PORT ABLE on DOS: 09/25/24 FINDINGS: Lines and Tubes: Endotracheal tube and enteric catheter in satisfactory position. Lungs: Multifocal left lung airspace disease. Pleura: Small left pleural effusion. No pneumothorax. Cardiomediastinal contours: Unremarkable Bones: Unremarkable IMPRESSION: Slightly improved aeration of the lungs.
[2024-09-28] MEDS: AMIODARONE 360mg/200mL PREMIX 200 ML IV ONE (06:57)
[2024-09-28 07:00] LABS: Base Excess -1.9 mmol/L (-2.0-3.0)
--- NOTE | 2024-09-28 08:19 | ECG ---
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
[2024-09-28 10:49] LABS: INR 2.22 (0.9-1.15); Prothrombin Time 21.7 sec (9.3-11.8)
[2024-09-28 10:50] LABS: Partial Thromboplastin Time 109.1 SEC (24.5-34.5)
[2024-09-28] MEDS: AMIODARONE 360mg/200mL PREMIX 200 ML IV SCH (12:47)
--- NOTE | 2024-09-28 15:00 | DVHCONRES ---
Date Seen: Sep 28, 2024 Resident Creating Document: SIENNA CHARLES RESDIENT History of Present Illness 79-year-old cachectic male with PMHx of left hip fracture s/p hip replacement and functional decline, found unresponsive at home by on 09/25/24. Last known normal was reportedly 0000 the same day. On EMS arrival, he was in severe respiratory distress and required intubation en route with a 7.0 ETT. Upon ED arrival, he was unresponsive and hypotensive; he was started on vasopressors and IV fluids. Initial labs were notable for profound metabolic acidosis, elevated transaminases, acute kidney injury, elevated lactate (7.8), and leukocytosis with bandemia. UA suggestive of UTI. Family reports chronic anorexia and likely [place] overuse for chronic left hip pain. No known drug allergies. Currently requiring vasopressors and mechanical ventilation in ICU. Cardiology consulted for new onset atrial fibrillation. Allergies: Coded Allergies: NO KNOWN ALLERGIES (Unverified , 07/25/24) Current Medications Current Medications Medications (Trade) Dose Ordered Sig/Hair Route PRN Reason Start Time Stop Time Status Last Admin Lactulose 30 ml BID PO 09/27/24 22:00 09/28/24 10:45 Calcium Gluconate/ Sodium Chloride 50 ml @ 100 mls/hr Q30M IV 09/28/24 05:15 09/28/24 06:14 DC 09/28/24 05:54 Vital Signs Vital Signs Date Time Temp Pulse Resp B/P (MAP) Pulse Ox O2 Delivery O2 Flow Rate FiO2 09/28/24 14:30 96.6 65 22 110/74 (86) 97 205.9 09/28/24 14:00 Mechanical Ventilator+ 30 30 09/28/24 08:00 0 Physical Exam General: RASS -3, afebrile, mucosae are moist Cardiovascular: Normal S1 and S2. No murmurs, gallops or rubs Respiratory: Mechanically assisted ventilation, equal bilateral airway entree. Clear lung sounds on auscultation Abdomen: Soft, nontender, no organomegaly, normal bowel sounds MSK/skin: Mobilization of limbs cannot be evaluated. Skin is dry and warm. Neurological: Orientation cannot be assessed. No apparent motor no sensitive deficits. Pupils are isocoric and reactive Labs/Diagnostic Data Labs Test 09/28/24 11:30 09/28/24 09:50 09/28/24 06:41 09/28/24 02:46 Range/Units D-Dimer, Quantitative 30.11 H 0.0-0.49 mg/L FEU Prothrombin Time 21.7 H 9.3-11.8 sec Prothrombin Time INR 2.22 H 0.9-1.15 Activated Partial Thromboplast Time 109.1 *H 24.5-34.5 SEC Blood Gas Specimen Type Arterial Blood Gas Sample Site Right radial Blood Gas Patient Temperature 37.0 Arterial Blood Date Drawn [id number] Arterial Blood pH 7.337 L 7.350-7.450 Arterial Blood Partial Pressure CO2 45.9 35.0-48.0 mmHg Arterial Blood Partial Pressure O2 67.1 L 83.0-108.0 mmHg Arterial Blood HCO3 24.0 21.0-28.0 mmol/L Arterial Blood Oxygen Saturation 90.4 L 94.0-98.0 % Arterial Blood Base Excess -1.9 -2.0-3.0 mmol/L Arterial Blood Oxyhemoglobin 89.5 L 94.0-98.0 % Arterial Blood Carboxyhemoglobin 0.7 0.5-1.5 % Arterial Blood Methemoglobin 0.3 0.0-1.5 % Cole Test Modified Blood Gas Total Hemoglobin 10.60 L 13.5-17.5 g/dL Blood Gas Set Respiration Rate 22.0 Blood Gas Modality Vent - ac FiO2 % 30.0 Blood Gas Tidal Volume 450.0 Blood Gas PEEP or CPAP 5.0 White Blood Count 7.2 # 4.4-10.8 10^3/uL Red Blood Count 3.47 L 4.5-5.90 10^6/uL Hemoglobin 9.8 L 13.5-17.5 g/dL Hematocrit 29.7 L 41.0-53.0 % Mean Corpuscular Volume 85.5 80.0-100.0 fL Mean Corpuscular Hemoglobin 28.4 28.0-32.0 pg Mean Corpuscular Hemoglobin Concent 33.2 32.0-36.0 g/dL Red Cell Distribution Width 21.3 H 11.8-14.3 % Platelet Count 75 L 140-450 10^3/uL Mean Platelet Volume 10.3 6.9-10.8 fL Neutrophils (%) (Auto) 37.0-80.0 % Lymphocytes (%) (Auto) 10.0-50.0 % Monocytes (%) (Auto) 0.0-12.0 % Basophils (%) (Auto) 0.0-2.0 % Neutrophils # (Auto) 1.6-8.6 10 ^3/uL Lymphocytes # (Auto) 0.4-5.4 10 ^3/uL Monocytes # (Auto) 0-1.3 10 ^3/uL Differential Total Cells Counted 100.0 100 Neutrophils % (Manual) 84 H 37.0-80.0 Band Neutrophils % (Manual) 1 Lymphocytes % (Manual) 9 L 10.0-50.0 Monocytes % (Manual) 6 0-12 Eosinophils % (Manual) 0 0-7 Basophils % (Manual) 0 0.0-2.0 Metamyelocytes % (manual) 0 Myelocytes % (Manual) 0 Promyelocytes % (Manual) 0 Blast Cells % (Manual) 0 Reactive Lymphocytes 0 Platelet Estimate Decreased Anisocytosis (manual) Slight Sickle Cells Ovalocytes Mode Lutz Cells Moderate Schistocytes Few Sodium Level 136 136-145 mmol/L Potassium Level 3.8 3.5-5.1 mmol/L Chloride Level 97 L 98-107 mmol/L Carbon Dioxide Level 24 20-31 mmol/L Anion Gap 15 5-15 Blood Urea Nitrogen 50 H 9-23 mg/dL Creatinine 1.99 H 0.700-1.30 mg/dL Glomerular Filtration Rate Calc 34 >90 mL/min BUN/Creatinine Ratio 25.1 H 10.0-20.0 Serum Glucose 282 H 74-106 mg/dL Calcium Level 5.4 *L 8.7-10.4 mg/dL Magnesium Level 1.8 1.6-2.6 mg/dL Total Bilirubin 2.2 H 0.2-1.0 mg/dL Aspartate Amino Transferase (AST) 2499 H 13-40 U/L Alanine Aminotransferase (ALT) 770 H 7-40 U/L Alkaline Phosphatase 276 H 46-116 U/L Ammonia 60 H 11-32 umol/L Total Protein 3.5 L 5.7-8.2 g/dL Albumin 1.7 L 3.2-4.8 g/dL Random Vancomycin Level 18.3 H 5-10 ug/mL Acetaminophen Level 29.0 H 10.0-20.0 UG/ML Test 09/27/24 16:44 09/27/24 08:49 09/27/24 03:40 09/26/24 14:11 Range/Units Urine Color [place] Bottom H Yellow Urine Clarity Turbid H Clear Urine pH 5.5 5.0-9.0 Urine Specific [place] 1.017 1.001-1.035 Urine Protein 2+ H Negative Urine Ketones 1+ H Negative Urine Blood 2+ H Negative /uL Urine Nitrite Negative Negative Urine Bilirubin Negative Negative Urine Urobilinogen Normal Negative mg/dL Urine Leukocyte Esterase 3+ Negative /uL Urine RBC 24 0 - 3 /hpf Urine Microscopic WBC 39 H 0-3 /HPF Urine Squamous Epithelial Cells Few <5 /hpf Urine Bacteria Few H None Seen /hpf Urine Mucus Few None Seen Urine Glucose 2+ H Normal mg/dL Lactic Acid Level 6.6 *H 0.4-2.0 mmol/L Eosinophils (%) (Auto) 3.2 0.0-7.0 % Eosinophils # (Auto) 0.4 0-0.8 10 ^3/uL Basophils # (Auto) 0 0-0.2 10 ^3/uL Nucleated Red Blood Cells 0.5 % Phosphorus Level 8.5 H 2.4-5.1 mg/dL Blood Gas Critical Value Read Back Yes Blood Gas Notified Whom nura Torrez Blood Gas Notified Time [id number] Blood Gas Notified By [employer] Worker sharad Smith 09/26/24 11:08 09/26/24 03:38 09/26/24 03:37 09/25/24 22:30 Range/Units Plasma/Serum Blood Alcohol < 3.0 <10 mg/dL Hepatitis A IgM Antibody Negative Hepatitis B Surface Antigen Negative Negative Hepatitis B Core IgM Antibody Negative Negative Hepatitis C Antibody Negative Negative Large Platelets Few Poikilocytosis (manual) Slight Hemoglobin A1c 5.5 <5.7 % A1C Thyroid Stimulating Hormone (TSH) 7.16 H 0.55-4.78 uIU/mL Gamma Glutamyl Transpeptidase 30 <73 U/L Creatine Kinase 226 H 46-171 U/L Test 09/25/24 19:45 09/25/24 18:38 09/25/24 15:56 09/25/24 13:04 Range/Units Blood Gas Comments 1st paged 1999 POC Glucose 101 70-106 mg/dl Troponin I High Sensitivity 133 *H </=54 ng/L B-Type Natriuretic Peptide 199.19 0-100 pg/mL Microbiology Date/Time Source Procedure Growth Status 09/27/24 16:44 Voided Urine Urine Culture - Preliminary Resulted 09/27/24 13:10 Blood Blood Culture - Preliminary NO GROWTH AFTER 24 HOURS OF INCUBATION. Resulted 09/26/24 20:08 Nose MRSA Screen - Final Complete 09/25/24 12:40 Sputum Gram Stain - Final Complete 09/25/24 12:40 Sputum Respiratory Culture - Final Complete Assessment Acute Toxic/Metabolic Encephalopathy likely due to sepsis/Tylenol toxicity Septic shock with multiple organ failure Sepsis due to pneumonia/UTI NSTEMI type 2 likely due to above New onset atrial fibrillation, likely due to electrolyte imbalance/sepsis Distal AAA DIC with acquired coagulopathy Hypocalcemia SANJAY probably due to VMN, worsening due to multiorgan failure Hematuria due to coagulopathy in UA * EKGs shows atrial fibrillation with heart rate 70s * Trop I is mildly raised * Echocardiogram shows, LVEF 55-60%, RVSP 50-65% Plan/recommendation (Case discussed with Dr. Rivero) * Digoxin for rate control for atrial fibrillation * Discontinue amiodarone drip * Replete magnesium * Rest of the per primary team * Severely ill patient, poor prognosis Thank you for giving us the opportunity to care of your patient. Please call back if you have any question/concern. Plan discussed with: Patient, Other (RN) SIENNA CHARLES Sep 28, 2024 15:00
--- NOTE | 2024-09-28 15:16 | DVHPN2 ---
Progress Note - Dictate Date Seen: Sep 28, 2024 Has the PT tested + for MRSA If YES, has PT been informed?: No Medical Necessity Reason Pt with a Central, PICC or Fol: Yes Subjective Patient is still intubated and sedated Leukocytosis is improved Liver enzymes are starting to trend down Tylenol level has gone down to 29 Patient is on an IV Mucomyst drip Ammonia level is up to 50 vital signs Vital Sign Date Time Temp Pulse Resp B/P (MAP) Pulse Ox O2 Delivery O2 Flow Rate FiO2 09/28/24 14:51 67 22 120/71 (87) 97 30 09/28/24 14:30 96.6 205.9 09/28/24 14:00 Mechanical Ventilator+ 09/28/24 08:00 0 Total Intake and Output 09/27/24 09/27/24 09/28/24 15:00 23:00 07:00 Intake Total 1635.688 ml 1409.000 ml 1668.000 ml Output Total 10 ml 35 ml Balance 1635.688 ml 1399.000 ml 1633.000 ml medications Current Medications Medications Dose Ordered Sig/Hair Route Start Time Stop Time Status Last Admin Dose Admin Midazolam HCl 50 ml @ 1 mls/hr Q24H IV 09/25/24 13:00 09/27/24 20:01 1 MLS/HR Fentanyl Citrate 250 ml @ 2.5 mls/hr Q24H IV 09/25/24 13:00 09/27/24 20:00 7.5 MLS/HR Vasopressin 20 units/Sodium Chloride 100 ml @ 9 mls/hr Q11H7M IV 09/25/24 19:00 09/28/24 07:54 9 MLS/HR Vancomycin HCl 0 ml @ 0 mls/hr UD IV 09/25/24 19:45 Meropenem 50 ml @ 17 mls/hr Q12HR IV 09/26/24 22:00 09/28/24 10:44 17 MLS/HR Pantoprazole Sodium 40 mg DAILY IV 09/26/24 11:00 09/28/24 10:44 40 MG Acetylcysteine 4500 mg/Dextrose 1,022.5 ml @ 62.5 mls/ hr Q16H IV 09/26/24 18:15 09/28/24 02:21 62.5 MLS/HR Norepinephrine Bitartrate 32 mg/ Sodium Chloride 250 ml @ 0.938 mls/ hr Q24H IV 09/26/24 14:30 09/28/24 05:26 9.375 MLS/HR Hydrocortisone Sodium Succinate 50 mg Q12HR IV 09/26/24 22:00 09/28/24 10:44 50 MG Epinephrine HCl 250 ml @ 7.5 mls/hr Q24H IV 09/26/24 17:00 09/26/24 17:21 7.5 MLS/HR Sodium Bicarbonate 150 ml/Dextrose 1,150 ml @ 75 mls/hr [id number] IV 09/27/24 11:30 09/28/24 05:22 75 MLS/HR Enteral Nutritional Formula 1,000 ml 30ML/HR GT 09/27/24 11:30 09/27/24 21:14 1,000 ML Lactulose 30 ml BID PO 09/27/24 22:00 09/28/24 10:45 30 ML objective General: Patient is intubated and sedated Chest: lung peraza clear to auscultation Heart: RRR, no murmur Abdomen: non-distended, soft, +BS laboratory and microbiology Laboratory Tests 09/28/24 02:46 Test 09/28/24 02:46 Range/Units Serum Glucose 282 H 74-106 mg/dL Problems(with codes): (1) Metabolic encephalopathy (2) Sepsis (3) Hypoglycemia (4) Anorexia (5) Musculoskeletal pain Prognosis Plan Patient is improving from his Tylenol toxicity Continue IV Mucomyst IV amiodarone for AFib, cardiology on board IV meropenem ; blood cultured show providencia alcalifacions Continue to monitor labs Check hepatitis panel, ferritin, BOWEN IV Protonix, oral lactulose, IV Mucomyst drip Enteral tube feedings as tolerated Dietary Evaluation Review Comments: Step 1. Tube feeding Vital HP. goal rate @40ml/hr providing 960kcal, 84g protein 803 ml free water; supporting 106% energy needs and 107% protein needs. Step 2. Increase Vital HP to 45ml/hr (94g protein and 1080 kcal, 903ml free water) when pt tolerates the 40ml/hr regimen. 3, Reassess needs and medical feasiblilty of PO feeding when pt is extubated. Expected Outcomes/Goals: support protein and energy needs and maintain current wt. Plan discussed with: Other (ICU Nurse) VETO TOLEDO MD Sep 28, 2024 15:16
--- NOTE | 2024-09-28 15:27 | DVHPNRES ---
Progress Note Date Seen: Sep 28, 2024 Resident Creating Document: IRIS QUIJANO RESIDENT Has the PT tested + for MRSA If YES, has PT been informed?: No Medical Necessity Reason Pt with a Central, PICC or Fol: Yes Subjective Review of Systems 79-year-old cachectic male with PMHx of left hip fracture s/p hip replacement and functional decline, found unresponsive at home by on 09/25/24. Last known normal was reportedly 0000 the same day. On EMS arrival, he was in severe respiratory distress and required intubation en route with a 7.0 ETT. Upon ED arrival, he was unresponsive and hypotensive; he was started on vasopressors and IV fluids. Initial labs were notable for profound metabolic acidosis, elevated transaminases, acute kidney injury, elevated lactate (7.8), and leukocytosis with bandemia. UA suggestive of UTI. Family reports chronic anorexia and likely [place] overuse for chronic left hip pain. No known drug allergies. Currently requiring multiple vasopressors and mechanical ventilation in ICU. Past Medical History: Left femur fracture s/p hip replacement Bedbound for several months Possible COPD or respiratory disease (family unsure) Possible history of DM [place] abuse for chronic pain Surgical History: Left hip replacement Medications: [place] (home use per family) Prednisone (prior use per family, unclear duration/dose) Allergies: No known drug allergies Social History: Last alcohol intake Apr 2021, active smoker Lives at home with Denies illicit drug use (per [place] overuse) 09/27/24: ct scan abdomen/chest: Bilateral pulmonary airspace consolidation most pronounced within the left lower lobe, Severe pulmonary emphysematous changes. Right lower lobe nodularity which is likely secondary to underlying infection /pneumonia, Small bilateral pleural effusions, Abdominal aortic aneurysm measuring 5.6 cm in diameter, There is a right common femoral vein central venous catheter with the catheter tip projecting into the region deep pelvis, likely within the right internal iliac vein branch, Gallbladder hyperdensity/ sludge, Small amount of ascites fluid, Large volume stool in the rectum, start feedings, GI consult, ammonia levels were high, lactulose started, leg arterial US showed severe PAD, we will continue treatment but prognosis is poor 09/28/24: over night patient had atrial fibrillation, amiodarone was started per night ceja and cardiology was consulted, cardiology dc amiodarone drip, no need of further rate control since his HR 65, extensive discussion with and son, possible transfer to comfort measures but they want to speak with his other children, patient has DIC, platelets are trending down, anuric, nephrology is consulted, fio2 is lower, levophed 20, versed 0.03, tylenol levels 29, blood culture came positive for providencia alcalifaciens sensitive to meropenem, poison control will contacted due to tylenol toxicity we will continue acetylcysteine IV drip, calcium is low, calcium IV was given Objective vital signs Vital Sign Date Time Temp Pulse Resp B/P (MAP) Pulse Ox O2 Delivery O2 Flow Rate FiO2 09/28/24 14:51 67 22 120/71 (87) 97 30 09/28/24 14:30 96.6 205.9 09/28/24 14:00 Mechanical Ventilator+ 09/28/24 08:00 0 Total Intake and Output 09/27/24 09/27/24 09/28/24 15:00 23:00 07:00 Intake Total 1635.688 ml 1409.000 ml 1668.000 ml Output Total 10 ml 35 ml Balance 1635.688 ml 1399.000 ml 1633.000 ml medications Current Medications Medications Dose Ordered Sig/Hair Route Start Time Stop Time Status Last Admin Dose Admin Midazolam HCl 50 ml @ 1 mls/hr Q24H IV 09/25/24 13:00 09/27/24 20:01 1 MLS/HR Fentanyl Citrate 250 ml @ 2.5 mls/hr Q24H IV 09/25/24 13:00 09/27/24 20:00 7.5 MLS/HR Vasopressin 20 units/Sodium Chloride 100 ml @ 9 mls/hr Q11H7M IV 09/25/24 19:00 09/28/24 07:54 9 MLS/HR Vancomycin HCl 0 ml @ 0 mls/hr UD IV 09/25/24 19:45 Meropenem 50 ml @ 17 mls/hr Q12HR IV 09/26/24 22:00 09/28/24 10:44 17 MLS/HR Pantoprazole Sodium 40 mg DAILY IV 09/26/24 11:00 09/28/24 10:44 40 MG Acetylcysteine 4500 mg/Dextrose 1,022.5 ml @ 62.5 mls/ hr Q16H IV 09/26/24 18:15 09/28/24 02:21 62.5 MLS/HR Norepinephrine Bitartrate 32 mg/ Sodium Chloride 250 ml @ 0.938 mls/ hr Q24H IV 09/26/24 14:30 09/28/24 05:26 9.375 MLS/HR Hydrocortisone Sodium Succinate 50 mg Q12HR IV 09/26/24 22:00 09/28/24 10:44 50 MG Epinephrine HCl 250 ml @ 7.5 mls/hr Q24H IV 09/26/24 17:00 09/26/24 17:21 7.5 MLS/HR Sodium Bicarbonate 150 ml/Dextrose 1,150 ml @ 75 mls/hr [id number] IV 09/27/24 11:30 09/28/24 05:22 75 MLS/HR Enteral Nutritional Formula 1,000 ml 30ML/HR GT 09/27/24 11:30 09/27/24 21:14 1,000 ML Lactulose 30 ml BID PO 09/27/24 22:00 09/28/24 10:45 30 ML Examination General: Cachectic, severely distressed, intubated HEENT: Normal Neck: No JVD CV: Regular rate/rhythm, no murmurs Resp: Intubated, bilateral breath sounds Abdomen: Soft, non-tender, thrill in abdomen, AAA 5.6cm Extremities: No edema, no DVT signs Neuro: GCS not assessable due to sedation; no focal findings Skin: Pale, multiple pressure ulcers in the back, multiple ecchymosis Lines/Devices: Intubated with 7.0 ETT at 23 cm Central line: Right femoral triple lumen Clark catheter in place laboratory and microbiology Laboratory Tests 09/28/24 02:46 Test 09/28/24 02:46 Range/Units Serum Glucose 282 H 74-106 mg/dL Microbiology Date/Time Source Procedure Growth Status 09/27/24 16:44 Voided Urine Urine Culture - Preliminary Resulted 09/27/24 13:10 Blood Blood Culture - Preliminary NO GROWTH AFTER 24 HOURS OF INCUBATION. Resulted 09/26/24 20:08 Nose MRSA Screen - Final Complete 09/25/24 12:40 Sputum Gram Stain - Final Complete 09/25/24 12:40 Sputum Respiratory Culture - Final Complete Problem List/Assessment/Plan Problem List/Assessment/Plan Neurology #Acute Toxic/Metabolic Encephalopathy: Likely multifactorial (shock liver, SANJAY, sepsis, tylenol overdose) #Moderate chronic microvascular ischemic changes. #Mild global cerebral volume loss fentanyl and midazolam RASS-3 ID #Bacteriemia #Pneumonia #UTI meropenem and vancomycin 09/28/24: ct scan abdomen/chest: Bilateral pulmonary airspace consolidation most pronounced within the left lower lobe, Severe pulmonary emphysematous changes. Right lower lobe nodularity which is likely secondary to underlying infection /pneumonia, Small bilateral pleural effusions, Abdominal aortic aneurysm measuring 5.6 cm in diameter, There is a right common femoral vein central venous catheter with the catheter tip projecting into the region deep pelvis, likely within the right internal iliac vein branch, Gallbladder hyperdensity/ sludge, Small amount of ascites fluid, Large volume stool in the rectum, start feedings, GI consult, ammonia levels were high, lactulose started, leg arterial US showed severe PAD, we will continue treatment but prognosis is poor 09/28/24: over night patient had atrial fibrillation, amiodarone was started per night team and cardiology was consulted, cardiology dc amiodarone drip, no need of further rate control since his HR 65, extensive discussion with and son, possible transfer to comfort measures but they want to speak with his other children, patient has DIC, platelets are trending down, anuric, nephrology is consulted, fio2 is lower, levophed 20, versed 0.03, tylenol levels 29, blood culture came positive for providencia alcalifaciens sensitive to meropenem, poison control will contacted due to tylenol toxicity we will continue acetylcysteine IV drip, calcium is low, calcium IV was given blood culture positive for staph coagulase negative and providencia alcalifaciens Cardiology #Multiorgan failure #Septic shock due to bacteremia, UTI, possible pneumonia, multiple pressure wounds, liver failure #NSTEMI type 2 likely due to demand ischemia #New onset atrial fibrillation #Ne onset heart started on IV fluids bicarb drip, norepinephrine, vasopressin and epinephrine hydrocortisone IV echo: LVEF 55-60%, mild LVH Right ventricle mildly dilated, normal function Interatrial septum is aneurysmal negtive bubble study for shunt. Moderate pulmonary hypertension, RVSP 50-65 mmgh no need of rate or rhythm control dc amiodarone drip ns 75cc/h Respiratory #Acute respiratory failure due to septic shock, COPD exacerbation and pneumonia #Respiratory acidosis resolving #Pneumonia gram+/ gram - #COPD exacerbation #Bilateral pleural effusions Intubated for respiratory distress; AC/VC mode. meropenem + vancomycin pending cultures Fio2 trending down high risk of bleeding, no thoracentesis GI #Acute liver failure due to Tylenol toxicity #Shock liver #Severe malnutrition and cachexia #distal AAA #Possible GI bleeding #Severe coagulopathy #Gallbladder hyperdensity/ sludge #Hyperammonemia Started on acetylcysteine protocol Vitamin K GI consult continue feedings hb stable lactulose Metabolic #Hypoglycemia at admission #Severe lactic acidosis #Severe metabolic acidosis #Possible hypothyroidism #Hypocalcemia due to high risk of arrhythmia: no T4 supplementation for now . TSH 7 calcium gluconate given Renal #SANJAY probably due to VMN, worsening due to multiorgan failure #Complicated UTI #Hematuria due to coagulopathy in UA oliguria almost anuria stop bicarb drip 75cc/h ns 75cc/h meropenem + vanc Heme/onc #Leukocytosis with bands #Anemia due to possible chronic disease #Thrombocytopenia #Severe coagulopathy #DIC hb stable, but there is a concern of GI bleeding due to dark NG tube output MSK #Multiple wounds and ecchymosis Patient is on a severe coagulopathic state and severe denutrition: poor prognosis, wound consult: supportive care consult SS and poison control Case discussed with Dr Feldman Time spent of critical care 102 min, excluding procedures, case extensively discussed with the Michelle and son Dinesh, family doesn't want compressions in case of cardiac arrest, but they agree on defibrillation, ACLS medications and mechanical ventilation, overall very poor prognosis, patient is having multiorgan failure with severe coagulopathy, possible transfer to comfort measures during the weekend . Plan discussed with: Spouse, Son My Orders My Orders Orders - IRIS QUIJANO RESIDENT Procedure Category Date Status Time Communication Order ORDERS 09/27/24 Transmitted 16:00 Chest Xray 1 View XY 09/28/24 Resulted 04:00 Abg W/ Co-Ox RT 09/28/24 Logged 04:00 Acetaminophen LAB 09/28/24 In Process 15:00 Fibrinogen LAB 09/28/24 In Process 14:57 Communication Order ORDERS 09/28/24 Transmitted 14:58 Dietary Evaluation Review Comments: Step 1. Tube feeding Vital HP. goal rate @40ml/hr providing 960kcal, 84g protein 803 ml free water; supporting 106% energy needs and 107% protein needs. Step 2. Increase Vital HP to 45ml/hr (94g protein and 1080 kcal, 903ml free water) when pt tolerates the 40ml/hr regimen. 3, Reassess needs and medical feasiblilty of PO feeding when pt is extubated. Expected Outcomes/Goals: support protein and energy needs and maintain current wt. IRIS QUIJANO RESIDENT Sep 28, 2024 15:27
[2024-09-28] MEDS: SODIUM CHLORIDE 0.9% 1,000 ML IV SCH (17:41)
[2024-09-28] MEDS: ACETYLCYSTEINE 200MG/ML IV SOL 5,000 MG in D5W 5% 1,000 ML IV SCH (22:00)
--- NOTE | 2024-09-28 23:52 | DVHINCON2 ---
Date of service: Sep 28, 2024 Referring Physician Justice Reason for Consultation A-fib History of Present Illness This is a 79-year-old cachectic male with a PMH of left hip fracture s/p hip replacement and functional decline who was brought to the ED on 09/25 by EMS. The patient was found unresponsive at home by on 09/25/24. Last known normal was reportedly 0000 the same day. On EMS arrival, he was in severe respiratory distress and required intubation en route with a 7.0 ETT. Upon ED arrival, he was unresponsive and hypotensive; he was started on vasopressors and IV fluids. Initial labs were notable for profound metabolic acidosis, elevated transaminases, acute kidney injury, elevated lactate (7.8), and leukocytosis with bandemia. UA suggestive of UTI. Family reports chronic anorexia and likely [place] overuse for chronic left hip pain. Currently requiring vasopressors and mechanical ventilation in ICU. Cardiology consulted for new onset atrial fibrillation. Allergies: Coded Allergies: NO KNOWN ALLERGIES (Unverified , 07/25/24) Current Medications Current Medications Medications (Trade) Dose Ordered Sig/Hair Route PRN Reason Start Time Stop Time Status Last Admin Lactulose 30 ml BID PO 09/27/24 22:00 09/28/24 10:45 Calcium Gluconate/ Sodium Chloride 50 ml @ 100 mls/hr Q30M IV 09/28/24 05:15 09/28/24 06:14 DC 09/28/24 05:54 Review of Systems Unable to review: Patient is intubated on ventilator. Vital Signs Vital Signs Date Time Temp Pulse Resp B/P (MAP) Pulse Ox O2 Delivery O2 Flow Rate FiO2 09/28/24 14:51 67 22 120/71 (87) 97 30 09/28/24 14:30 96.6 205.9 09/28/24 14:00 Mechanical Ventilator+ 09/28/24 08:00 0 Physical Exam GENERAL: Ill appearing, intubated on ventilator. EYES: PERRL, EOMI. Anicteric. HENT: Moist mucous membranes. LUNGS: Decreased breath sounds. CARDIOVASCULAR: Regular rate and rhythm. ABDOMEN: Soft, nontender and nondistended. EXTREMITIES: No edema. SKIN: Warm, dry. Labs/Diagnostic Data Labs Test 09/28/24 15:06 09/28/24 11:30 09/28/24 09:50 09/28/24 06:41 Range/Units D-Dimer, Quantitative 30.11 H 0.0-0.49 mg/L FEU Prothrombin Time 21.7 H 9.3-11.8 sec Prothrombin Time INR 2.22 H 0.9-1.15 Activated Partial Thromboplast Time 109.1 *H 24.5-34.5 SEC Blood Gas Specimen Type Arterial Blood Gas Sample Site Right radial Blood Gas Patient Temperature 37.0 Arterial Blood Date Drawn [id number] Arterial Blood pH 7.337 L 7.350-7.450 Arterial Blood Partial Pressure CO2 45.9 35.0-48.0 mmHg Arterial Blood Partial Pressure O2 67.1 L 83.0-108.0 mmHg Arterial Blood HCO3 24.0 21.0-28.0 mmol/L Arterial Blood Oxygen Saturation 90.4 L 94.0-98.0 % Arterial Blood Base Excess -1.9 -2.0-3.0 mmol/L Arterial Blood Oxyhemoglobin 89.5 L 94.0-98.0 % Arterial Blood Carboxyhemoglobin 0.7 0.5-1.5 % Arterial Blood Methemoglobin 0.3 0.0-1.5 % Cole Test Modified Blood Gas Total Hemoglobin 10.60 L 13.5-17.5 g/dL Blood Gas Set Respiration Rate 22.0 Blood Gas Modality Vent - ac FiO2 % 30.0 Blood Gas Tidal Volume 450.0 Blood Gas PEEP or CPAP 5.0 Test 09/28/24 02:46 09/27/24 16:44 09/27/24 08:49 09/27/24 03:40 Range/Units White Blood Count 7.2 # 4.4-10.8 10^3/uL Red Blood Count 3.47 L 4.5-5.90 10^6/uL Hemoglobin 9.8 L 13.5-17.5 g/dL Hematocrit 29.7 L 41.0-53.0 % Mean Corpuscular Volume 85.5 80.0-100.0 fL Mean Corpuscular Hemoglobin 28.4 28.0-32.0 pg Mean Corpuscular Hemoglobin Concent 33.2 32.0-36.0 g/dL Red Cell Distribution Width 21.3 H 11.8-14.3 % Platelet Count 75 L 140-450 10^3/uL Mean Platelet Volume 10.3 6.9-10.8 fL Neutrophils (%) (Auto) 37.0-80.0 % Lymphocytes (%) (Auto) 10.0-50.0 % Monocytes (%) (Auto) 0.0-12.0 % Basophils (%) (Auto) 0.0-2.0 % Neutrophils # (Auto) 1.6-8.6 10 ^3/uL Lymphocytes # (Auto) 0.4-5.4 10 ^3/uL Monocytes # (Auto) 0-1.3 10 ^3/uL Differential Total Cells Counted 100.0 100 Neutrophils % (Manual) 84 H 37.0-80.0 Band Neutrophils % (Manual) 1 Lymphocytes % (Manual) 9 L 10.0-50.0 Monocytes % (Manual) 6 0-12 Eosinophils % (Manual) 0 0-7 Basophils % (Manual) 0 0.0-2.0 Metamyelocytes % (manual) 0 Myelocytes % (Manual) 0 Promyelocytes % (Manual) 0 Blast Cells % (Manual) 0 Reactive Lymphocytes 0 Platelet Estimate Decreased Anisocytosis (manual) Slight Sickle Cells Ovalocytes Mode Karma Cells Moderate Schistocytes Few Sodium Level 136 136-145 mmol/L Potassium Level 3.8 3.5-5.1 mmol/L Chloride Level 97 L 98-107 mmol/L Carbon Dioxide Level 24 20-31 mmol/L Anion Gap 15 5-15 Blood Urea Nitrogen 50 H 9-23 mg/dL Creatinine 1.99 H 0.700-1.30 mg/dL Glomerular Filtration Rate Calc 34 >90 mL/min BUN/Creatinine Ratio 25.1 H 10.0-20.0 Serum Glucose 282 H 74-106 mg/dL Magnesium Level 1.8 1.6-2.6 mg/dL Total Bilirubin 2.2 H 0.2-1.0 mg/dL Aspartate Amino Transferase (AST) 2499 H 13-40 U/L Alanine Aminotransferase (ALT) 770 H 7-40 U/L Alkaline Phosphatase 276 H 46-116 U/L Ammonia 60 H 11-32 umol/L Total Protein 3.5 L 5.7-8.2 g/dL Albumin 1.7 L 3.2-4.8 g/dL Random Vancomycin Level 18.3 H 5-10 ug/mL Urine Color [place] H Yellow Urine Clarity Turbid H Clear Urine pH 5.5 5.0-9.0 Urine Specific [place] 1.017 1.001-1.035 Urine Protein 2+ H Negative Urine Ketones 1+ H Negative Urine Blood 2+ H Negative /uL Urine Nitrite Negative Negative Urine Bilirubin Negative Negative Urine Urobilinogen Normal Negative mg/dL Urine Leukocyte Esterase 3+ Negative /uL Urine RBC 24 0 - 3 /hpf Urine Microscopic WBC 39 H 0-3 /HPF Urine Squamous Epithelial Cells Few <5 /hpf Urine Bacteria Few H None Seen /hpf Urine Mucus Few None Seen Urine Glucose 2+ H Normal mg/dL Lactic Acid Level 6.6 *H 0.4-2.0 mmol/L Eosinophils (%) (Auto) 3.2 0.0-7.0 % Eosinophils # (Auto) 0.4 0-0.8 10 ^3/uL Basophils # (Auto) 0 0-0.2 10 ^3/uL Nucleated Red Blood Cells 0.5 % Phosphorus Level 8.5 H 2.4-5.1 mg/dL Test 09/26/24 14:11 09/26/24 11:08 09/26/24 03:38 09/26/24 03:37 Range/Units Blood Gas Critical Value Read Back Yes Blood Gas Notified Whom nura Torrez Blood Gas Notified Time [id number] Blood Gas Notified By Customer Account Technician sharad puente Plasma/Serum Blood Alcohol < 3.0 <10 mg/dL Hepatitis A IgM Antibody Negative Hepatitis B Surface Antigen Negative Negative Hepatitis B Core IgM Antibody Negative Negative Hepatitis C Antibody Negative Negative Large Platelets Few Poikilocytosis (manual) Slight Hemoglobin A1c 5.5 <5.7 % A1C Thyroid Stimulating Hormone (TSH) 7.16 H 0.55-4.78 uIU/mL Gamma Glutamyl Transpeptidase 30 <73 U/L Test 09/25/24 22:30 09/25/24 19:45 09/25/24 18:38 09/25/24 15:56 Range/Units Creatine Kinase 226 H 46-171 U/L Blood Gas Comments 1st paged 1999 POC Glucose 101 70-106 mg/dl Troponin I High Sensitivity 133 *H </=54 ng/L Test 09/25/24 13:04 Range/Units B-Type Natriuretic Peptide 199.19 0-100 pg/mL Microbiology Date/Time Source Procedure Growth Status 09/27/24 16:44 Voided Urine Urine Culture - Preliminary Resulted 09/27/24 13:10 Blood Blood Culture - Preliminary NO GROWTH AFTER 24 HOURS OF INCUBATION. Resulted 09/26/24 20:08 Nose MRSA Screen - Final Complete 09/25/24 12:40 Sputum Gram Stain - Final Complete 09/25/24 12:40 Sputum Respiratory Culture - Final Complete Assessment Acute Toxic/Metabolic Encephalopathy likely due to sepsis/Tylenol toxicity. Septic shock with multiple organ failure. Sepsis due to pneumonia/UTI. NSTEMI type 2 likely due to above. New onset atrial fibrillation, likely due to electrolyte imbalance/sepsis. Distal AAA. DIC with acquired coagulopathy. Hypocalcemia. SANJAY probably due to VMN, worsening due to multiorgan failure. Hematuria due to coagulopathy in UA. Plan/Recommendation I agree with your ongoing assessment and care of plan. Patient has been seen by Erika Gill Resident on my behalf, we have discussed the plan with the patient. Digoxin for rate control for atrial fibrillation. Discontinue amiodarone drip. Replete magnesium. Rest of the per primary team. Severely ill patient, poor prognosis. Additional plan as per the hospital course. Critical care time of 90 minutes provided to include time spent evaluation of patient at bedside, when appropriate patient/family education for diagnosis, treatment plan, review of pertinent medical information and discussion of care with specialty providers and PCP. Mechanical ventilator parameters, treatment and adjustments have personally been reviewed by me and treatment plan by pulmo nologist has also been reviewed. Plan discussed with: Other ROSE CHEEK MD Sep 28, 2024 15:41
[2024-09-29] VITALS (108 sets, daily range): BP systolic 94–133; BP diastolic 60–85; PULSE 64–89; RESP 21–22; TEMP 94.8–98.8; O2SAT 90–99
[2024-09-29 03:40] LABS: Hematocrit 28.2 % (41.0-53.0); Hemoglobin 9.7 g/dL (13.5-17.5); Mean Corpuscular Hemoglobin 28.7 pg (28.0-32.0); Mean Corpuscular Volume 83.5 fL (80.0-100.0)
[2024-09-29 03:52] LABS: Anion Gap 14 (5-15); BUN/Creatinine Ratio 27.4 (10.0-20.0); Carbon Dioxide 25 mmol/L (20-31)
[2024-09-29 03:56] LABS: INR 1.82 (0.9-1.15); Prothrombin Time 18.2 sec (9.3-11.8)
[2024-09-29 03:58] LABS: Alanine Aminotransferase 500 U/L (7-40); Albumin 1.6 g/dL (3.2-4.8); Alkaline Phosphatase 295 U/L (46-116); Bilirubin, Total 2.4 mg/dL (0.2-1.0); Blood Urea Nitrogen 55 mg/dL (9-23); Calcium 6.2 mg/dL (8.7-10.4); Chloride 94 mmol/L (98-107); Glucose 140 mg/dL (74-106); Potassium 3.5 mmol/L (3.5-5.1); Sodium 133 mmol/L (136-145); Total Protein 3.3 g/dL (5.7-8.2)
[2024-09-29 04:02] LABS: Partial Thromboplastin Time 103.2 SEC (24.5-34.5)
[2024-09-29 04:38] LABS: Nucleated Red Blood Cells % 1.0 %; Total Cells Counted 100.0 (100)
[2024-09-29 04:39] LABS: Anisocytosis Slight; Ovalocytes MODE
--- NOTE | 2024-09-29 06:24 | DVH ---
CHEST RADIOGRAPH Indication: pneumonia Technique: Single frontal view of the chest was obtained COMPARISON: XY CHEST XRAY 1 VIEW on DOS: 09/28/24, XY CHEST XRAY 1 VIEW on DOS: 09/27/24, XY CHEST XRAY 1 VIEW on DOS: 09/25/24, XY CHEST PORTABLE on DOS: 09/25/24 FINDINGS: Lines and Tubes: Endotracheal tube, enteric catheter in satisfactory position. Lungs: Mild focal airspace disease. Pleura: No effusion. No pneumothorax. Cardiomediastinal contours: Unremarkable Bones: Unremarkable IMPRESSION: Lines and tubes in satisfactory position. No significant interval change.
[2024-09-29 08:36] LABS: Base Excess -4.1 mmol/L (-2.0-3.0)
--- NOTE | 2024-09-29 11:00 | DVHPN2 ---
Consult Progress Note Date Seen: Sep 29, 2024 Subjective Other Systems: No overnight cardiac events Objective vital signs Vital Sign Date Time Temp Pulse Resp B/P (MAP) Pulse Ox O2 Delivery O2 Flow Rate FiO2 09/29/24 10:00 68 22 105/69 (81) 95 30 09/29/24 06:00 Mechanical Ventilator+ 09/29/24 04:00 97.5 97.5 09/28/24 08:00 0 Total Intake and Output 09/28/24 09/28/24 09/29/24 15:00 23:00 07:00 Intake Total 1590.640 ml 1107.500 ml 1244.623 ml Output Total 90 ml Balance 1590.640 ml 1107.500 ml 1154.623 ml medications Current Medications Medications Dose Ordered Sig/Hair Route Start Time Stop Time Status Last Admin Dose Admin Midazolam HCl 50 ml @ 1 mls/hr Q24H IV 09/25/24 13:00 09/28/24 22:20 1 MLS/HR Fentanyl Citrate 250 ml @ 2.5 mls/hr Q24H IV 09/25/24 13:00 09/29/24 00:47 7.5 MLS/HR Vasopressin 20 units/Sodium Chloride 100 ml @ 9 mls/hr Q11H7M IV 09/25/24 19:00 09/29/24 05:30 9 MLS/HR Vancomycin HCl 0 ml @ 0 mls/hr UD IV 09/25/24 19:45 Meropenem 50 ml @ 17 mls/hr Q12HR IV 09/26/24 22:00 09/28/24 21:38 17 MLS/HR Pantoprazole Sodium 40 mg DAILY IV 09/26/24 11:00 09/28/24 10:44 40 MG Norepinephrine Bitartrate 32 mg/ Sodium Chloride 250 ml @ 0.938 mls/ hr Q24H IV 09/26/24 14:30 09/29/24 07:00 8.438 MLS/HR Hydrocortisone Sodium Succinate 50 mg Q12HR IV 09/26/24 22:00 09/28/24 21:37 50 MG Epinephrine HCl 250 ml @ 7.5 mls/hr Q24H IV 09/26/24 17:00 09/26/24 17:21 7.5 MLS/HR Enteral Nutritional Formula 1,000 ml 30ML/HR GT 09/27/24 11:30 09/27/24 21:14 1,000 ML Lactulose 30 ml BID PO 09/27/24 22:00 09/28/24 21:37 30 ML Sodium Chloride 1,000 ml @ 75 mls/hr [id number] IV 09/28/24 15:30 09/29/24 05:00 75 MLS/HR Acetylcysteine 5000 mg/Dextrose 1,025 ml @ 62.5 mls/hr Q16H IV 09/28/24 21:15 09/28/24 22:00 62.5 MLS/HR Examination: LUNGS:Abnormal (Endotracheally intubated 30% FiO2), CVS:Normal (A- fib controlled rate 70s bpm. On multiple vasopressors), NEURO:Abnormal (Chemically sedated) laboratory and microbiology Laboratory Tests 09/29/24 02:50 Test 09/29/24 02:50 Range/Units Serum Glucose 140 #H 74-106 mg/dL Problem List/Assessment/Plan Problem List/Assessment/Plan Septic shock with PNA/UTI and multiple organ failure Acute Toxic/Metabolic Encephalopathy likely due to sepsis/Tylenol toxicity NSTEMI type 2 likely due to above New onset atrial fibrillation, likely due to electrolyte imbalance/sepsis Distal AAA DIC with acquired coagulopathy Hypocalcemia SANJAY probably due to VMN, worsening due to multiorgan failure Hematuria due to coagulopathy in UA * EKGs shows atrial fibrillation with heart rate 70s * Trop I is mildly raised * Echocardiogram shows, LVEF 55-60%, RVSP 50-65% Plan/recommendation (Dr. Rivero) * Digoxin for rate control for atrial fibrillation * Discontinue amiodarone drip * Replete electrolytes as necessary, K>4 and Mg>2 * Anticoagulation held given severe thrombocytopenia * At high risk for acute CVA * Rest of the per primary team * Severely ill patient, poor prognosis. Consider goals of care Critical/grave prognosis. Consider goals of care. Kindly call Cardiology team as needed basis. Thank you for giving us the opportunity to care of your patient. Critical care time: 30 min. This medical document was created using an electronic medical record system with voice recognition software and computerized dictation system. Although this document has been carefully reviewed, there might still be some phonetic and typographical errors. Occasional wrong-word or ``sound-alike substitutions may have occurred due to the inherent limitations of voice recognition software. These areas are purely typographical due to imperfections of the software programs and do not reflect any compromise in the patient's medical care. Please read the chart carefully and recognize, using context, where these substitutions have occurred. Plan discussed with: Other Dietary Evaluation Review Comments: Step 1. Tube feeding Vital HP. goal rate @40ml/hr providing 960kcal, 84g protein 803 ml free water; supporting 106% energy needs and 107% protein needs. Step 2. Increase Vital HP to 45ml/hr (94g protein and 1080 kcal, 903ml free water) when pt tolerates the 40ml/hr regimen. 3, Reassess needs and medical feasiblilty of PO feeding when pt is extubated. Expected Outcomes/Goals: support protein and energy needs and maintain current wt. Date of Service: Sep 29, 2024 Billing Provider: TORREY DODD Cardiology Common Codes: 95812-[id number] CARE 30-74 MIN TORREY DODD Sep 29, 2024 11:00
--- NOTE | 2024-09-29 13:00 | DVHINCON2 ---
Date of service: Sep 29, 2024 Reason for Consultation Acute kidney History of Present Illness 79-year-old male admitted to the hospital found by family unresponsive. Patient was brought to the hospital and critically ill state intubated for altered mental state and acute respiratory failure. His laboratory tests were notable for severe sediment Minocin level. Patient's hospital course notable for ICU stay shock requiring pressors severe acidosis fulminant liver failure. Nephrology consulted for worsening renal function Past Medical History COPD AAA bedbound hip fracture Allergies: Coded Allergies: NO KNOWN ALLERGIES (Unverified , 07/25/24) Current Medications Current Medications Medications (Trade) Dose Ordered Sig/Hair Route PRN Reason Start Time Stop Time Status Last Admin Sodium Chloride 1,000 ml @ 75 mls/hr [id number] IV 09/28/24 15:30 09/29/24 05:00 Acetylcysteine 5000 mg/Dextrose 1,025 ml @ 62.5 mls/hr Q16H IV 09/28/24 21:15 09/29/24 10:58 Albumin Human 50 ml @ 100 mls/hr Q8H IV 09/29/24 12:15 09/30/24 04:44 Meropenem 50 ml @ 17 mls/hr Q12HR IV 09/29/24 22:00 H&P Exam Vital Signs/I&O Vital Sign Date Time Temp Pulse Resp B/P (MAP) Pulse Ox O2 Delivery O2 Flow Rate FiO2 09/29/24 12:31 73 22 110/72 (85) 95 30 09/29/24 06:00 Mechanical Ventilator+ 09/29/24 04:00 97.5 97.5 09/28/24 08:00 0 Intake and Output 09/28/24 09/29/24 19:00 07:00 Intake Total 2078.140 ml 1864.623 ml Output Total 90 ml Balance 2078.140 ml 1774.623 ml Intake Oral 50 ml IV Total 2078.140 ml 1704.623 ml Tube Feeding 110 ml Output Urine Total 90 ml # Bowel Movements 1 Physical Exam Frail ill-appearing elderly male Intubated Sedated Mildly jaundice with scleral icterus Clark catheter Bilateral edema Labs/Diagnostic Data Labs/Diagnostic Data Laboratory Tests Test 09/29/24 08:29 09/29/24 02:50 09/28/24 15:06 09/28/24 11:30 Range/Units Blood Gas Specimen Type Arterial Blood Gas Sample Site Left radial Blood Gas Patient Temperature 37.0 Arterial Blood Date Drawn [id number] Arterial Blood pH 7.331 L 7.350-7.450 Arterial Blood Partial Pressure CO2 41.8 35.0-48.0 mmHg Arterial Blood Partial Pressure O2 72.8 L 83.0-108.0 mmHg Arterial Blood HCO3 21.6 21.0-28.0 mmol/L Arterial Blood Oxygen Saturation 91.9 L 94.0-98.0 % Arterial Blood Base Excess -4.1 L -2.0-3.0 mmol/L Arterial Blood Oxyhemoglobin 90.7 L 94.0-98.0 % Arterial Blood Carboxyhemoglobin 1.2 0.5-1.5 % Arterial Blood Methemoglobin 0.1 0.0-1.5 % Cole Test Modified Blood Gas Total Hemoglobin 12.20 L 13.5-17.5 g/dL Blood Gas Set Respiration Rate 22.0 Blood Gas Modality Vent - ac Blood Gas Spontaneous Rate 22 FiO2 % 30.0 Blood Gas Tidal Volume 450.0 Blood Gas PEEP or CPAP 5.0 White Blood Count 8.3 4.4-10.8 10^3/uL Red Blood Count 3.38 L 4.5-5.90 10^6/uL Hemoglobin 9.7 L 13.5-17.5 g/dL Hematocrit 28.2 L 41.0-53.0 % Mean Corpuscular Volume 83.5 80.0-100.0 fL Mean Corpuscular Hemoglobin 28.7 28.0-32.0 pg Mean Corpuscular Hemoglobin Concent 34.4 32.0-36.0 g/dL Red Cell Distribution Width 21.2 H 11.8-14.3 % Platelet Count 45 L 140-450 10^3/uL Mean Platelet Volume 8.8 6.9-10.8 fL Neutrophils (%) (Auto) 37.0-80.0 % Lymphocytes (%) (Auto) 10.0-50.0 % Monocytes (%) (Auto) 0.0-12.0 % Basophils (%) (Auto) 0.0-2.0 % Neutrophils # (Auto) 1.6-8.6 10 ^3/uL Lymphocytes # (Auto) 0.4-5.4 10 ^3/uL Monocytes # (Auto) 0-1.3 10 ^3/uL Differential Total Cells Counted 100.0 100 Neutrophils % (Manual) 83 H 37.0-80.0 Band Neutrophils % (Manual) 3 Lymphocytes % (Manual) 10 10.0-50.0 Monocytes % (Manual) 4 0-12 Eosinophils % (Manual) 0 0-7 Basophils % (Manual) 0 0.0-2.0 Metamyelocytes % (manual) 0 Myelocytes % (Manual) 0 Promyelocytes % (Manual) 0 Blast Cells % (Manual) 0 Nucleated Red Blood Cells 1.0 % Reactive Lymphocytes 0 Platelet Estimate Decrea Large Platelets Few Poikilocytosis (manual) Slight Anisocytosis (manual) Slight Ovalocytes Mode [place] Cells Moderate Schistocytes Few Prothrombin Time 18.2 H 9.3-11.8 sec Prothrombin Time INR 1.82 H 0.9-1.15 Activated Partial Thromboplast Time 103.2 *H 24.5-34.5 SEC Sodium Level 133 L 136-145 mmol/L Potassium Level 3.5 3.5-5.1 mmol/L Chloride Level 94 L 98-107 mmol/L Carbon Dioxide Level 25 20-31 mmol/L Anion Gap 14 5-15 Blood Urea Nitrogen 55 H 9-23 mg/dL Creatinine 2.01 H 0.700-1.30 mg/dL Glomerular Filtration Rate Calc 33 >90 mL/min BUN/Creatinine Ratio 27.4 H 10.0-20.0 Serum Glucose 140 #H 74-106 mg/dL Calcium Level 6.2 L 6.1 L 8.7-10.4 mg/dL Total Bilirubin 2.4 H 0.2-1.0 mg/dL Aspartate Amino Transferase (AST) 953 H 13-40 U/L Alanine Aminotransferase (ALT) 500 H 7-40 U/L Alkaline Phosphatase 295 H 46-116 U/L Total Protein 3.3 L 5.7-8.2 g/dL Albumin 1.6 L 3.2-4.8 g/dL Random Vancomycin Level 14.7 H 5-10 ug/mL Fibrinogen 186 177-375 mg/dL Salicylates Level < 3.0 -30 mg/dL Acetaminophen Level 21.0 H 10.0-20.0 UG/ML D-Dimer, Quantitative 30.11 H 0.0-0.49 mg/L FEU Test 09/28/24 09:50 09/28/24 06:41 09/28/24 02:46 09/27/24 16:44 Range/Units Prothrombin Time 21.7 H 9.3-11.8 sec Prothrombin Time INR 2.22 H 0.9-1.15 Activated Partial Thromboplast Time 109.1 *H 24.5-34.5 SEC Blood Gas Specimen Type Arterial Blood Gas Sample Site Right radial Blood Gas Patient Temperature 37.0 Arterial Blood Date Drawn [id number] Arterial Blood pH 7.337 L 7.350-7.450 Arterial Blood Partial Pressure CO2 45.9 35.0-48.0 mmHg Arterial Blood Partial Pressure O2 67.1 L 83.0-108.0 mmHg Arterial Blood HCO3 24.0 21.0-28.0 mmol/L Arterial Blood Oxygen Saturation 90.4 L 94.0-98.0 % Arterial Blood Base Excess -1.9 -2.0-3.0 mmol/L Arterial Blood Oxyhemoglobin 89.5 L 94.0-98.0 % Arterial Blood Carboxyhemoglobin 0.7 0.5-1.5 % Arterial Blood Methemoglobin 0.3 0.0-1.5 % Cole Test Modified Blood Gas Total Hemoglobin 10.60 L 13.5-17.5 g/dL Blood Gas Set Respiration Rate 22.0 Blood Gas Modality Vent - ac FiO2 % 30.0 Blood Gas Tidal Volume 450.0 Blood Gas PEEP or CPAP 5.0 White Blood Count 7.2 # 4.4-10.8 10^3/uL Red Blood Count 3.47 L 4.5-5.90 10^6/uL Hemoglobin 9.8 L 13.5-17.5 g/dL Hematocrit 29.7 L 41.0-53.0 % Mean Corpuscular Volume 85.5 80.0-100.0 fL Mean Corpuscular Hemoglobin 28.4 28.0-32.0 pg Mean Corpuscular Hemoglobin Concent 33.2 32.0-36.0 g/dL Red Cell Distribution Width 21.3 H 11.8-14.3 % Platelet Count 75 L 140-450 10^3/uL Mean Platelet Volume 10.3 6.9-10.8 fL Neutrophils (%) (Auto) 37.0-80.0 % Lymphocytes (%) (Auto) 10.0-50.0 % Monocytes (%) (Auto) 0.0-12.0 % Basophils (%) (Auto) 0.0-2.0 % Neutrophils # (Auto) 1.6-8.6 10 ^3/uL Lymphocytes # (Auto) 0.4-5.4 10 ^3/uL Monocytes # (Auto) 0-1.3 10 ^3/uL Differential Total Cells Counted 100.0 100 Neutrophils % (Manual) 84 H 37.0-80.0 Band Neutrophils % (Manual) 1 Lymphocytes % (Manual) 9 L 10.0-50.0 Monocytes % (Manual) 6 0-12 Eosinophils % (Manual) 0 0-7 Basophils % (Manual) 0 0.0-2.0 Metamyelocytes % (manual) 0 Myelocytes % (Manual) 0 Promyelocytes % (Manual) 0 Blast Cells % (Manual) 0 Reactive Lymphocytes 0 Platelet Estimate Decreased Anisocytosis (manual) Slight Sickle Cells Ovalocytes Mode [place] Cells Moderate Schistocytes Few Sodium Level 136 136-145 mmol/L Potassium Level 3.8 3.5-5.1 mmol/L Chloride Level 97 L 98-107 mmol/L Carbon Dioxide Level 24 20-31 mmol/L Anion Gap 15 5-15 Blood Urea Nitrogen 50 H 9-23 mg/dL Creatinine 1.99 H 0.700-1.30 mg/dL Glomerular Filtration Rate Calc 34 >90 mL/min BUN/Creatinine Ratio 25.1 H 10.0-20.0 Serum Glucose 282 H 74-106 mg/dL Calcium Level 5.4 *L 8.7-10.4 mg/dL Magnesium Level 1.8 1.6-2.6 mg/dL Total Bilirubin 2.2 H 0.2-1.0 mg/dL Aspartate Amino Transferase (AST) 2499 H 13-40 U/L Alanine Aminotransferase (ALT) 770 H 7-40 U/L Alkaline Phosphatase 276 H 46-116 U/L Ammonia 60 H 11-32 umol/L Total Protein 3.5 L 5.7-8.2 g/dL Albumin 1.7 L 3.2-4.8 g/dL Random Vancomycin Level 18.3 H 5-10 ug/mL Acetaminophen Level 29.0 H 10.0-20.0 UG/ML Urine Color [place] H Yellow Urine Clarity Turbid H Clear Urine pH 5.5 5.0-9.0 Urine Specific [place] 1.017 1.001-1.035 Urine Protein 2+ H Negative Urine Ketones 1+ H Negative Urine Blood 2+ H Negative /uL Urine Nitrite Negative Negative Urine Bilirubin Negative Negative Urine Urobilinogen Normal Negative mg/dL Urine Leukocyte Esterase 3+ Negative /uL Urine RBC 24 0 - 3 /hpf Urine Microscopic WBC 39 H 0-3 /HPF Urine Squamous Epithelial Cells Few <5 /hpf Urine Bacteria Few H None Seen /hpf Urine Mucus Few None Seen Urine Glucose 2+ H Normal mg/dL Test 09/27/24 13:10 09/27/24 08:49 09/27/24 06:35 09/27/24 03:40 Range/Units Ammonia 56 H 11-32 umol/L Lactic Acid Level 6.6 *H 7.3 *H 0.4-2.0 mmol/L Blood Gas Specimen Type Arterial Blood Gas Sample Site Left radial Blood Gas Patient Temperature 37.0 Arterial Blood Date Drawn [id number] Arterial Blood pH 7.255 L 7.350-7.450 Arterial Blood Partial Pressure CO2 34.1 L 35.0-48.0 mmHg Arterial Blood Partial Pressure O2 165.2 H 83.0-108.0 mmHg Arterial Blood HCO3 14.8 L 21.0-28.0 mmol/L Arterial Blood Oxygen Saturation 99.1 H 94.0-98.0 % Arterial Blood Base Excess -11.3 L -2.0-3.0 mmol/L Arterial Blood Oxyhemoglobin 98.3 H 94.0-98.0 % Arterial Blood Carboxyhemoglobin 0.7 0.5-1.5 % Arterial Blood Methemoglobin 0.1 0.0-1.5 % Cole Test Modified Blood Gas Total Hemoglobin 11.00 L 13.5-17.5 g/dL Blood Gas Set Respiration Rate 22.0 Blood Gas Modality Vent - ac FiO2 % 80.0 Blood Gas Tidal Volume 450.0 Blood Gas PEEP or CPAP 5.0 White Blood Count 13.2 #H 4.4-10.8 10^3/uL Red Blood Count 3.70 L 4.5-5.90 10^6/uL Hemoglobin 10.3 L 13.5-17.5 g/dL Hematocrit 32.8 L 41.0-53.0 % Mean Corpuscular Volume 88.8 80.0-100.0 fL Mean Corpuscular Hemoglobin 27.9 L 28.0-32.0 pg Mean Corpuscular Hemoglobin Concent 31.4 L 32.0-36.0 g/dL Red Cell Distribution Width 21.3 H 11.8-14.3 % Platelet Count 97 L 140-450 10^3/uL Mean Platelet Volume 10.9 H 6.9-10.8 fL Neutrophils (%) (Auto) 87.2 H 37.0-80.0 % Lymphocytes (%) (Auto) 7.9 L 10.0-50.0 % Monocytes (%) (Auto) 1.5 0.0-12.0 % Eosinophils (%) (Auto) 3.2 0.0-7.0 % Basophils (%) (Auto) 0.2 0.0-2.0 % Neutrophils # (Auto) 11.6 H 1.6-8.6 10 ^3/uL Lymphocytes # (Auto) 1.0 0.4-5.4 10 ^3/uL Monocytes # (Auto) 0.2 0-1.3 10 ^3/uL Eosinophils # (Auto) 0.4 0-0.8 10 ^3/uL Basophils # (Auto) 0 0-0.2 10 ^3/uL Nucleated Red Blood Cells 0.5 % Prothrombin Time 35.7 H 9.3-11.8 sec Prothrombin Time INR 3.85 H 0.9-1.15 Activated Partial Thromboplast Time 92.5 *H 24.5-34.5 SEC Sodium Level 139 136-145 mmol/L Potassium Level 4.7 3.5-5.1 mmol/L Chloride Level 104 98-107 mmol/L Carbon Dioxide Level 17 L 20-31 mmol/L Anion Gap 18 H 5-15 Blood Urea Nitrogen 45 H 9-23 mg/dL Creatinine 1.70 H 0.700-1.30 mg/dL Glomerular Filtration Rate Calc 41 >90 mL/min BUN/Creatinine Ratio 26.5 H 10.0-20.0 Serum Glucose 290 #H 74-106 mg/dL Calcium Level 5.9 *L 8.7-10.4 mg/dL Phosphorus Level 8.5 H 2.4-5.1 mg/dL Magnesium Level 1.9 1.6-2.6 mg/dL Total Bilirubin 2.1 H 0.2-1.0 mg/dL Aspartate Amino Transferase (AST) 4803 H 13-40 U/L Alanine Aminotransferase (ALT) 1196 H 7-40 U/L Alkaline Phosphatase 244 H 46-116 U/L Total Protein 3.7 L 5.7-8.2 g/dL Albumin 1.9 L 3.2-4.8 g/dL Random Vancomycin Level 12.3 H 5-10 ug/mL Acetaminophen Level 50.0 *H 10.0-20.0 UG/ML Test 09/26/24 14:11 09/26/24 12:07 09/26/24 11:08 09/26/24 06:54 Range/Units Blood Gas Specimen Type Arterial Arterial Blood Gas Sample Site Right radial Right radial Blood Gas Patient Temperature 37.0 37.0 Arterial Blood Date Drawn [id number] Arterial Blood pH 7.105 *L 7.204 *L 7.350-7.450 Arterial Blood Partial Pressure CO2 46.4 48.3 H 35.0-48.0 mmHg Arterial Blood Partial Pressure O2 89.4 96.7 83.0-108.0 mmHg Arterial Blood HCO3 14.2 L 18.6 L 21.0-28.0 mmol/L Arterial Blood Oxygen Saturation 93.6 L 95.9 94.0-98.0 % Arterial Blood Base Excess -14.9 L -9.1 L -2.0-3.0 mmol/L Arterial Blood Oxyhemoglobin 92.9 L 95.4 94.0-98.0 % Arterial Blood Carboxyhemoglobin 0.6 0.5 0.5-1.5 % Arterial Blood Methemoglobin 0.2 0.0 0.0-1.5 % Cole Test Modified Modified Blood Gas Total Hemoglobin 12.00 L 11.20 L 13.5-17.5 g/dL Blood Gas Set Respiration Rate 18.0 18.0 Blood Gas Modality Vent - ac Vent - ac FiO2 % 45.0 60.0 Blood Gas Tidal Volume 450.0 450.0 Blood Gas PEEP or CPAP 5.0 5.0 Blood Gas Critical Value Read Back Yes Yes Blood Gas Notified Whom nura Torrez Md. Blood Gas Notified Time [id number] Blood Gas Notified By Telephone Information Clerk sharad puente Telephone Information Clerk sharad puente Prothrombin Time 23.4 H 9.3-11.8 sec Prothrombin Time INR 2.41 H 0.9-1.15 Activated Partial Thromboplast Time 72.6 *H 24.5-34.5 SEC Acetaminophen Level 74.0 *H 10.0-20.0 UG/ML Plasma/Serum Blood Alcohol < 3.0 <10 mg/dL Hepatitis A IgM Antibody Negative Hepatitis B Surface Antigen Negative Negative Hepatitis B Core IgM Antibody Negative Negative Hepatitis C Antibody Negative Negative Test 09/26/24 03:38 09/26/24 03:37 09/25/24 22:42 09/25/24 22:30 Range/Units White Blood Count 21.4 #H 4.4-10.8 10^3/uL Red Blood Count 3.84 L 4.5-5.90 10^6/uL Hemoglobin 11.0 L 13.5-17.5 g/dL Hematocrit 33.7 L 41.0-53.0 % Mean Corpuscular Volume 87.8 80.0-100.0 fL Mean Corpuscular Hemoglobin 28.6 28.0-32.0 pg Mean Corpuscular Hemoglobin Concent 32.6 32.0-36.0 g/dL Red Cell Distribution Width 21.0 H 11.8-14.3 % Platelet Count 107 L 140-450 10^3/uL Mean Platelet Volume 10.8 6.9-10.8 fL Neutrophils (%) (Auto) 37.0-80.0 % Lymphocytes (%) (Auto) 10.0-50.0 % Monocytes (%) (Auto) 0.0-12.0 % Basophils (%) (Auto) 0.0-2.0 % Neutrophils # (Auto) 1.6-8.6 10 ^3/uL Lymphocytes # (Auto) 0.4-5.4 10 ^3/uL Monocytes # (Auto) 0-1.3 10 ^3/uL Differential Total Cells Counted 100.0 100 Neutrophils % (Manual) 63 37.0-80.0 Band Neutrophils % (Manual) 25 Lymphocytes % (Manual) 10 10.0-50.0 Monocytes % (Manual) 2 0-12 Eosinophils % (Manual) 0 0-7 Basophils % (Manual) 0 0.0-2.0 Metamyelocytes % (manual) 0 Myelocytes % (Manual) 0 Promyelocytes % (Manual) 0 Blast Cells % (Manual) 0 Reactive Lymphocytes 0 Platelet Estimate Decreased Large Platelets Few Poikilocytosis (manual) Slight Anisocytosis (manual) Slight Ovalocytes Moderate [place] Cells Few Schistocytes Few Sodium Level 143 143 # 136-145 mmol/L Potassium Level 4.8 4.5 3.5-5.1 mmol/L Chloride Level 108 H 108 H 98-107 mmol/L Carbon Dioxide Level 22 23 20-31 mmol/L Anion Gap 13 12 5-15 Blood Urea Nitrogen 40 H 38 H 9-23 mg/dL Creatinine 1.33 H 1.22 0.700-1.30 mg/dL Glomerular Filtration Rate Calc 55 61 >90 mL/min BUN/Creatinine Ratio 30.1 H 31.1 H 10.0-20.0 Serum Glucose 106 110 H 74-106 mg/dL Hemoglobin A1c 5.5 <5.7 % A1C Calcium Level 6.3 L 6.7 L 8.7-10.4 mg/dL Total Bilirubin 1.9 H 1.9 H 0.2-1.0 mg/dL Aspartate Amino Transferase (AST) > 6000 H 13-40 U/L Alanine Aminotransferase (ALT) 1460 H 1500 H 7-40 U/L Alkaline Phosphatase 212 H 204 H 46-116 U/L Total Protein 4.4 L 4.6 L 5.7-8.2 g/dL Albumin 2.2 L 2.4 L 3.2-4.8 g/dL Thyroid Stimulating Hormone (TSH) 7.16 H 0.55-4.78 uIU/mL Random Vancomycin Level 13.0 H 5-10 ug/mL Gamma Glutamyl Transpeptidase 30 <73 U/L Blood Gas Specimen Type Arterial Blood Gas Sample Site Right radial Blood Gas Patient Temperature 37.0 Arterial Blood Date Drawn [id number] Arterial Blood pH 7.274 L 7.350-7.450 Arterial Blood Partial Pressure CO2 46.1 35.0-48.0 mmHg Arterial Blood Partial Pressure O2 78.2 L 83.0-108.0 mmHg Arterial Blood HCO3 20.9 L 21.0-28.0 mmol/L Arterial Blood Oxygen Saturation 94.2 94.0-98.0 % Arterial Blood Base Excess -5.9 L -2.0-3.0 mmol/L Arterial Blood Oxyhemoglobin 93.2 L 94.0-98.0 % Arterial Blood Carboxyhemoglobin 0.8 0.5-1.5 % Arterial Blood Methemoglobin 0.3 0.0-1.5 % Cole Test N/a Blood Gas Total Hemoglobin 12.00 L 13.5-17.5 g/dL Blood Gas Set Respiration Rate 18.0 Blood Gas Modality Vent - ac FiO2 % 60.0 Blood Gas Tidal Volume 450.0 Blood Gas PEEP or CPAP 5.0 Blood Gas Notified By Telephone Information Clerk shreya salgado Creatine Kinase 226 H 46-171 U/L Test 09/25/24 19:45 09/25/24 18:38 09/25/24 16:56 09/25/24 15:56 Range/Units Blood Gas Specimen Type Arterial Blood Gas Sample Site Left radial Blood Gas Patient Temperature 37.0 Arterial Blood Date Drawn [id number] Arterial Blood pH 7.152 *L 7.350-7.450 Arterial Blood Partial Pressure CO2 67.0 *H 35.0-48.0 mmHg Arterial Blood Partial Pressure O2 79.3 L 83.0-108.0 mmHg Arterial Blood HCO3 22.9 21.0-28.0 mmol/L Arterial Blood Oxygen Saturation 92.2 L 94.0-98.0 % Arterial Blood Base Excess -6.7 L -2.0-3.0 mmol/L Arterial Blood Oxyhemoglobin 90.9 L 94.0-98.0 % Arterial Blood Carboxyhemoglobin 0.8 0.5-1.5 % Arterial Blood Methemoglobin 0.6 0.0-1.5 % Cole Test N/a Blood Gas Total Hemoglobin 12.20 L 13.5-17.5 g/dL Blood Gas Set Respiration Rate 14.0 Blood Gas Modality Vent - ac FiO2 % 50.0 Blood Gas Tidal Volume 400.0 Blood Gas PEEP or CPAP 5.0 Blood Gas Comments 1st paged 1999 Blood Gas Critical Value Read Back Yes Blood Gas Notified Whom cirilo Caballero Blood Gas Notified Time [id number] Blood Gas Notified By Telephone Information Clerk shreya salgado POC Glucose 101 70-106 mg/dl Urine Color Yellow Yellow Urine Clarity Turbid H Clear Urine pH 6.0 5.0-9.0 Urine Specific [place] 1.017 1.001-1.035 Urine Protein 1+ H Negative Urine Ketones Negative Negative Urine Blood 3+ H Negative /uL Urine Nitrite Negative Negative Urine Bilirubin Negative Negative Urine Urobilinogen 3 H Negative mg/dL Urine Leukocyte Esterase 2+ Negative /uL Urine RBC 14 0 - 3 /hpf Urine Microscopic WBC 10 H 0-3 /HPF Urine Squamous Epithelial Cells Few <5 /hpf Urine Bacteria Few H None Seen /hpf Urine Mucus Few None Seen Urine Glucose Normal Normal mg/dL Lactic Acid Level 7.8 *H 0.4-2.0 mmol/L Troponin I High Sensitivity 133 *H </=54 ng/L Test 09/25/24 14:00 09/25/24 13:31 09/25/24 13:04 Range/Units Troponin I High Sensitivity 91 *H 73 *H </=54 ng/L Blood Gas Specimen Type Arterial Blood Gas Sample Site Right brachial Blood Gas Patient Temperature 37.0 Arterial Blood Date Drawn [id number] Arterial Blood pH 7.155 *L 7.350-7.450 Arterial Blood Partial Pressure CO2 44.3 35.0-48.0 mmHg Arterial Blood Partial Pressure O2 137.6 H 83.0-108.0 mmHg Arterial Blood HCO3 15.3 L 21.0-28.0 mmol/L Arterial Blood Oxygen Saturation 98.1 H 94.0-98.0 % Arterial Blood Base Excess -12.9 L -2.0-3.0 mmol/L Arterial Blood Oxyhemoglobin 96.8 94.0-98.0 % Arterial Blood Carboxyhemoglobin 0.6 0.5-1.5 % Arterial Blood Methemoglobin 0.7 0.0-1.5 % Cole Test Modified Blood Gas Total Hemoglobin 11.10 L 13.5-17.5 g/dL Blood Gas Set Respiration Rate 14.0 Blood Gas Modality Vent - ac FiO2 % 100.0 Blood Gas Tidal Volume 400.0 Blood Gas PEEP or CPAP 5.0 Blood Gas Critical Value Read Back Yes Blood Gas Notified Whom Md. beth Blood Gas Notified Time [id number] Blood Gas Notified By Telephone Information Clerk sharad puente White Blood Count 15.7 H 4.4-10.8 10^3/uL Red Blood Count 3.55 L 4.5-5.90 10^6/uL Hemoglobin 10.0 L 13.5-17.5 g/dL Hematocrit 32.4 L 41.0-53.0 % Mean Corpuscular Volume 91.3 80.0-100.0 fL Mean Corpuscular Hemoglobin 28.0 28.0-32.0 pg Mean Corpuscular Hemoglobin Concent 30.7 L 32.0-36.0 g/dL Red Cell Distribution Width 20.8 H 11.8-14.3 % Platelet Count 104 L 140-450 10^3/uL Mean Platelet Volume 9.9 6.9-10.8 fL Neutrophils (%) (Auto) 37.0-80.0 % Lymphocytes (%) (Auto) 10.0-50.0 % Monocytes (%) (Auto) 0.0-12.0 % Basophils (%) (Auto) 0.0-2.0 % Neutrophils # (Auto) 1.6-8.6 10 ^3/uL Lymphocytes # (Auto) 0.4-5.4 10 ^3/uL Monocytes # (Auto) 0-1.3 10 ^3/uL Differential Total Cells Counted 100.0 100 Neutrophils % (Manual) 75 37.0-80.0 Band Neutrophils % (Manual) 8 Lymphocytes % (Manual) 9 L 10.0-50.0 Monocytes % (Manual) 8 0-12 Eosinophils % (Manual) 0 0-7 Basophils % (Manual) 0 0.0-2.0 Metamyelocytes % (manual) 0 Myelocytes % (Manual) 0 Promyelocytes % (Manual) 0 Blast Cells % (Manual) 0 Reactive Lymphocytes 0 Platelet Estimate Decrea Large Platelets Few Poikilocytosis (manual) Slight Anisocytosis (manual) Slight Ovalocytes Few Schistocytes Few Sodium Level 138 136-145 mmol/L Potassium Level 5.4 H 3.5-5.1 mmol/L Chloride Level 99 98-107 mmol/L Carbon Dioxide Level 17 L 20-31 mmol/L Anion Gap 22 H 5-15 Blood Urea Nitrogen 38 H 9-23 mg/dL Creatinine 1.11 0.700-1.30 mg/dL Glomerular Filtration Rate Calc 68 >90 mL/min BUN/Creatinine Ratio 34.2 H 10.0-20.0 Serum Glucose 89 74-106 mg/dL Lactic Acid Level 14.0 *H 0.4-2.0 mmol/L Calcium Level 7.9 L 8.7-10.4 mg/dL Total Bilirubin 1.6 H 0.2-1.0 mg/dL Aspartate Amino Transferase (AST) 2544 H 13-40 U/L Alanine Aminotransferase (ALT) 517 H 7-40 U/L Alkaline Phosphatase 138 H 46-116 U/L B-Type Natriuretic Peptide 199.19 0-100 pg/mL Total Protein 4.8 L 5.7-8.2 g/dL Albumin 2.5 L 3.2-4.8 g/dL Microbiology Date/Time Source Procedure Growth Status 09/26/24 20:08 Nose MRSA Screen - Final Complete 09/25/24 12:40 Sputum Gram Stain - Final Complete 09/25/24 12:40 Sputum Respiratory Culture - Final Complete Assessment 79-year-old male admitted to the hospital due to unresponsiveness was admitted with a diagnosis of altered mental state in the setting of acetaminophen toxicity. Patient is currently in fulminant liver failure. Nephrology consulted for progressive worsening renal function. 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
[2024-09-29] MEDS: ALBUMIN 25% 50 ML IV SCH (13:45)
--- NOTE | 2024-09-29 14:13 | DVHPN2 ---
Progress Note - Dictate Date Seen: Sep 29, 2024 Has the PT tested + for MRSA If YES, has PT been informed?: No Medical Necessity Reason Pt with a Central, PICC or Fol: Yes vital signs Vital Sign Date Time Temp Pulse Resp B/P (MAP) Pulse Ox O2 Delivery O2 Flow Rate FiO2 09/29/24 12:31 73 22 110/72 (85) 95 30 09/29/24 06:00 Mechanical Ventilator+ 09/29/24 04:00 97.5 97.5 09/28/24 08:00 0 Total Intake and Output 09/28/24 09/28/24 09/29/24 15:00 23:00 07:00 Intake Total 1590.640 ml 1107.500 ml 1244.623 ml Output Total 90 ml Balance 1590.640 ml 1107.500 ml 1154.623 ml medications Current Medications Medications Dose Ordered Sig/Hair Route Start Time Stop Time Status Last Admin Dose Admin Midazolam HCl 50 ml @ 1 mls/hr Q24H IV 09/25/24 13:00 09/28/24 22:20 1 MLS/HR Fentanyl Citrate 250 ml @ 2.5 mls/hr Q24H IV 09/25/24 13:00 09/29/24 00:47 7.5 MLS/HR Vasopressin 20 units/Sodium Chloride 100 ml @ 9 mls/hr Q11H7M IV 09/25/24 19:00 09/29/24 05:30 9 MLS/HR Vancomycin HCl 0 ml @ 0 mls/hr UD IV 09/25/24 19:45 Pantoprazole Sodium 40 mg DAILY IV 09/26/24 11:00 09/29/24 10:33 40 MG Norepinephrine Bitartrate 32 mg/ Sodium Chloride 250 ml @ 0.938 mls/ hr Q24H IV 09/26/24 14:30 09/29/24 07:00 8.438 MLS/HR Hydrocortisone Sodium Succinate 50 mg Q12HR IV 09/26/24 22:00 09/29/24 10:33 50 MG Epinephrine HCl 250 ml @ 7.5 mls/hr Q24H IV 09/26/24 17:00 09/26/24 17:21 7.5 MLS/HR Enteral Nutritional Formula 1,000 ml 30ML/HR GT 09/27/24 11:30 09/27/24 21:14 1,000 ML Lactulose 30 ml BID PO 09/27/24 22:00 09/28/24 21:37 30 ML Sodium Chloride 1,000 ml @ 75 mls/hr [id number] IV 09/28/24 15:30 09/29/24 05:00 75 MLS/HR Acetylcysteine 5000 mg/Dextrose 1,025 ml @ 62.5 mls/hr Q16H IV 09/28/24 21:15 09/29/24 10:58 62.5 MLS/HR Albumin Human 50 ml @ 100 mls/hr Q8H IV 09/29/24 12:15 09/30/24 04:44 09/29/24 13:45 100 MLS/HR Meropenem 50 ml @ 17 mls/hr Q12HR IV 09/29/24 22:00 laboratory and microbiology Laboratory Tests 09/29/24 02:50 Test 09/29/24 02:50 Range/Units Serum Glucose 140 #H 74-106 mg/dL Assessment/Plan *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* Impression Acute hypoxemic respiratory failure Tylenol toxicity Bacteremia SANJAY Patient seen and examined in ICU Events Patient bed bound at home, initially presented with altered mental status Required intubation for respiratory distress On mechanical ventilation PEEP 5, FiO2 30% Appears encephalopathic GPC in blood x2 Labs and imaging reviewed Tylenol level elevated, significance unclear LFT's trending down ABG reviewed Management Vent support Titrate to maintain sats 90% or above Sedation for vent synchrony Continue antibiotics F/u cultures Bronchodilators Monitor renal function F/u nephrology, management deferred Monitor electrolytes Supplement as needed Mucomyst per protocol for Tylenol toxicity Pressors as needed for hemodynamic support To maintain a mean arterial pressure of 65 mmHg DVT prophylaxis Critical care time 35 minutes Dietary Evaluation Review Comments: Step 1. Tube feeding Vital HP. goal rate @40ml/hr providing 960kcal, 84g protein 803 ml free water; supporting 106% energy needs and 107% protein needs. Step 2. Increase Vital HP to 45ml/hr (94g protein and 1080 kcal, 903ml free water) when pt tolerates the 40ml/hr regimen. 3, Reassess needs and medical feasiblilty of PO feeding when pt is extubated. Expected Outcomes/Goals: support protein and energy needs and maintain current wt. Plan discussed with: Other (Rn) SAMMY STOCK MD Sep 29, 2024 14:13
[2024-09-29] MEDS: POTASSIUM CHL 20MEQ/100ML 100 ML IV ONE (14:45)
--- NOTE | 2024-09-29 15:43 | DVHPN2 ---
Subjective intubated and sedated Reviewed: H&P, Labs Changes from previous H/P or p: No Changes Objective Vitals Vital Signs Date Time Temp Pulse Resp B/P (MAP) Pulse Ox O2 Delivery O2 Flow Rate FiO2 09/29/24 14:02 72 22 103/66 (78) 95 30 09/29/24 06:00 Mechanical Ventilator+ 09/29/24 04:00 97.5 97.5 09/28/24 08:00 0 Intake/Output Intake and Output 09/29/24 07:00 Intake Total 3942.763 ml Output Total 90 ml Balance 3852.763 ml Intake Oral 50 ml IV Total 3782.763 ml Tube Feeding 110 ml Output Urine Total 90 ml # Bowel Movements 1 Medications Current Medications Medications Dose Ordered Sig/Hair Route Start Time Stop Time Status Last Admin Dose Admin Midazolam HCl 50 ml @ 1 mls/hr Q24H IV 09/25/24 13:00 09/28/24 22:20 1 MLS/HR Fentanyl Citrate 250 ml @ 2.5 mls/hr Q24H IV 09/25/24 13:00 09/29/24 00:47 7.5 MLS/HR Vasopressin 20 units/Sodium Chloride 100 ml @ 9 mls/hr Q11H7M IV 09/25/24 19:00 09/29/24 05:30 9 MLS/HR Vancomycin HCl 0 ml @ 0 mls/hr UD IV 09/25/24 19:45 Pantoprazole Sodium 40 mg DAILY IV 09/26/24 11:00 09/29/24 10:33 40 MG Norepinephrine Bitartrate 32 mg/ Sodium Chloride 250 ml @ 0.938 mls/ hr Q24H IV 09/26/24 14:30 09/29/24 07:00 8.438 MLS/HR Hydrocortisone Sodium Succinate 50 mg Q12HR IV 09/26/24 22:00 09/29/24 10:33 50 MG Epinephrine HCl 250 ml @ 7.5 mls/hr Q24H IV 09/26/24 17:00 09/26/24 17:21 7.5 MLS/HR Enteral Nutritional Formula 1,000 ml 30ML/HR GT 09/27/24 11:30 09/27/24 21:14 1,000 ML Lactulose 30 ml BID PO 09/27/24 22:00 09/28/24 21:37 30 ML Sodium Chloride 1,000 ml @ 75 mls/hr [id number] IV 09/28/24 15:30 09/29/24 05:00 75 MLS/HR Acetylcysteine 5000 mg/Dextrose 1,025 ml @ 62.5 mls/hr Q16H IV 09/28/24 21:15 09/29/24 10:58 62.5 MLS/HR Meropenem 50 ml @ 17 mls/hr Q12HR IV 09/29/24 22:00 Laboratory Results Laboratory Tests 09/29/24 02:50 Chemistry Test 09/29/24 02:50 Albumin 1.6 g/dL (3.2-4.8) L Calcium Level 6.2 mg/dL (8.7-10.4) L Total Protein 3.3 g/dL (5.7-8.2) L Coagulation Test 09/29/24 02:50 Prothrombin Time 18.2 sec (9.3-11.8) H Prothrombin Time INR 1.82 (0.9-1.15) H Activated Partial Thromboplast Time 103.2 SEC (24.5-34.5) *H LFT Test 09/29/24 02:50 Alanine Aminotransferase (ALT) 500 U/L (7-40) H Alkaline Phosphatase 295 U/L (46-116) H Aspartate Amino Transferase (AST) 953 U/L (13-40) H Total Bilirubin 2.4 mg/dL (0.2-1.0) H Urinalysis Test 09/27/24 16:44 Urine Color [place] (Yellow) H Urine Clarity Turbid (Clear) H Urine pH 5.5 (5.0-9.0) Urine Specific [place] 1.017 (1.001-1.035) Urine Protein 2+ (Negative) H Urine Ketones 1+ (Negative) H Urine Blood 2+ /uL (Negative) H Urine Nitrite Negative (Negative) Urine Bilirubin Negative (Negative) Urine Urobilinogen Normal mg/dL (Negative) Urine Leukocyte Esterase 3+ /uL (Negative) Urine RBC 24 /hpf (0 - 3) Urine Microscopic WBC 39 /HPF (0-3) H Urine Squamous Epithelial Cells Few /hpf (<5) Urine Bacteria Few /hpf (None Seen) H Urine Mucus Few (None Seen) Urine Glucose 2+ mg/dL (Normal) H Blood Gas Results Test 09/29/24 08:29 Arterial Blood pH 7.331 (7.350-7.450) FiO2 % 30.0 Microbiology Microbiology Date/Time Source Procedure Growth Status 09/27/24 16:44 Voided Urine Urine Culture - Preliminary Resulted 09/27/24 13:10 Blood Blood Culture - Preliminary NO GROWTH AFTER 48 HOURS OF INCUBATION. Resulted 09/26/24 20:08 Nose MRSA Screen - Final Complete 09/25/24 12:40 Sputum Gram Stain - Final Complete 09/25/24 12:40 Sputum Respiratory Culture - Final Complete Assessment/Plan Assessment/Plan Neurology #Acute Toxic/Metabolic Encephalopathy: Likely multifactorial (shock liver, SANJAY, sepsis, tylenol overdose) #Moderate chronic microvascular ischemic changes. #Mild global cerebral volume loss fentanyl and midazolam RASS-3 ID #Bacteriemia #Pneumonia #UTI meropenem and vancomycin 09/28/24: ct scan abdomen/chest: Bilateral pulmonary airspace consolidation most pronounced within the left lower lobe, Severe pulmonary emphysematous changes. Right lower lobe nodularity which is likely secondary to underlying infection /pneumonia, Small bilateral pleural effusions, Abdominal aortic aneurysm measuring 5.6 cm in diameter, There is a right common femoral vein central venous catheter with the catheter tip projecting into the region deep pelvis, likely within the right internal iliac vein branch, Gallbladder hyperdensity/ sludge, Small amount of ascites fluid, Large volume stool in the rectum, start feedings, GI consult, ammonia levels were high, lactulose started, leg arterial US showed severe PAD, we will continue treatment but prognosis is poor 09/28/24: over night patient had atrial fibrillation, amiodarone was started per night team and cardiology was consulted, cardiology dc amiodarone drip, no need of further rate control since his HR 65, extensive discussion with and son, possible transfer to comfort measures but they want to speak with his other children, patient has DIC, platelets are trending down, anuric, nephrology is consulted, fio2 is lower, levophed 20, versed 0.03, tylenol levels 29, blood culture came positive for providencia alcalifaciens sensitive to meropenem, poison control will contacted due to tylenol toxicity we will continue acetylcysteine IV drip, calcium is low, calcium IV was given blood culture positive for staph coagulase negative and providencia alcalifaciens Cardiology #Multiorgan failure #Septic shock due to bacteremia, UTI, possible pneumonia, multiple pressure wounds, liver failure #NSTEMI type 2 likely due to demand ischemia #New onset atrial fibrillation #Ne onset heart started on IV fluids bicarb drip, norepinephrine, vasopressin and epinephrine hydrocortisone IV echo: LVEF 55-60%, mild LVH Right ventricle mildly dilated, normal function Interatrial septum is aneurysmal negtive bubble study for shunt. Moderate pulmonary hypertension, RVSP 50-65 mmgh no need of rate or rhythm control dc amiodarone drip ns 75cc/h Respiratory #Acute respiratory failure due to septic shock, COPD exacerbation and pneumonia #Respiratory acidosis resolving #Pneumonia gram+/ gram - #COPD exacerbation #Bilateral pleural effusions Intubated for respiratory distress; AC/VC mode. meropenem + vancomycin pending cultures Fio2 trending down high risk of bleeding, no thoracentesis GI #Acute liver failure due to Tylenol toxicity #Shock liver #Severe malnutrition and cachexia #distal AAA #Possible GI bleeding #Severe coagulopathy #Gallbladder hyperdensity/ sludge #Hyperammonemia Started on acetylcysteine protocol Vitamin K GI consult continue feedings hb stable lactulose Metabolic #Hypoglycemia at admission #Severe lactic acidosis #Severe metabolic acidosis #Possible hypothyroidism #Hypocalcemia due to high risk of arrhythmia: no T4 supplementation for now . TSH 7 calcium gluconate given Renal #SANJAY probably due to VMN, worsening due to multiorgan failure #Complicated UTI #Hematuria due to coagulopathy in UA oliguria almost anuria stop bicarb drip 75cc/h ns 75cc/h meropenem + vanc Heme/onc #Leukocytosis with bands #Anemia due to possible chronic disease #Thrombocytopenia #Severe coagulopathy #DIC hb stable, but there is a concern of GI bleeding due to dark NG tube output MSK #Multiple wounds and ecchymosis Patient is on a severe coagulopathic state and severe denutrition: poor prognosis, wound consult: supportive care consult SS and poison control Plan discussed with: Daughter My Orders Orders - REESE NGUYỄN MD Procedure Category Date Status Time Acetaminophen LAB 09/29/24 In Process 14:49 Date of Service: Sep 29, 2024 Billing Provider: REESE NGUYỄN MD Common Visit Codes: 81998-[id number] CARE 30-74 MIN REESE NGUYỄN MD Sep 29, 2024 15:43
--- NOTE | 2024-09-29 16:20 | DVHPN2 ---
Progress Note - Dictate Date Seen: Sep 29, 2024 Has the PT tested + for MRSA If YES, has PT been informed?: No Medical Necessity Reason Pt with a Central, PICC or Fol: Yes Subjective Patient is still intubated and sedated Leukocytosis is improved Hemoglobin is stable, NG tube output was dark and moderate in amount Liver enzymes are starting to trend down Tylenol level level is 12 INR is less than two but be TTE still elevated Patient is on an IV Mucomyst drip Ammonia level is up to 60 vital signs Vital Sign Date Time Temp Pulse Resp B/P (MAP) Pulse Ox O2 Delivery O2 Flow Rate FiO2 09/29/24 14:02 72 22 103/66 (78) 95 30 09/29/24 06:00 Mechanical Ventilator+ 09/29/24 04:00 97.5 97.5 09/28/24 08:00 0 Total Intake and Output 09/28/24 09/28/24 09/29/24 15:00 23:00 07:00 Intake Total 1590.640 ml 1107.500 ml 1244.623 ml Output Total 90 ml Balance 1590.640 ml 1107.500 ml 1154.623 ml medications Current Medications Medications Dose Ordered Sig/Hair Route Start Time Stop Time Status Last Admin Dose Admin Midazolam HCl 50 ml @ 1 mls/hr Q24H IV 09/25/24 13:00 09/28/24 22:20 1 MLS/HR Fentanyl Citrate 250 ml @ 2.5 mls/hr Q24H IV 09/25/24 13:00 09/29/24 00:47 7.5 MLS/HR Vasopressin 20 units/Sodium Chloride 100 ml @ 9 mls/hr Q11H7M IV 09/25/24 19:00 09/29/24 05:30 9 MLS/HR Vancomycin HCl 0 ml @ 0 mls/hr UD IV 09/25/24 19:45 Pantoprazole Sodium 40 mg DAILY IV 09/26/24 11:00 09/29/24 10:33 40 MG Norepinephrine Bitartrate 32 mg/ Sodium Chloride 250 ml @ 0.938 mls/ hr Q24H IV 09/26/24 14:30 09/29/24 07:00 8.438 MLS/HR Hydrocortisone Sodium Succinate 50 mg Q12HR IV 09/26/24 22:00 09/29/24 10:33 50 MG Epinephrine HCl 250 ml @ 7.5 mls/hr Q24H IV 09/26/24 17:00 09/26/24 17:21 7.5 MLS/HR Enteral Nutritional Formula 1,000 ml 30ML/HR GT 09/27/24 11:30 09/27/24 21:14 1,000 ML Lactulose 30 ml BID PO 09/27/24 22:00 09/28/24 21:37 30 ML Sodium Chloride 1,000 ml @ 75 mls/hr [id number] IV 09/28/24 15:30 09/29/24 05:00 75 MLS/HR Acetylcysteine 5000 mg/Dextrose 1,025 ml @ 62.5 mls/hr Q16H IV 09/28/24 21:15 09/29/24 10:58 62.5 MLS/HR Meropenem 50 ml @ 17 mls/hr Q12HR IV 09/29/24 22:00 objective General: Patient is intubated and sedated Chest: lung peraza clear to auscultation Heart: RRR, no murmur Abdomen: non-distended, soft, +BS laboratory and microbiology Laboratory Tests 09/29/24 02:50 Test 09/29/24 02:50 Range/Units Serum Glucose 140 #H 74-106 mg/dL Problems(with codes): (1) Tylenol toxicity (2) Metabolic encephalopathy (3) Sepsis (4) Hypoglycemia (5) Anorexia Prognosis Plan Complete IV acetylcysteine or Mucomyst as per protocol Continue to monitor labs Patient is currently NPO We will start IV Clinimix at 42 mL/hour if prolonged fasting is anticipated Family is considering terminal wean and comfort care for this patient awaiting further family to arrive Prognosis remains guarded Dietary Evaluation Review Comments: Step 1. Tube feeding Vital HP. goal rate @40ml/hr providing 960kcal, 84g protein 803 ml free water; supporting 106% energy needs and 107% protein needs. Step 2. Increase Vital HP to 45ml/hr (94g protein and 1080 kcal, 903ml free water) when pt tolerates the 40ml/hr regimen. 3, Reassess needs and medical feasiblilty of PO feeding when pt is extubated. Expected Outcomes/Goals: support protein and energy needs and maintain current wt. Plan discussed with: Other (None) VETO TOLEDO MD Sep 29, 2024 16:20
[2024-09-29] MEDS: VANCOMYCIN 500mg/100mL 100 ML IV ONE (17:15)
[2024-09-29] MEDS: MEROPENEM 500MG IVPB 50 ML IV SCH (21:55)
--- NOTE | 2024-09-29 23:21 | DVHPN2 ---
Consult Progress Note Date Seen: Sep 29, 2024 Subjective Other Systems: Patient was seen and evaluated in follow up in the ICU. No overnight cardiac events reported. Patient is intubated and sedated on ventilator. 30% FiO2. Approx 1000 ml of brown liquid was aspirated from NG tube. HGB 9.7, HCT 28.2, PT 18.2, INR 1.82, PTT 103.2. Chest x-ray is unchanged. Objective vital signs Vital Sign Date Time Temp Pulse Resp B/P (MAP) Pulse Ox O2 Delivery O2 Flow Rate FiO2 09/29/24 10:00 68 22 105/69 (81) 95 30 09/29/24 06:00 Mechanical Ventilator+ 09/29/24 04:00 97.5 97.5 09/28/24 08:00 0 Total Intake and Output 09/28/24 09/28/24 09/29/24 15:00 23:00 07:00 Intake Total 1590.640 ml 1107.500 ml 1244.623 ml Output Total 90 ml Balance 1590.640 ml 1107.500 ml 1154.623 ml medications Current Medications Medications Dose Ordered Sig/Hair Route Start Time Stop Time Status Last Admin Dose Admin Midazolam HCl 50 ml @ 1 mls/hr Q24H IV 09/25/24 13:00 09/28/24 22:20 1 MLS/HR Fentanyl Citrate 250 ml @ 2.5 mls/hr Q24H IV 09/25/24 13:00 09/29/24 00:47 7.5 MLS/HR Vasopressin 20 units/Sodium Chloride 100 ml @ 9 mls/hr Q11H7M IV 09/25/24 19:00 09/29/24 05:30 9 MLS/HR Vancomycin HCl 0 ml @ 0 mls/hr UD IV 09/25/24 19:45 Meropenem 50 ml @ 17 mls/hr Q12HR IV 09/26/24 22:00 09/29/24 10:46 17 MLS/HR Pantoprazole Sodium 40 mg DAILY IV 09/26/24 11:00 09/29/24 10:33 40 MG Norepinephrine Bitartrate 32 mg/ Sodium Chloride 250 ml @ 0.938 mls/ hr Q24H IV 09/26/24 14:30 09/29/24 07:00 8.438 MLS/HR Hydrocortisone Sodium Succinate 50 mg Q12HR IV 09/26/24 22:00 09/29/24 10:33 50 MG Epinephrine HCl 250 ml @ 7.5 mls/hr Q24H IV 09/26/24 17:00 09/26/24 17:21 7.5 MLS/HR Enteral Nutritional Formula 1,000 ml 30ML/HR GT 09/27/24 11:30 09/27/24 21:14 1,000 ML Lactulose 30 ml BID PO 09/27/24 22:00 09/28/24 21:37 30 ML Sodium Chloride 1,000 ml @ 75 mls/hr [id number] IV 09/28/24 15:30 09/29/24 05:00 75 MLS/HR Acetylcysteine 5000 mg/Dextrose 1,025 ml @ 62.5 mls/hr Q16H IV 09/28/24 21:15 09/29/24 10:58 62.5 MLS/HR Albumin Human 50 ml @ 100 mls/hr Q8H IV 09/29/24 12:15 09/30/24 04:44 UNV Examination: GENERAL:Abnormal (intubated on vent), HEENT:Normal, NECK:Normal, LUNGS:Abnormal (diminshed breath sounds ), CVS:Normal, ABDOMEN:Normal, MSK:Normal, NEURO:Abnormal laboratory and microbiology Laboratory Tests 09/29/24 02:50 Test 09/29/24 02:50 Range/Units Serum Glucose 140 #H 74-106 mg/dL Problem List/Assessment/Plan Problem List/Assessment/Plan Problem List Septic shock with PNA/UTI and multiple organ failure. Acute Toxic/Metabolic Encephalopathy likely due to sepsis/Tylenol toxicity. NSTEMI type 2 likely due to above. New onset atrial fibrillation, likely due to electrolyte imbalance/sepsis. Distal AAA. DIC with acquired coagulopathy. Hypocalcemia. SANJAY probably due to VMN, worsening due to multiorgan failure. Hematuria due to coagulopathy in UA . Plan/recommendation Continued all current supportive medical care. Patient has been seen by Sally Solares NP on my behalf, her and I discussed the plan with the patient. Digoxin for rate control for atrial fibrillation. Discontinue amiodarone drip. Replete electrolytes as necessary, K>4 and Mg>2. Anticoagulation held given severe thrombocytopenia. At high risk for acute CVA. Rest of the per primary team. Severely ill patient, poor prognosis. Consider goals of care. Additional plan as per the hospital course. Plan discussed with: Other Dietary Evaluation Review Comments: Step 1. Tube feeding Vital HP. goal rate @40ml/hr providing 960kcal, 84g protein 803 ml free water; supporting 106% energy needs and 107% protein needs. Step 2. Increase Vital HP to 45ml/hr (94g protein and 1080 kcal, 903ml free water) when pt tolerates the 40ml/hr regimen. 3, Reassess needs and medical feasiblilty of PO feeding when pt is extubated. Expected Outcomes/Goals: support protein and energy needs and maintain current wt. Date of Service: Sep 29, 2024 Billing Provider: ROSE CHEEK MD Cardiology Common Codes: 93903-[id number] [facility] ROSE CHEEK MD Sep 29, 2024 12:17
[2024-09-30] VITALS (105 sets, daily range): BP systolic 79–135; BP diastolic 48–96; PULSE 59–87; RESP 11–23; TEMP 97.2–99.1; O2SAT 92–100
[2024-09-30 03:25] LABS: Anion Gap 16 (5-15); Carbon Dioxide 22 mmol/L (20-31); Potassium 3.8 mmol/L (3.5-5.1)
[2024-09-30 03:30] LABS: Hematocrit 24.2 % (41.0-53.0); Hemoglobin 8.4 g/dL (13.5-17.5); Mean Corpuscular Hemoglobin 29.0 pg (28.0-32.0); Mean Corpuscular Volume 83.3 fL (80.0-100.0)
[2024-09-30 03:31] LABS: BUN/Creatinine Ratio 26.0 (10.0-20.0); Magnesium 1.7 mg/dL (1.6-2.6)
[2024-09-30 03:38] LABS: Blood Urea Nitrogen 56 mg/dL (9-23); Calcium 6.2 mg/dL (8.7-10.4); Chloride 95 mmol/L (98-107); Glucose 108 mg/dL (74-106); Sodium 133 mmol/L (136-145)
[2024-09-30 03:54] LABS: Total Cells Counted 100.0 (100)
[2024-09-30 03:55] LABS: Anisocytosis Slight; Ovalocytes MODERATE
--- NOTE | 2024-09-30 05:49 | DVH ---
EXAM: XY CHEST PORTABLE Indication: Acute resp failure Technique: Single frontal view of the chest was obtained Comparison: XY CHEST XRAY 1 VIEW on DOS: 09/29/24, XY CHEST XRAY 1 VIEW on DOS: 09/28/24, XY CHEST XRAY 1 VIEW on DOS: 09/27/24, XY CHEST XRAY 1 VIEW on DOS: 09/25/24, XY CHEST PORTABLE on DOS: 09/25/24, XY CHEST XRAY 1 VIEW on DOS: 09/29/24 FINDINGS: Lines and Tubes: Endotracheal tube, enteric catheter in satisfactory position. Lungs: Mild focal airspace disease. Pleura: Trace bilateral pleural effusions. No pneumothorax. Cardiomediastinal contours: Unremarkable Bones: Unremarkable IMPRESSION: Lines and tubes in satisfactory position. No significant interval change.
[2024-09-30 07:01] LABS: Base Excess -6.1 mmol/L (-2.0-3.0)
--- NOTE | 2024-09-30 10:15 | DVHPN2 ---
Progress Note Date Seen: Sep 30, 2024 Has the PT tested + for MRSA If YES, has PT been informed?: No Medical Necessity Reason Pt with a Central, PICC or Fol: Yes The following are medically ne: Central Line, Clark Catheter Subjective Changes from previous H/P or p: No Changes Review of Systems: Deferred Objective vital signs Vital Sign Date Time Temp Pulse Resp B/P (MAP) Pulse Ox O2 Delivery O2 Flow Rate FiO2 09/30/24 09:15 98.6 63 22 91/55 (67) 209.5 09/30/24 08:08 93 30 09/30/24 05:57 Mechanical Ventilator+ 09/28/24 08:00 0 Total Intake and Output 09/29/24 09/29/24 09/30/24 15:00 23:00 07:00 Intake Total 1444.2 ml 1344.574 ml 1218.314 ml Output Total 775 ml 800 ml Balance 1444.2 ml 569.574 ml 418.314 ml medications Current Medications Medications Dose Ordered Sig/Hair Route Start Time Stop Time Status Last Admin Dose Admin Midazolam HCl 50 ml @ 1 mls/hr Q24H IV 09/25/24 13:00 09/28/24 22:20 1 MLS/HR Fentanyl Citrate 250 ml @ 2.5 mls/hr Q24H IV 09/25/24 13:00 09/30/24 01:35 5 MLS/HR Vasopressin 20 units/Sodium Chloride 100 ml @ 9 mls/hr Q11H7M IV 09/25/24 19:00 09/30/24 04:04 6 MLS/HR Vancomycin HCl 0 ml @ 0 mls/hr UD IV 09/25/24 19:45 Pantoprazole Sodium 40 mg DAILY IV 09/26/24 11:00 09/29/24 10:33 40 MG Norepinephrine Bitartrate 32 mg/ Sodium Chloride 250 ml @ 0.938 mls/ hr Q24H IV 09/26/24 14:30 09/30/24 01:36 4.688 MLS/HR Hydrocortisone Sodium Succinate 50 mg Q12HR IV 09/26/24 22:00 09/29/24 21:38 50 MG Epinephrine HCl 250 ml @ 7.5 mls/hr Q24H IV 09/26/24 17:00 09/26/24 17:21 7.5 MLS/HR Enteral Nutritional Formula 1,000 ml 30ML/HR GT 09/27/24 11:30 09/29/24 20:27 1,000 ML Lactulose 30 ml BID PO 09/27/24 22:00 09/29/24 21:57 30 ML Sodium Chloride 1,000 ml @ 75 mls/hr [id number] IV 09/28/24 15:30 09/30/24 05:46 75 MLS/HR Acetylcysteine 5000 mg/Dextrose 1,025 ml @ 62.5 mls/hr Q16H IV 09/28/24 21:15 09/30/24 01:35 62.5 MLS/HR Meropenem 50 ml @ 17 mls/hr Q12HR IV 09/29/24 22:00 09/29/24 21:55 17 MLS/HR Examination: GENERAL:Abnormal, LUNGS:Abnormal, CVS:Abnormal, ABDOMEN:Abnormal, SKIN:Abnormal, NEURO:Abnormal laboratory and microbiology Laboratory Tests 09/30/24 02:25 Test 09/30/24 02:25 Range/Units Serum Glucose 108 H 74-106 mg/dL Microbiology Date/Time Source Procedure Growth Status 09/27/24 16:44 Voided Urine Urine Culture - Preliminary Resulted 09/27/24 13:10 Blood Blood Culture - Preliminary NO GROWTH AFTER 48 HOURS OF INCUBATION. Resulted 09/26/24 20:08 Nose MRSA Screen - Final Complete 09/25/24 12:40 Sputum Gram Stain - Final Complete 09/25/24 12:40 Sputum Respiratory Culture - Final Complete Problem List/Assessment/Plan Problem List/Assessment/Plan 79-year-old male admitted to the hospital due to unresponsiveness was admitted with a diagnosis of altered mental state in the setting of acetaminophen toxicity. Patient is currently in fulminant liver failure. Nephrology consulted for progressive worsening renal function. Previous renal function on admission was within normal limits which has gradually worsened Acute kidney injury multifactorial hemodynamically mediated Fulminant liver failure in the setting of acetaminophen toxicity Thrombocytopenia Sepsis , shock acidosis Severe protein calorie malnutrition Acute respiratory failure 5.5 cm AAA aortic aneurysm Patient is currently on N-acetylcysteine IV fluid strict I/O Avoid hypotension Maintain mean arterial pressure greater than 65 Treat electrolytes accordingly Patient has a very poor overall prognosis Overall is not a candidate for usp dialysis, family is planning for inpatient hospice and terminal wean potentially soon critically ill , critical care time 40mins Plan discussed with: Other Dietary Evaluation Review Comments: Step 1. Tube feeding Vital HP. goal rate @40ml/hr providing 960kcal, 84g protein 803 ml free water; supporting 106% energy needs and 107% protein needs. Step 2. Increase Vital HP to 45ml/hr (94g protein and 1080 kcal, 903ml free water) when pt tolerates the 40ml/hr regimen. 3, Reassess needs and medical feasiblilty of PO feeding when pt is extubated. Expected Outcomes/Goals: support protein and energy needs and maintain current wt. LINDY JESSCIA MD Sep 30, 2024 10:15
--- NOTE | 2024-09-30 13:56 | DVHPN2 ---
Progress Note - Dictate Date Seen: Sep 30, 2024 Has the PT tested + for MRSA If YES, has PT been informed?: No Medical Necessity Reason Pt with a Central, PICC or Fol: Yes The following are medically ne: Central Line, Clakr Catheter vital signs Vital Sign Date Time Temp Pulse Resp B/P (MAP) Pulse Ox O2 Delivery O2 Flow Rate FiO2 09/30/24 13:00 99.0 83 22 99/66 (77) 96 210.2 09/30/24 11:38 30 09/30/24 08:00 Mechanical Ventilator+ 09/28/24 08:00 0 Total Intake and Output 09/29/24 09/29/24 09/30/24 15:00 23:00 07:00 Intake Total 1444.2 ml 1344.574 ml 1370.564 ml Output Total 775 ml 800 ml Balance 1444.2 ml 569.574 ml 570.564 ml medications Current Medications Medications Dose Ordered Sig/Hair Route Start Time Stop Time Status Last Admin Dose Admin Midazolam HCl 50 ml @ 1 mls/hr Q24H IV 09/25/24 13:00 09/28/24 22:20 1 MLS/HR Fentanyl Citrate 250 ml @ 2.5 mls/hr Q24H IV 09/25/24 13:00 09/30/24 01:35 5 MLS/HR Vasopressin 20 units/Sodium Chloride 100 ml @ 9 mls/hr Q11H7M IV 09/25/24 19:00 09/30/24 04:04 6 MLS/HR Vancomycin HCl 0 ml @ 0 mls/hr UD IV 09/25/24 19:45 Pantoprazole Sodium 40 mg DAILY IV 09/26/24 11:00 09/30/24 10:30 40 MG Norepinephrine Bitartrate 32 mg/ Sodium Chloride 250 ml @ 0.938 mls/ hr Q24H IV 09/26/24 14:30 09/30/24 01:36 4.688 MLS/HR Hydrocortisone Sodium Succinate 50 mg Q12HR IV 09/26/24 22:00 09/30/24 10:30 50 MG Epinephrine HCl 250 ml @ 7.5 mls/hr Q24H IV 09/26/24 17:00 09/26/24 17:21 7.5 MLS/HR Enteral Nutritional Formula 1,000 ml 30ML/HR GT 09/27/24 11:30 09/29/24 20:27 1,000 ML Lactulose 30 ml BID PO 09/27/24 22:00 09/30/24 10:29 30 ML Sodium Chloride 1,000 ml @ 75 mls/hr [id number] IV 09/28/24 15:30 09/30/24 05:46 75 MLS/HR Acetylcysteine 5000 mg/Dextrose 1,025 ml @ 62.5 mls/hr Q16H IV 09/28/24 21:15 09/30/24 01:35 62.5 MLS/HR Meropenem 50 ml @ 17 mls/hr Q12HR IV 09/29/24 22:00 09/30/24 10:00 17 MLS/HR laboratory and microbiology Laboratory Tests 09/30/24 02:25 Test 09/30/24 02:25 Range/Units Serum Glucose 108 H 74-106 mg/dL Assessment/Plan *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 Acute hypoxemic respiratory failure Tylenol toxicity Bacteremia SANJAY Patient seen and examined in ICU Events On mechanical ventilation S/p intubation PEEP 5, FiO2 30% Appears encephalopathic Labs and imaging reviewed LFT's trending down ABG reviewed pH 7.32, pCO2 38, pO2 71 Management Vent support Titrate to maintain sats 90% or above Sedation for vent synchrony Continue antibiotics F/u cultures Bronchodilators Monitor renal function F/u nephrology, management deferred Monitor electrolytes Supplement as needed Mucomyst per protocol for Tylenol toxicity Pressors as needed for hemodynamic support To maintain a mean arterial pressure of 65 mmHg Prognosis very poor Recommend family discussion regarding goals of care Patient is not a candidate for fci life support Wound care DVT prophylaxis Critical care time 35 minutes Dietary Evaluation Review Comments: Step 1. Tube feeding Vital HP. goal rate @40ml/hr providing 960kcal, 84g protein 803 ml free water; supporting 106% energy needs and 107% protein needs. Step 2. Increase Vital HP to 45ml/hr (94g protein and 1080 kcal, 903ml free water) when pt tolerates the 40ml/hr regimen. 3, Reassess needs and medical feasiblilty of PO feeding when pt is extubated. Expected Outcomes/Goals: support protein and energy needs and maintain current wt. Plan discussed with: Other (Rn) SAMMY STOCK MD Sep 30, 2024 13:56
--- NOTE | 2024-09-30 15:33 | DVHPN2 ---
Subjective intubated and sedated Reviewed: H&P, Labs Changes from previous H/P or p: No Changes Objective Vitals Vital Signs Date Time Temp Pulse Resp B/P (MAP) Pulse Ox O2 Delivery O2 Flow Rate FiO2 09/30/24 14:30 98.8 65 22 113/71 (85) 96 209.8 09/30/24 14:00 Mechanical Ventilator+ 30 30 09/28/24 08:00 0 Intake/Output Intake and Output 09/30/24 07:00 Intake Total 4159.338 ml Output Total 1575 ml Balance 2584.338 ml Intake Oral 60 ml IV Total 4062.338 ml Tube Feeding 37 ml Output Urine Total 175 ml Gastric Drainage Total 1400 ml # Bowel Movements 2 Medications Current Medications Medications Dose Ordered Sig/Hair Route Start Time Stop Time Status Last Admin Dose Admin Midazolam HCl 50 ml @ 1 mls/hr Q24H IV 09/25/24 13:00 09/28/24 22:20 1 MLS/HR Fentanyl Citrate 250 ml @ 2.5 mls/hr Q24H IV 09/25/24 13:00 09/30/24 01:35 5 MLS/HR Vasopressin 20 units/Sodium Chloride 100 ml @ 9 mls/hr Q11H7M IV 09/25/24 19:00 09/30/24 04:04 6 MLS/HR Vancomycin HCl 0 ml @ 0 mls/hr UD IV 09/25/24 19:45 Pantoprazole Sodium 40 mg DAILY IV 09/26/24 11:00 09/30/24 10:30 40 MG Norepinephrine Bitartrate 32 mg/ Sodium Chloride 250 ml @ 0.938 mls/ hr Q24H IV 09/26/24 14:30 09/30/24 01:36 4.688 MLS/HR Hydrocortisone Sodium Succinate 50 mg Q12HR IV 09/26/24 22:00 09/30/24 10:30 50 MG Epinephrine HCl 250 ml @ 7.5 mls/hr Q24H IV 09/26/24 17:00 09/26/24 17:21 7.5 MLS/HR Enteral Nutritional Formula 1,000 ml 30ML/HR GT 09/27/24 11:30 09/29/24 20:27 1,000 ML Lactulose 30 ml BID PO 09/27/24 22:00 09/30/24 10:29 30 ML Sodium Chloride 1,000 ml @ 75 mls/hr [id number] IV 09/28/24 15:30 09/30/24 05:46 75 MLS/HR Acetylcysteine 5000 mg/Dextrose 1,025 ml @ 62.5 mls/hr Q16H IV 09/28/24 21:15 09/30/24 01:35 62.5 MLS/HR Meropenem 50 ml @ 17 mls/hr Q12HR IV 09/29/24 22:00 09/30/24 10:00 17 MLS/HR Laboratory Results Laboratory Tests 09/30/24 02:25 Chemistry Test 09/30/24 02:25 Calcium Level 6.2 mg/dL (8.7-10.4) L Magnesium Level 1.7 mg/dL (1.6-2.6) Urinalysis Test 09/27/24 16:44 Urine Color Bosque (Yellow) H Urine Clarity Turbid (Clear) H Urine pH 5.5 (5.0-9.0) Urine Specific Bern 1.017 (1.001-1.035) Urine Protein 2+ (Negative) H Urine Ketones 1+ (Negative) H Urine Blood 2+ /uL (Negative) H Urine Nitrite Negative (Negative) Urine Bilirubin Negative (Negative) Urine Urobilinogen Normal mg/dL (Negative) Urine Leukocyte Esterase 3+ /uL (Negative) Urine RBC 24 /hpf (0 - 3) Urine Microscopic WBC 39 /HPF (0-3) H Urine Squamous Epithelial Cells Few /hpf (<5) Urine Bacteria Few /hpf (None Seen) H Urine Mucus Few (None Seen) Urine Glucose 2+ mg/dL (Normal) H Blood Gas Results Test 09/30/24 06:53 Arterial Blood pH 7.320 (7.350-7.450) FiO2 % 30.0 Microbiology Microbiology Date/Time Source Procedure Growth Status 09/27/24 16:44 Voided Urine Urine Culture - Final Enterococcus faecalis Complete 09/27/24 13:10 Blood Blood Culture - Preliminary NO GROWTH AFTER 72 HOURS OF INCUBATION. Resulted 09/26/24 20:08 Nose MRSA Screen - Final Complete 09/25/24 12:40 Sputum Gram Stain - Final Complete 09/25/24 12:40 Sputum Respiratory Culture - Final Complete Assessment/Plan Assessment/Plan Neurology #Acute Toxic/Metabolic Encephalopathy: Likely multifactorial (shock liver, SANJAY, sepsis, tylenol overdose) #Moderate chronic microvascular ischemic changes. #Mild global cerebral volume loss fentanyl and midazolam RASS-3 ID #Bacteriemia #Pneumonia #UTI meropenem and vancomycin 09/28/24: ct scan abdomen/chest: Bilateral pulmonary airspace consolidation most pronounced within the left lower lobe, Severe pulmonary emphysematous changes. Right lower lobe nodularity which is likely secondary to underlying infection /pneumonia, Small bilateral pleural effusions, Abdominal aortic aneurysm measuring 5.6 cm in diameter, There is a right common femoral vein central venous catheter with the catheter tip projecting into the region deep pelvis, likely within the right internal iliac vein branch, Gallbladder hyperdensity/ sludge, Small amount of ascites fluid, Large volume stool in the rectum, start feedings, GI consult, ammonia levels were high, lactulose started, leg arterial US showed severe PAD, we will continue treatment but prognosis is poor 09/28/24: over night patient had atrial fibrillation, amiodarone was started per night team and cardiology was consulted, cardiology dc amiodarone drip, no need of further rate control since his HR 65, extensive discussion with and son, possible transfer to comfort measures but they want to speak with his other children, patient has DIC, platelets are trending down, anuric, nephrology is consulted, fio2 is lower, levophed 20, versed 0.03, tylenol levels 29, blood culture came positive for providencia alcalifaciens sensitive to meropenem, poison control will contacted due to tylenol toxicity we will continue acetylcysteine IV drip, calcium is low, calcium IV was given blood culture positive for staph coagulase negative and providencia alcalifaciens Cardiology #Multiorgan failure #Septic shock due to bacteremia, UTI, possible pneumonia, multiple pressure wounds, liver failure #NSTEMI type 2 likely due to demand ischemia #New onset atrial fibrillation #Ne onset heart started on IV fluids bicarb drip, norepinephrine, vasopressin and epinephrine hydrocortisone IV echo: LVEF 55-60%, mild LVH Right ventricle mildly dilated, normal function Interatrial septum is aneurysmal negtive bubble study for shunt. Moderate pulmonary hypertension, RVSP 50-65 mmgh no need of rate or rhythm control dc amiodarone drip ns 75cc/h Respiratory #Acute respiratory failure due to septic shock, COPD exacerbation and pneumonia #Respiratory acidosis resolving #Pneumonia gram+/ gram - #COPD exacerbation #Bilateral pleural effusions Intubated for respiratory distress; AC/VC mode. meropenem + vancomycin pending cultures Fio2 trending down high risk of bleeding, no thoracentesis GI #Acute liver failure due to Tylenol toxicity #Shock liver #Severe malnutrition and cachexia #distal AAA #Possible GI bleeding #Severe coagulopathy #Gallbladder hyperdensity/ sludge #Hyperammonemia Started on acetylcysteine protocol Vitamin K GI consult continue feedings hb stable lactulose Metabolic #Hypoglycemia at admission #Severe lactic acidosis #Severe metabolic acidosis #Possible hypothyroidism #Hypocalcemia due to high risk of arrhythmia: no T4 supplementation for now . TSH 7 calcium gluconate given Renal #SANJAY probably due to VMN, worsening due to multiorgan failure #Complicated UTI #Hematuria due to coagulopathy in UA oliguria almost anuria stop bicarb drip 75cc/h ns 75cc/h meropenem + vanc Heme/onc #Leukocytosis with bands #Anemia due to possible chronic disease #Thrombocytopenia #Severe coagulopathy #DIC hb stable, but there is a concern of GI bleeding due to dark NG tube output MSK #Multiple wounds and ecchymosis Patient is on a severe coagulopathic state and severe denutrition: poor prognosis, wound consult: supportive care consult SS and poison control Plan discussed with: Other (nurse) My Orders Orders - REESE NGUYỄN MD Procedure Category Date Status Time Chest Portable XY 09/30/24 Resulted 04:00 Date of Service: Sep 30, 2024 Billing Provider: REESE NGUYỄN MD Common Visit Codes: 88149-QRRPXISM CARE 30-74 MIN REESE NGUYỄN MD Sep 30, 2024 15:33
--- NOTE | 2024-09-30 22:49 | DVHPN2 ---
Progress Note - Dictate Date Seen: Sep 30, 2024 Has the PT tested + for MRSA If YES, has PT been informed?: No Medical Necessity Reason Pt with a Central, PICC or Fol: Yes The following are medically ne: Central Line, Clark Catheter Subjective Patient was seen and evaluated in follow up in the ICU. Patient is intubated and sedated on ventilator. 30% FiO2. The patient has excessive weeping of scrotal areas and LEs. HGB 8.4, HCT 24.2, BUN 56, GLOBE CHANGER 2.15, CA 6.2. Chest x-ray is unchanged. vital signs Vital Sign Date Time Temp Pulse Resp B/P (MAP) Pulse Ox O2 Delivery O2 Flow Rate FiO2 09/30/24 18:30 97.3 59 22 118/77 (91) 207.1 09/30/24 18:00 30 09/30/24 18:00 95 Mechanical Ventilator+ 09/28/24 08:00 0 Total Intake and Output 09/29/24 09/29/24 09/30/24 15:00 23:00 07:00 Intake Total 1444.2 ml 1344.574 ml 1370.564 ml Output Total 775 ml 800 ml Balance 1444.2 ml 569.574 ml 570.564 ml medications Current Medications Medications Dose Ordered Sig/Hair Route Start Time Stop Time Status Last Admin Dose Admin Midazolam HCl 50 ml @ 1 mls/hr Q24H IV 09/25/24 13:00 09/28/24 22:20 1 MLS/HR Fentanyl Citrate 250 ml @ 2.5 mls/hr Q24H IV 09/25/24 13:00 09/30/24 01:35 5 MLS/HR Vasopressin 20 units/Sodium Chloride 100 ml @ 9 mls/hr Q11H7M IV 09/25/24 19:00 09/30/24 04:04 6 MLS/HR Vancomycin HCl 0 ml @ 0 mls/hr UD IV 09/25/24 19:45 Pantoprazole Sodium 40 mg DAILY IV 09/26/24 11:00 09/30/24 10:30 40 MG Norepinephrine Bitartrate 32 mg/ Sodium Chloride 250 ml @ 0.938 mls/ hr Q24H IV 09/26/24 14:30 09/30/24 01:36 4.688 MLS/HR Hydrocortisone Sodium Succinate 50 mg Q12HR IV 09/26/24 22:00 09/30/24 10:30 50 MG Epinephrine HCl 250 ml @ 7.5 mls/hr Q24H IV 09/26/24 17:00 09/26/24 17:21 7.5 MLS/HR Enteral Nutritional Formula 1,000 ml 30ML/HR GT 09/27/24 11:30 09/29/24 20:27 1,000 ML Lactulose 30 ml BID PO 09/27/24 22:00 09/30/24 10:29 30 ML Sodium Chloride 1,000 ml @ 75 mls/hr [id number] IV 09/28/24 15:30 09/30/24 05:46 75 MLS/HR Acetylcysteine 5000 mg/Dextrose 1,025 ml @ 62.5 mls/hr Q16H IV 09/28/24 21:15 09/30/24 17:45 62.5 MLS/HR Meropenem 50 ml @ 17 mls/hr Q12HR IV 09/29/24 22:00 09/30/24 10:00 17 MLS/HR objective GENERAL: Ill appearing, intubated on ventilator. EYES: PERRL, EOMI. Anicteric. HENT: Moist mucous membranes. LUNGS: Decreased breath sounds. CARDIOVASCULAR: Regular rate and rhythm. ABDOMEN: Soft, nontender and nondistended. EXTREMITIES: No edema. SKIN: Warm, dry. laboratory and microbiology Laboratory Tests 09/30/24 02:25 Test 09/30/24 02:25 Range/Units Serum Glucose 108 H 74-106 mg/dL Problem List Septic shock with PNA/UTI and multiple organ failure. Acute Toxic/Metabolic Encephalopathy likely due to sepsis/Tylenol toxicity. NSTEMI type 2 likely due to above. New onset atrial fibrillation, likely due to electrolyte imbalance/sepsis. Distal AAA. DIC with acquired coagulopathy. Hypocalcemia. SANJAY probably due to VMN, worsening due to multiorgan failure. Hematuria due to coagulopathy in UA. Assessment/Plan Continued all current supportive medical care. IV antibiotics as ordered. Vasopressors for hemodynamic support. GI prophylactics. Additional plan as per the hospital course. Critical care time of 45 minutes provided to include time spent evaluation of patient at bedside, when appropriate patient/family education for diagnosis, treatment plan, review of pertinent medical information and discussion of care with specialty providers and PCP. Mechanical ventilator parameters, treatment and adjustments have personally been reviewed by me and treatment plan by acquisition analyst has also been reviewed. Dietary Evaluation Review Comments: Step 1. Tube feeding Vital HP. goal rate @40ml/hr providing 960kcal, 84g protein 803 ml free water; supporting 106% energy needs and 107% protein needs. Step 2. Increase Vital HP to 45ml/hr (94g protein and 1080 kcal, 903ml free water) when pt tolerates the 40ml/hr regimen. 3, Reassess needs and medical feasiblilty of PO feeding when pt is extubated. Expected Outcomes/Goals: support protein and energy needs and maintain current wt. Plan discussed with: Other ROSE CHEEK MD Sep 30, 2024 19:24
[2024-10-01] VITALS (111 sets, daily range): BP systolic 72–159; BP diastolic 45–107; PULSE 58–92; RESP 16–22; TEMP 97–99.3; O2SAT 76–100
[2024-10-01 03:53] LABS: Anion Gap 18 (5-15); BUN/Creatinine Ratio 27.2 (10.0-20.0); Carbon Dioxide 21 mmol/L (20-31); Potassium 3.7 mmol/L (3.5-5.1)
[2024-10-01 03:55] LABS: Hemoglobin 8.1 g/dL (13.5-17.5)
[2024-10-01 03:58] LABS: Hematocrit 23.4 % (41.0-53.0); Mean Corpuscular Hemoglobin 28.7 pg (28.0-32.0); Mean Corpuscular Volume 83.0 fL (80.0-100.0)
[2024-10-01 04:36] LABS: Alanine Aminotransferase 181 U/L (7-40); Albumin 1.7 g/dL (3.2-4.8); Alkaline Phosphatase 299 U/L (46-116); Bilirubin, Total 3.2 mg/dL (0.2-1.0); Blood Urea Nitrogen 61 mg/dL (9-23); Calcium 6.5 mg/dL (8.7-10.4); Chloride 94 mmol/L (98-107); Glucose 112 mg/dL (74-106); Sodium 133 mmol/L (136-145); Total Protein 3.3 g/dL (5.7-8.2)
[2024-10-01 05:01] LABS: Anisocytosis Slight; Ovalocytes MODE; Sickle Cells FEW; Total Cells Counted 100.0 (100)
--- NOTE | 2024-10-01 05:37 | DVH ---
CHEST RADIOGRAPH Indication: intubated Technique: Single frontal view of the chest was obtained COMPARISON: XY CHEST PORTABLE on DOS: 09/30/24, XY CHEST XRAY 1 VIEW on DOS: 09/29/24, XY CHEST XRAY 1 VIEW on DOS: 09/28/24, XY CHEST XRAY 1 VIEW on DOS: 09/27/24, XY CHEST XRAY 1 VIEW on DOS: 09/25/24 FINDINGS: Lines and Tubes: Endotracheal tube and enteric catheter in satisfactory position. Lungs: Multifocal airspace disease Pleura: Small bilateral pleural effusions. No pneumothorax. Cardiomediastinal contours: Unremarkable Bones: Unremarkable IMPRESSION: Lines and tubes in satisfactory position. No significant interval change.
[2024-10-01 06:52] LABS: Base Excess -6.4 mmol/L (-2.0-3.0)
--- NOTE | 2024-10-01 11:32 | DVHPN2 ---
Progress Note Date Seen: Oct 01, 2024 Has the PT tested + for MRSA If YES, has PT been informed?: No Medical Necessity Reason Pt with a Central, PICC or Fol: Yes The following are medically ne: Central Line, Clark Catheter Subjective Patient reports: No new complaints Review of Systems: Deferred Objective vital signs Vital Sign Date Time Temp Pulse Resp B/P (MAP) Pulse Ox O2 Delivery O2 Flow Rate FiO2 10/01/24 11:15 98.1 62 22 101/60 (74) 100 208.6 10/01/24 10:35 30 10/01/24 10:00 Mechanical Ventilator+ Total Intake and Output 09/30/24 09/30/24 10/01/24 15:00 23:00 07:00 Intake Total 1266.690 ml 1220.992 ml 727.122 ml Output Total 50 ml 50 ml Balance 1266.690 ml 1170.992 ml 677.122 ml medications Current Medications Medications Dose Ordered Sig/Hair Route Start Time Stop Time Status Last Admin Dose Admin Midazolam HCl 50 ml @ 1 mls/hr Q24H IV 09/25/24 13:00 09/28/24 22:20 1 MLS/HR Fentanyl Citrate 250 ml @ 2.5 mls/hr Q24H IV 09/25/24 13:00 09/30/24 01:35 5 MLS/HR Vasopressin 20 units/Sodium Chloride 100 ml @ 9 mls/hr Q11H7M IV 09/25/24 19:00 09/30/24 20:32 6 MLS/HR Vancomycin HCl 0 ml @ 0 mls/hr UD IV 09/25/24 19:45 Pantoprazole Sodium 40 mg DAILY IV 09/26/24 11:00 10/01/24 09:55 40 MG Norepinephrine Bitartrate 32 mg/ Sodium Chloride 250 ml @ 0.938 mls/ hr Q24H IV 09/26/24 14:30 09/30/24 01:36 4.688 MLS/HR Hydrocortisone Sodium Succinate 50 mg Q12HR IV 09/26/24 22:00 10/01/24 09:55 50 MG Epinephrine HCl 250 ml @ 7.5 mls/hr Q24H IV 09/26/24 17:00 09/26/24 17:21 7.5 MLS/HR Enteral Nutritional Formula 1,000 ml 30ML/HR GT 09/27/24 11:30 09/29/24 20:27 1,000 ML Lactulose 30 ml BID PO 09/27/24 22:00 10/01/24 09:55 30 ML Sodium Chloride 1,000 ml @ 75 mls/hr [id number] IV 09/28/24 15:30 10/01/24 11:11 75 MLS/HR Acetylcysteine 5000 mg/Dextrose 1,025 ml @ 62.5 mls/hr Q16H IV 09/28/24 21:15 09/30/24 17:45 62.5 MLS/HR Meropenem 50 ml @ 17 mls/hr Q12HR IV 09/29/24 22:00 10/01/24 09:56 17 MLS/HR Examination: GENERAL:Abnormal, LUNGS:Abnormal, CVS:Abnormal, ABDOMEN:Abnormal, SKIN:Abnormal laboratory and microbiology Laboratory Tests 10/01/24 02:43 Test 10/01/24 02:43 Range/Units Serum Glucose 112 H 74-106 mg/dL Microbiology Date/Time Source Procedure Growth Status 09/27/24 16:44 Voided Urine Urine Culture - Final Enterococcus faecalis Complete 09/27/24 13:10 Blood Blood Culture - Preliminary NO GROWTH AFTER 72 HOURS OF INCUBATION. Resulted 09/26/24 20:08 Nose MRSA Screen - Final Complete 09/25/24 12:40 Sputum Gram Stain - Final Complete 09/25/24 12:40 Sputum Respiratory Culture - Final Complete Problem List/Assessment/Plan Problem List/Assessment/Plan 79-year-old male admitted to the hospital due to unresponsiveness was admitted with a diagnosis of altered mental state in the setting of acetaminophen toxicity. Patient is currently in fulminant liver failure. Nephrology consulted for progressive worsening renal function. Previous renal function on admission was within normal limits which has gradually worsened Acute kidney injury multifactorial hemodynamically mediated Fulminant liver failure in the setting of acetaminophen toxicity Thrombocytopenia Sepsis , shock acidosis Severe protein calorie malnutrition Acute respiratory failure 5.5 cm AAA aortic aneurysm IV fluid strict I/O Avoid hypotension Maintain mean arterial pressure greater than 65 Treat electrolytes accordingly Patient has a very poor overall prognosis Overall is not a candidate for detention dialysis, family is planning for inpatient hospice and terminal wean potentially soon critically ill , critical care time 40mins Plan discussed with: Spouse Dietary Evaluation Review Comments: Step 1. Tube feeding Vital HP. goal rate @40ml/hr providing 960kcal, 84g protein 803 ml free water; supporting 106% energy needs and 107% protein needs. Step 2. Increase Vital HP to 45ml/hr (94g protein and 1080 kcal, 903ml free water) when pt tolerates the 40ml/hr regimen. 3, Reassess needs and medical feasiblilty of PO feeding when pt is extubated. Expected Outcomes/Goals: support protein and energy needs and maintain current wt. Critical Care Time (mins): 33 LINDY JESSICA MD Oct 01, 2024 11:32
[2024-10-01] MEDS ORDERED: cefTRIAXone 2GM/50ML D5W 50 ML IV SCH (17:00)
[2024-10-01] MEDS: VANCOMYCIN 500mg/100mL 100 ML IV ONE (17:22)
[2024-10-01] MEDS: cefTRIAXone 2GM/50ML D5W 50 ML IV SCH (18:10)
--- NOTE | 2024-10-01 18:17 | DVHPN2 ---
Progress Note - Dictate Date Seen: Oct 01, 2024 Has the PT tested + for MRSA If YES, has PT been informed?: No Medical Necessity Reason Pt with a Central, PICC or Fol: Yes The following are medically ne: Central Line, Clark Catheter Subjective Patient is still intubated and sedated High gastric residuals with NG tube output about 600 and on this morning Tube feedings are on hold Hemoglobin drifted down to 8.1 Persistent leukocytosis and thrombocytosis vital signs Vital Sign Date Time Temp Pulse Resp B/P (MAP) Pulse Ox O2 Delivery O2 Flow Rate FiO2 10/01/24 18:00 68 22 111/72 (85) 100 30 10/01/24 17:00 97.9 208.2 10/01/24 16:00 Mechanical Ventilator+ Total Intake and Output 09/30/24 09/30/24 10/01/24 15:00 23:00 07:00 Intake Total 1266.690 ml 1220.992 ml 727.122 ml Output Total 50 ml 50 ml Balance 1266.690 ml 1170.992 ml 677.122 ml medications Current Medications Medications Dose Ordered Sig/Hair Route Start Time Stop Time Status Last Admin Dose Admin Midazolam HCl 50 ml @ 1 mls/hr Q24H IV 09/25/24 13:00 09/28/24 22:20 1 MLS/HR Fentanyl Citrate 250 ml @ 2.5 mls/hr Q24H IV 09/25/24 13:00 09/30/24 01:35 5 MLS/HR Vasopressin 20 units/Sodium Chloride 100 ml @ 9 mls/hr Q11H7M IV 09/25/24 19:00 09/30/24 20:32 6 MLS/HR Vancomycin HCl 0 ml @ 0 mls/hr UD IV 09/25/24 19:45 Pantoprazole Sodium 40 mg DAILY IV 09/26/24 11:00 10/01/24 09:55 40 MG Norepinephrine Bitartrate 32 mg/ Sodium Chloride 250 ml @ 0.938 mls/ hr Q24H IV 09/26/24 14:30 09/30/24 01:36 4.688 MLS/HR Hydrocortisone Sodium Succinate 50 mg Q12HR IV 09/26/24 22:00 10/01/24 09:55 50 MG Epinephrine HCl 250 ml @ 7.5 mls/hr Q24H IV 09/26/24 17:00 09/26/24 17:21 7.5 MLS/HR Enteral Nutritional Formula 1,000 ml 30ML/HR GT 09/27/24 11:30 09/29/24 20:27 1,000 ML Lactulose 30 ml BID PO 09/27/24 22:00 10/01/24 09:55 30 ML Sodium Chloride 1,000 ml @ 75 mls/hr [id number] IV 09/28/24 15:30 10/01/24 11:11 75 MLS/HR Acetylcysteine 5000 mg/Dextrose 1,025 ml @ 62.5 mls/hr Q16H IV 09/28/24 21:15 09/30/24 17:45 62.5 MLS/HR Ceftriaxone Sodium/Dextrose 50 ml @ 50 mls/hr DAILY IV 10/01/24 18:00 10/01/24 18:10 50 MLS/HR objective General: Patient is intubated and sedated Chest: lung peraza clear to auscultation Heart: RRR, no murmur Abdomen: non-distended, soft, +BS laboratory and microbiology Laboratory Tests 10/01/24 02:43 Test 10/01/24 02:43 Range/Units Serum Glucose 112 H 74-106 mg/dL Problems(with codes): (1) Tylenol toxicity (2) Metabolic encephalopathy (3) Sepsis (4) Hypoglycemia Prognosis Plan Patient's extended family has arrived in the family is considering terminal wean [facility] was notified and patient is considered for organ donation Overall his prognosis remains guarded I will follow up patient with you as needed Dietary Evaluation Review Comments: Step 1. Tube feeding Vital HP. goal rate @40ml/hr providing 960kcal, 84g protein 803 ml free water; supporting 106% energy needs and 107% protein needs. Step 2. Increase Vital HP to 45ml/hr (94g protein and 1080 kcal, 903ml free water) when pt tolerates the 40ml/hr regimen. 3, Reassess needs and medical feasiblilty of PO feeding when pt is extubated. Expected Outcomes/Goals: support protein and energy needs and maintain current wt. Plan discussed with: Other (ICU Nurse) VETO TOLEDO MD Oct 01, 2024 18:17
--- NOTE | 2024-10-01 22:58 | DVHPNRES ---
Progress Note Date Seen: Oct 01, 2024 Resident Creating Document: IRIS QUIJANO RESIDENT Has the PT tested + for MRSA If YES, has PT been informed?: No Medical Necessity Reason Pt with a Central, PICC or Fol: Yes The following are medically ne: Central Line, Clark Catheter Subjective Review of Systems 79-year-old cachectic male with PMHx of left hip fracture s/p hip replacement and functional decline, found unresponsive at home by on 09/25/24. Last known normal was reportedly 0000 the same day. On EMS arrival, he was in severe respiratory distress and required intubation en route with a 7.0 ETT. Upon ED arrival, he was unresponsive and hypotensive; he was started on vasopressors and IV fluids. Initial labs were notable for profound metabolic acidosis, elevated transaminases, acute kidney injury, elevated lactate (7.8), and leukocytosis with bandemia. UA suggestive of UTI. Family reports chronic anorexia and likely [employer] overuse for chronic left hip pain. No known drug allergies. Currently requiring multiple vasopressors and mechanical ventilation in ICU. Past Medical History: Left femur fracture s/p hip replacement Bedbound for several months Possible COPD or respiratory disease (family unsure) Possible history of DM [employer] abuse for chronic pain Surgical History: Left hip replacement Medications: [employer] (home use per family) Prednisone (prior use per family, unclear duration/dose) Allergies: No known drug allergies Social History: Last alcohol intake Apr 2021, active smoker Lives at home with Denies illicit drug use (per [employer] overuse) 09/27/24: ct scan abdomen/chest: Bilateral pulmonary airspace consolidation most pronounced within the left lower lobe, Severe pulmonary emphysematous changes. Right lower lobe nodularity which is likely secondary to underlying infection /pneumonia, Small bilateral pleural effusions, Abdominal aortic aneurysm measuring 5.6 cm in diameter, There is a right common femoral vein central venous catheter with the catheter tip projecting into the region deep pelvis, likely within the right internal iliac vein branch, Gallbladder hyperdensity/ sludge, Small amount of ascites fluid, Large volume stool in the rectum, start feedings, GI consult, ammonia levels were high, lactulose started, leg arterial US showed severe PAD, we will continue treatment but prognosis is poor 09/28/24: over night patient had atrial fibrillation, amiodarone was started per night ceja and cardiology was consulted, cardiology dc amiodarone drip, no need of further rate control since his HR 65, extensive discussion with and son, possible transfer to comfort measures but they want to speak with his other children, patient has DIC, platelets are trending down, anuric, nephrology is consulted, fio2 is lower, levophed 20, versed 0.03, tylenol levels 29, blood culture came positive for providencia alcalifaciens sensitive to meropenem, poison control will contacted due to tylenol toxicity we will continue acetylcysteine IV drip, calcium is low, calcium IV was given 10/01/24: during the weekend, platelets were trending down, new petechia showed up in the forehead and arms, kidney function is trending low, we still requiring levophed and vasopressin for circulatory support, due to poor prognosis and no bridge to recovery, extensive discussion was held with Michelle, and Religious, son, also his grandchildren were present, it was decided to transfer the patient to comfort measures and terminal weaning tomorrow 10/02/24 at 8 am, new code status was signed Objective vital signs Vital Sign Date Time Temp Pulse Resp B/P (MAP) Pulse Ox O2 Delivery O2 Flow Rate FiO2 10/01/24 22:30 99.3 69 22 91/58 (69) 100 210.7 10/01/24 22:18 Mechanical Ventilator 10/01/24 22:18 30 30 Total Intake and Output 09/30/24 09/30/24 10/01/24 15:00 23:00 07:00 Intake Total 1266.690 ml 1220.992 ml 727.122 ml Output Total 50 ml 50 ml Balance 1266.690 ml 1170.992 ml 677.122 ml medications Current Medications Medications Dose Ordered Sig/Hair Route Start Time Stop Time Status Last Admin Dose Admin Midazolam HCl 50 ml @ 1 mls/hr Q24H IV 09/25/24 13:00 09/28/24 22:20 1 MLS/HR Fentanyl Citrate 250 ml @ 2.5 mls/hr Q24H IV 09/25/24 13:00 09/30/24 01:35 5 MLS/HR Vasopressin 20 units/Sodium Chloride 100 ml @ 9 mls/hr Q11H7M IV 09/25/24 19:00 10/01/24 20:34 3 MLS/HR Vancomycin HCl 0 ml @ 0 mls/hr UD IV 09/25/24 19:45 Pantoprazole Sodium 40 mg DAILY IV 09/26/24 11:00 10/01/24 09:55 40 MG Norepinephrine Bitartrate 32 mg/ Sodium Chloride 250 ml @ 0.938 mls/ hr Q24H IV 09/26/24 14:30 09/30/24 01:36 4.688 MLS/HR Hydrocortisone Sodium Succinate 50 mg Q12HR IV 09/26/24 22:00 10/01/24 20:59 50 MG Epinephrine HCl 250 ml @ 7.5 mls/hr Q24H IV 09/26/24 17:00 09/26/24 17:21 7.5 MLS/HR Enteral Nutritional Formula 1,000 ml 30ML/HR GT 09/27/24 11:30 09/29/24 20:27 1,000 ML Lactulose 30 ml BID PO 09/27/24 22:00 10/01/24 09:55 30 ML Sodium Chloride 1,000 ml @ 75 mls/hr [id number] IV 09/28/24 15:30 10/01/24 11:11 75 MLS/HR Acetylcysteine 5000 mg/Dextrose 1,025 ml @ 62.5 mls/hr Q16H IV 09/28/24 21:15 09/30/24 17:45 62.5 MLS/HR Ceftriaxone Sodium/Dextrose 50 ml @ 50 mls/hr DAILY IV 10/01/24 18:00 10/01/24 18:10 50 MLS/HR Examination General: Cachectic, severely distressed, intubated HEENT: Normal Neck: No JVD CV: Regular rate/rhythm, no murmurs Resp: Intubated, bilateral breath sounds Abdomen: Soft, non-tender, thrill in abdomen, AAA 5.6cm Extremities: No edema, no DVT signs Neuro: GCS not assessable due to sedation; no focal findings Skin: Pale, multiple pressure ulcers in the back, multiple ecchymosis, new petechia showed up in the forehead and arms Lines/Devices: Intubated with 7.0 ETT at 23 cm Central line: Right femoral triple lumen Clark catheter in place laboratory and microbiology Laboratory Tests 10/01/24 02:43 Test 10/01/24 02:43 Range/Units Serum Glucose 112 H 74-106 mg/dL Microbiology Date/Time Source Procedure Growth Status 09/27/24 16:44 Voided Urine Urine Culture - Final Enterococcus faecalis Complete 09/27/24 13:10 Blood Blood Culture - Preliminary NO GROWTH AFTER 72 HOURS OF INCUBATION. Resulted 09/26/24 20:08 Nose MRSA Screen - Final Complete 09/25/24 12:40 Sputum Gram Stain - Final Complete 09/25/24 12:40 Sputum Respiratory Culture - Final Complete Problem List/Assessment/Plan Problem List/Assessment/Plan Neurology #Acute Toxic/Metabolic Encephalopathy: Likely multifactorial (shock liver, SANJAY, sepsis, tylenol overdose) #Moderate chronic microvascular ischemic changes. #Mild global cerebral volume loss fentanyl and midazolam RASS-3 ID #Bacteriemia #Pneumonia #UTI ceftriaxone and vancomycin 09/28/24: ct scan abdomen/chest: Bilateral pulmonary airspace consolidation most pronounced within the left lower lobe, Severe pulmonary emphysematous changes. Right lower lobe nodularity which is likely secondary to underlying infection /pneumonia, Small bilateral pleural effusions, Abdominal aortic aneurysm measuring 5.6 cm in diameter, There is a right common femoral vein central venous catheter with the catheter tip projecting into the region deep pelvis, likely within the right internal iliac vein branch, Gallbladder hyperdensity/ sludge, Small amount of ascites fluid, Large volume stool in the rectum, start feedings, GI consult, ammonia levels were high, lactulose started, leg arterial US showed severe PAD, we will continue treatment but prognosis is poor 09/28/24: over night patient had atrial fibrillation, amiodarone was started per night team and cardiology was consulted, cardiology dc amiodarone drip, no need of further rate control since his HR 65, extensive discussion with and son, possible transfer to comfort measures but they want to speak with his other children, patient has DIC, platelets are trending down, anuric, nephrology is consulted, fio2 is lower, levophed 20, versed 0.03, tylenol levels 29, blood culture came positive for providencia alcalifaciens sensitive to meropenem, poison control will contacted due to tylenol toxicity we will continue acetylcysteine IV drip, calcium is low, calcium IV was given blood culture positive for staph coagulase negative and providencia alcalifaciens 10/01/24: during the weekend, platelets were trending down, new petechia showed up in the forehead and arms, kidney function is trending low, we still requiring levophed and vasopressin for circulatory support, due to poor prognosis and no bridge to recovery, extensive discussion was held with Michelle, and Religious, son, also his grandchildren were present, it was decided to transfer the patient to comfort measures and terminal weaning tomorrow 10/02/24 at 8 am, new code status was signed Cardiology #Multiorgan failure #Septic shock due to bacteremia, UTI, possible pneumonia, multiple pressure wounds, liver failure #NSTEMI type 2 likely due to demand ischemia #New onset atrial fibrillation #New onset heart failure with diastolic dysfunction #Pulmonary hypertension started on IV fluids bicarb drip, norepinephrine, vasopressin and epinephrine hydrocortisone IV echo: LVEF 55-60%, mild LVH Right ventricle mildly dilated, normal function Interatrial septum is aneurysmal negative bubble study for shunt. Moderate pulmonary hypertension, RVSP 50-65 mmgh no need of rate or rhythm control dc amiodarone drip ns 75cc/h right now on levophed and vasopressin Respiratory #Acute respiratory failure due to septic shock, COPD exacerbation and pneumonia #Respiratory acidosis resolving #Pneumonia gram+/ gram - #COPD exacerbation #Bilateral pleural effusions Intubated for respiratory distress; AC/VC mode. ceftriaxone + vancomycin cultures Normal Oropharyngeal Melinda Fio2 trending down high risk of bleeding, no thoracentesis GI #Acute liver failure due to Tylenol toxicity #Shock liver #Severe malnutrition and cachexia #distal AAA #Possible GI bleeding #Severe coagulopathy #Gallbladder hyperdensity/ sludge #Hyperammonemia #Anemia normochromic, normocytic Started on acetylcysteine protocol, today levels 7 per posion control, stop acetylcysteine Vitamin K GI consult continue feedings hb trending down lactulose Metabolic #Hypoglycemia at admission #Severe lactic acidosis #Severe metabolic acidosis #Possible hypothyroidism #Hypocalcemia due to high risk of arrhythmia: no T4 supplementation for now . TSH 7 calcium gluconate given Renal #SANJAY probably due to VMN, worsening due to multiorgan failure #Complicated UTI due to enterococcus faecalis #Hematuria due to coagulopathy in UA anuria stop bicarb drip 75cc/h ns 75cc/h ceftraixone + vanc Heme/onc #Leukocytosis with bands #Anemia due to possible chronic disease #Thrombocytopenia #Severe coagulopathy #DIC hb trending down, but there is a concern of GI bleeding due to dark NG tube output MSK #Multiple wounds and ecchymosis Patient is on a severe coagulopathic state and severe denutrition: poor prognosis, wound consult: supportive care consult SS and poison control Case discussed with Dr Lechuga Time spent of critical care 103 min, excluding procedures, during the weekend, platelets were trending down, new petechia showed up in the forehead and arms, kidney function is trending low, we are still requiring levophed and vasopressin for circulatory support, due to poor prognosis and no bridge to recovery, extensive discussion was held with Michelle, and Religious, son, also his grandchildren were present, it was decided to transfer the patient to comfort measures and terminal weaning tomorrow 10/02/24 at 8 am, new code status was signed Plan discussed with: Spouse, Son, Other My Orders My Orders Orders - IRIS QUIJANO Procedure Category Date Status Time Abg W/ Co-Ox RT 10/01/24 Logged 05:39 Ceftriaxone 2gm/50ml PHA 10/01/24 In Process D5w (Rocephin 2gm/5 18:00 Dietary Evaluation Review Comments: Step 1. Tube feeding Vital HP. goal rate @40ml/hr providing 960kcal, 84g protein 803 ml free water; supporting 106% energy needs and 107% protein needs. Step 2. Increase Vital HP to 45ml/hr (94g protein and 1080 kcal, 903ml free water) when pt tolerates the 40ml/hr regimen. 3, Reassess needs and medical feasiblilty of PO feeding when pt is extubated. Expected Outcomes/Goals: support protein and energy needs and maintain current wt. Date of Service: Oct 01, 2024 Billing Provider: RUCHI LECHUGA MD Common Visit Codes: 34387-MQZPBJSW CARE 30-74 MIN, 35837-[id number] CARE-EACH +30MIN IRIS QUIJANO RESIDENT Oct 01, 2024 22:58 RUCHI LECHUGA MD Oct 02, 2024 15:47
--- NOTE | 2024-10-01 23:06 | DVHPN2 ---
Progress Note - Dictate Date Seen: Oct 01, 2024 Has the PT tested + for MRSA If YES, has PT been informed?: No Medical Necessity Reason Pt with a Central, PICC or Fol: Yes The following are medically ne: Central Line, Clark Catheter Subjective Patient was seen and evaluated in follow up in the ICU. Patient is intubated and sedated on ventilator. 30% FiO2. The patient has high gastric residuals with NG tube output about 600 and on this morning. Tube feedings are on hold. WBC 12.3, HGB 8.1, HCT 23.4, BUN 61, [employer] 2.24. vital signs Vital Sign Date Time Temp Pulse Resp B/P (MAP) Pulse Ox O2 Delivery O2 Flow Rate FiO2 10/01/24 22:30 99.3 69 22 91/58 (69) 100 210.7 10/01/24 22:18 Mechanical Ventilator 10/01/24 22:18 30 30 Total Intake and Output 09/30/24 09/30/24 10/01/24 15:00 23:00 07:00 Intake Total 1266.690 ml 1220.992 ml 727.122 ml Output Total 50 ml 50 ml Balance 1266.690 ml 1170.992 ml 677.122 ml medications Current Medications Medications Dose Ordered Sig/Hair Route Start Time Stop Time Status Last Admin Dose Admin Midazolam HCl 50 ml @ 1 mls/hr Q24H IV 09/25/24 13:00 09/28/24 22:20 1 MLS/HR Fentanyl Citrate 250 ml @ 2.5 mls/hr Q24H IV 09/25/24 13:00 09/30/24 01:35 5 MLS/HR Vasopressin 20 units/Sodium Chloride 100 ml @ 9 mls/hr Q11H7M IV 09/25/24 19:00 10/01/24 20:34 3 MLS/HR Vancomycin HCl 0 ml @ 0 mls/hr UD IV 09/25/24 19:45 Pantoprazole Sodium 40 mg DAILY IV 09/26/24 11:00 10/01/24 09:55 40 MG Norepinephrine Bitartrate 32 mg/ Sodium Chloride 250 ml @ 0.938 mls/ hr Q24H IV 09/26/24 14:30 09/30/24 01:36 4.688 MLS/HR Hydrocortisone Sodium Succinate 50 mg Q12HR IV 09/26/24 22:00 10/01/24 20:59 50 MG Epinephrine HCl 250 ml @ 7.5 mls/hr Q24H IV 09/26/24 17:00 09/26/24 17:21 7.5 MLS/HR Enteral Nutritional Formula 1,000 ml 30ML/HR GT 09/27/24 11:30 09/29/24 20:27 1,000 ML Lactulose 30 ml BID PO 09/27/24 22:00 10/01/24 09:55 30 ML Sodium Chloride 1,000 ml @ 75 mls/hr [id number] IV 09/28/24 15:30 10/01/24 11:11 75 MLS/HR Acetylcysteine 5000 mg/Dextrose 1,025 ml @ 62.5 mls/hr Q16H IV 09/28/24 21:15 09/30/24 17:45 62.5 MLS/HR Ceftriaxone Sodium/Dextrose 50 ml @ 50 mls/hr DAILY IV 10/01/24 18:00 10/01/24 18:10 50 MLS/HR objective GENERAL: Ill appearing, intubated on ventilator. EYES: PERRL, EOMI. Anicteric. HENT: Moist mucous membranes. LUNGS: Decreased breath sounds. CARDIOVASCULAR: Regular rate and rhythm. ABDOMEN: Soft, nontender and nondistended. EXTREMITIES: No edema. SKIN: Warm, dry. laboratory and microbiology Laboratory Tests 10/01/24 02:43 Test 10/01/24 02:43 Range/Units Serum Glucose 112 H 74-106 mg/dL Problem List Septic shock with PNA/UTI and multiple organ failure. Acute Toxic/Metabolic Encephalopathy likely due to sepsis/Tylenol toxicity. NSTEMI type 2 likely due to above. New onset atrial fibrillation, likely due to electrolyte imbalance/sepsis. Distal AAA. DIC with acquired coagulopathy. Hypocalcemia. SANJAY probably due to VMN, worsening due to multiorgan failure. Hematuria due to coagulopathy in UA. Assessment/Plan Continued all current supportive medical care. IV antibiotics as ordered. Vasopressors for hemodynamic support. GI prophylactics. Additional plan as per the hospital course. Critical care time of 45 minutes provided to include time spent evaluation of patient at bedside, when appropriate patient/family education for diagnosis, treatment plan, review of pertinent medical information and discussion of care with specialty providers and PCP. Mechanical ventilator parameters, treatment and adjustments have personally been reviewed by me and treatment plan by inset cutter has also been reviewed. Dietary Evaluation Review Comments: Step 1. Tube feeding Vital HP. goal rate @40ml/hr providing 960kcal, 84g protein 803 ml free water; supporting 106% energy needs and 107% protein needs. Step 2. Increase Vital HP to 45ml/hr (94g protein and 1080 kcal, 903ml free water) when pt tolerates the 40ml/hr regimen. 3, Reassess needs and medical feasiblilty of PO feeding when pt is extubated. Expected Outcomes/Goals: support protein and energy needs and maintain current wt. Plan discussed with: Other ROSE CHEEK MD Oct 01, 2024 23:06
[2024-10-02] VITALS (107 sets, daily range): BP systolic 82–139; BP diastolic 43–102; PULSE 57–143; RESP 9–24; TEMP 96.3–99.1; O2SAT 66–100
[2024-10-02] MEDS ORDERED: LORazepam 2MG/ML-1ML VIAL IV PRN (07:45)
[2024-10-02] MEDS ORDERED: VANCOMYCIN PER PHARMACY 0 MG IV SCH (09:15)
[2024-10-02] MEDS: cefTRIAXone 2GM/50ML D5W 50 ML IV SCH (09:49)
--- NOTE | 2024-10-02 11:14 | DVHPN2 ---
Progress Note Date Seen: Oct 02, 2024 Has the PT tested + for MRSA If YES, has PT been informed?: No Medical Necessity Reason Pt with a Central, PICC or Fol: Yes The following are medically ne: Central Line, Clark Catheter Objective vital signs Vital Sign Date Time Temp Pulse Resp B/P (MAP) Pulse Ox O2 Delivery O2 Flow Rate FiO2 10/02/24 10:15 98.4 125 22 139/102 (114) 100 209.1 10/02/24 10:00 Mechanical Ventilator+ 30 30 Total Intake and Output 10/01/24 10/01/24 10/02/24 15:00 23:00 07:00 Intake Total 751.941 ml 831.504 ml 681.504 ml Output Total 100 ml 50 ml Balance 751.941 ml 731.504 ml 631.504 ml medications Current Medications Medications Dose Ordered Sig/Hair Route Start Time Stop Time Status Last Admin Dose Admin Fentanyl Citrate 250 ml @ 2.5 mls/hr Q24H IV 09/25/24 13:00 09/30/24 01:35 5 MLS/HR Vasopressin 20 units/Sodium Chloride 100 ml @ 9 mls/hr Q11H7M IV 09/25/24 19:00 10/01/24 20:34 3 MLS/HR Norepinephrine Bitartrate 32 mg/ Sodium Chloride 250 ml @ 0.938 mls/ hr Q24H IV 09/26/24 14:30 09/30/24 01:36 4.688 MLS/HR Morphine Sulfate 1 mg Q1HP PRN IV 10/02/24 07:45 Lorazepam 1 mg Q1HP PRN IV 10/02/24 07:45 Ceftriaxone Sodium/Dextrose 50 ml @ 50 mls/hr DAILY IV 10/02/24 09:15 10/02/24 09:49 50 MLS/HR Vancomycin HCl 0 ml @ 0 mls/hr UD IV 10/02/24 09:15 laboratory and microbiology Laboratory Tests 10/02/24 02:47 10/01/24 02:43 Test 10/01/24 02:43 Range/Units Serum Glucose 112 H 74-106 mg/dL Microbiology Date/Time Source Procedure Growth Status 09/27/24 16:44 Voided Urine Urine Culture - Final Enterococcus faecalis Complete 09/27/24 13:10 Blood Blood Culture - Preliminary NO GROWTH AFTER 72 HOURS OF INCUBATION. Resulted 09/26/24 20:08 Nose MRSA Screen - Final Complete 09/25/24 12:40 Sputum Gram Stain - Final Complete 09/25/24 12:40 Sputum Respiratory Culture - Final Complete Problem List/Assessment/Plan Problem List/Assessment/Plan 79-year-old male admitted to the hospital due to unresponsiveness was admitted with a diagnosis of altered mental state in the setting of acetaminophen toxicity. Patient is currently in fulminant liver failure. Nephrology consulted for progressive worsening renal function. Previous renal function on admission was within normal limits which has gradually worsened Acute kidney injury multifactorial hemodynamically mediated Fulminant liver failure in the setting of acetaminophen toxicity Thrombocytopenia Sepsis , shock acidosis Severe protein calorie malnutrition Acute respiratory failure 5.5 cm AAA aortic aneurysm IV fluid strict I/O Avoid hypotension Maintain mean arterial pressure greater than 65 Treat electrolytes accordingly Patient has a very poor overall prognosis Overall is not a candidate for intermediate dialysis, family is planning for inpatient hospice and terminal wean potentially soon critically ill , critical care time 40mins Plan discussed with: Patient Dietary Evaluation Review Comments: Step 1. Tube feeding Vital HP. goal rate @40ml/hr providing 960kcal, 84g protein 803 ml free water; supporting 106% energy needs and 107% protein needs. Step 2. Increase Vital HP to 45ml/hr (94g protein and 1080 kcal, 903ml free water) when pt tolerates the 40ml/hr regimen. 3, Reassess needs and medical feasiblilty of PO feeding when pt is extubated. Expected Outcomes/Goals: support protein and energy needs and maintain current wt. LINDY JESSICA MD Oct 02, 2024 11:14
--- NOTE | 2024-10-02 17:03 | DVHPN2 ---
Progress Note - Dictate Date Seen: Oct 02, 2024 Has the PT tested + for MRSA If YES, has PT been informed?: No Medical Necessity Reason Pt with a Central, PICC or Fol: Yes The following are medically ne: Central Line, Clark Catheter Subjective Patient was seen and evaluated in follow up in the ICU. Patient is intubated and sedated on ventilator. 30% FiO2.Family was at bedside earlier today. Patients spouse is considering compassionate extubation in 2 days once more family to come see the patient. Transformation Lead 2.31. vital signs Vital Sign Date Time Temp Pulse Resp B/P (MAP) Pulse Ox O2 Delivery O2 Flow Rate FiO2 10/02/24 16:15 98.8 84 22 97/60 (72) 100 209.8 10/02/24 16:02 30 10/02/24 16:00 Mechanical Ventilator+ Total Intake and Output 10/01/24 10/01/24 10/02/24 15:00 23:00 07:00 Intake Total 751.941 ml 831.504 ml 681.504 ml Output Total 100 ml 50 ml Balance 751.941 ml 731.504 ml 631.504 ml medications Current Medications Medications Dose Ordered Sig/Hair Route Start Time Stop Time Status Last Admin Dose Admin Fentanyl Citrate 250 ml @ 2.5 mls/hr Q24H IV 09/25/24 13:00 09/30/24 01:35 5 MLS/HR Vasopressin 20 units/Sodium Chloride 100 ml @ 9 mls/hr Q11H7M IV 09/25/24 19:00 10/01/24 20:34 3 MLS/HR Norepinephrine Bitartrate 32 mg/ Sodium Chloride 250 ml @ 0.938 mls/ hr Q24H IV 09/26/24 14:30 09/30/24 01:36 4.688 MLS/HR Morphine Sulfate 1 mg Q1HP PRN IV 10/02/24 07:45 Lorazepam 1 mg Q1HP PRN IV 10/02/24 07:45 Ceftriaxone Sodium/Dextrose 50 ml @ 50 mls/hr DAILY IV 10/02/24 09:15 10/02/24 09:49 50 MLS/HR Vancomycin HCl 0 ml @ 0 mls/hr UD IV 10/02/24 09:15 objective GENERAL: Ill appearing, intubated on ventilator. EYES: PERRL, EOMI. Anicteric. HENT: Moist mucous membranes. LUNGS: Decreased breath sounds. CARDIOVASCULAR: Regular rate and rhythm. ABDOMEN: Soft, nontender and nondistended. EXTREMITIES: No edema. SKIN: Warm, dry. laboratory and microbiology Laboratory Tests 10/02/24 02:47 10/01/24 02:43 Test 10/01/24 02:43 Range/Units Serum Glucose 112 H 74-106 mg/dL Problem List Septic shock with PNA/UTI and multiple organ failure. Acute Toxic/Metabolic Encephalopathy likely due to sepsis/Tylenol toxicity. NSTEMI type 2 likely due to above. New onset atrial fibrillation, likely due to electrolyte imbalance/sepsis. Distal AAA. DIC with acquired coagulopathy. Hypocalcemia. SANJAY probably due to VMN, worsening due to multiorgan failure. Hematuria due to coagulopathy in UA. Assessment/Plan Continued all current supportive medical care. IV antibiotics as ordered. Morphine for pain management. Vasopressors for hemodynamic support. GI prophylactics. Additional plan as per the hospital course. Critical care time of 45 minutes provided to include time spent evaluation of patient at bedside, when appropriate patient/family education for diagnosis, treatment plan, review of pertinent medical information and discussion of care with specialty providers and PCP. Mechanical ventilator parameters, treatment and adjustments have personally been reviewed by me and treatment plan by commercial announcer has also been reviewed. Dietary Evaluation Review Comments: Step 1. Tube feeding Vital HP. goal rate @40ml/hr providing 960kcal, 84g protein 803 ml free water; supporting 106% energy needs and 107% protein needs. Step 2. Increase Vital HP to 45ml/hr (94g protein and 1080 kcal, 903ml free water) when pt tolerates the 40ml/hr regimen. 3, Reassess needs and medical feasiblilty of PO feeding when pt is extubated. Expected Outcomes/Goals: support protein and energy needs and maintain current wt. Plan discussed with: ROSE Ibrahim MD Oct 02, 2024 17:03
--- NOTE | 2024-10-02 17:58 | DVHPNRES ---
Progress Note Date Seen: Oct 02, 2024 Resident Creating Document: RIIS QUIJANO RESIDENT Has the PT tested + for MRSA If YES, has PT been informed?: No Medical Necessity Reason Pt with a Central, PICC or Fol: Yes The following are medically ne: Central Line, Clark Catheter Subjective Review of Systems 79-year-old cachectic male with PMHx of left hip fracture s/p hip replacement and functional decline, found unresponsive at home by on 09/25/24. Last known normal was reportedly 0000 the same day. On EMS arrival, he was in severe respiratory distress and required intubation en route with a 7.0 ETT. Upon ED arrival, he was unresponsive and hypotensive; he was started on vasopressors and IV fluids. Initial labs were notable for profound metabolic acidosis, elevated transaminases, acute kidney injury, elevated lactate (7.8), and leukocytosis with bandemia. UA suggestive of UTI. Family reports chronic anorexia and likely Idalou overuse for chronic left hip pain. No known drug allergies. Currently requiring multiple vasopressors and mechanical ventilation in ICU. Past Medical History: Left femur fracture s/p hip replacement Bedbound for several months Possible COPD or respiratory disease (family unsure) Possible history of DM Idalou abuse for chronic pain Surgical History: Left hip replacement Medications: Idalou (home use per family) Prednisone (prior use per family, unclear duration/dose) Allergies: No known drug allergies Social History: Last alcohol intake Apr 2021, active smoker Lives at home with Denies illicit drug use (per Idalou overuse) 09/27/24: ct scan abdomen/chest: Bilateral pulmonary airspace consolidation most pronounced within the left lower lobe, Severe pulmonary emphysematous changes. Right lower lobe nodularity which is likely secondary to underlying infection /pneumonia, Small bilateral pleural effusions, Abdominal aortic aneurysm measuring 5.6 cm in diameter, There is a right common femoral vein central venous catheter with the catheter tip projecting into the region deep pelvis, likely within the right internal iliac vein branch, Gallbladder hyperdensity/ sludge, Small amount of ascites fluid, Large volume stool in the rectum, start feedings, GI consult, ammonia levels were high, lactulose started, leg arterial US showed severe PAD, we will continue treatment but prognosis is poor 09/28/24: over night patient had atrial fibrillation, amiodarone was started per night ceja and cardiology was consulted, cardiology dc amiodarone drip, no need of further rate control since his HR 65, extensive discussion with and son, possible transfer to comfort measures but they want to speak with his other children, patient has DIC, platelets are trending down, anuric, nephrology is consulted, fio2 is lower, levophed 20, versed 0.03, tylenol levels 29, blood culture came positive for providencia alcalifaciens sensitive to meropenem, poison control will contacted due to tylenol toxicity we will continue acetylcysteine IV drip, calcium is low, calcium IV was given 10/01/24: during the weekend, platelets were trending down, new petechia showed up in the forehead and arms, kidney function is trending low, we still requiring levophed and vasopressin for circulatory support, due to poor prognosis and no bridge to recovery, extensive discussion was held with Michelle, and Gnosticism, son, also his grandchildren were present, it was decided to transfer the patient to comfort measures and terminal weaning tomorrow 10/02/24 at 8 am, new code status was signed 10/02/24: family is not ready for terminal weaning today, AB were restarted, patient still on pressors and sedation, new extensive discussion was held with his and tow children, the extreme poor prognosis and the multi organ failure were addressed, possible terminal weaning tomorrow Objective vital signs Vital Sign Date Time Temp Pulse Resp B/P (MAP) Pulse Ox O2 Delivery O2 Flow Rate FiO2 10/02/24 17:17 98/65 10/02/24 16:15 98.8 84 22 100 209.8 10/02/24 16:02 30 10/02/24 16:00 Mechanical Ventilator+ Total Intake and Output 10/01/24 10/01/24 10/02/24 15:00 23:00 07:00 Intake Total 751.941 ml 831.504 ml 681.504 ml Output Total 100 ml 50 ml Balance 751.941 ml 731.504 ml 631.504 ml medications Current Medications Medications Dose Ordered Sig/Hair Route Start Time Stop Time Status Last Admin Dose Admin Fentanyl Citrate 250 ml @ 2.5 mls/hr Q24H IV 09/25/24 13:00 09/30/24 01:35 5 MLS/HR Vasopressin 20 units/Sodium Chloride 100 ml @ 9 mls/hr Q11H7M IV 09/25/24 19:00 10/02/24 17:17 6 MLS/HR Norepinephrine Bitartrate 32 mg/ Sodium Chloride 250 ml @ 0.938 mls/ hr Q24H IV 09/26/24 14:30 09/30/24 01:36 4.688 MLS/HR Morphine Sulfate 1 mg Q1HP PRN IV 10/02/24 07:45 Lorazepam 1 mg Q1HP PRN IV 10/02/24 07:45 Ceftriaxone Sodium/Dextrose 50 ml @ 50 mls/hr DAILY IV 10/02/24 09:15 10/02/24 09:49 50 MLS/HR Vancomycin HCl 0 ml @ 0 mls/hr UD IV 10/02/24 09:15 Examination General: Cachectic, severely distressed, intubated HEENT: Normal Neck: No JVD CV: Regular rate/rhythm, no murmurs Resp: Intubated, bilateral breath sounds Abdomen: Soft, non-tender, thrill in abdomen, AAA 5.6cm Extremities: No edema, no DVT signs Neuro: GCS not assessable due to sedation; no focal findings Skin: Pale, multiple pressure ulcers in the back, multiple ecchymosis, new petechia showed up in the forehead and arms Lines/Devices: Intubated with 7.0 ETT at 23 cm Central line: Right femoral triple lumen Clark catheter in place laboratory and microbiology Laboratory Tests 10/02/24 02:47 10/01/24 02:43 Test 10/01/24 02:43 Range/Units Serum Glucose 112 H 74-106 mg/dL Microbiology Date/Time Source Procedure Growth Status 09/27/24 16:44 Voided Urine Urine Culture - Final Enterococcus faecalis Complete 09/27/24 13:10 Blood Blood Culture - Final NO GROWTH AFTER 5 DAYS OF INCUBATION. Complete 09/26/24 20:08 Nose MRSA Screen - Final Complete 09/25/24 12:40 Sputum Gram Stain - Final Complete 09/25/24 12:40 Sputum Respiratory Culture - Final Complete Problem List/Assessment/Plan Problem List/Assessment/Plan Neurology #Acute Toxic/Metabolic Encephalopathy: Likely multifactorial (shock liver, SANJAY, sepsis, tylenol overdose) #Moderate chronic microvascular ischemic changes. #Mild global cerebral volume loss fentanyl and midazolam RASS-3 ID #Bacteriemia #Pneumonia #UTI ceftriaxone and vancomycin 09/28/24: ct scan abdomen/chest: Bilateral pulmonary airspace consolidation most pronounced within the left lower lobe, Severe pulmonary emphysematous changes. Right lower lobe nodularity which is likely secondary to underlying infection /pneumonia, Small bilateral pleural effusions, Abdominal aortic aneurysm measuring 5.6 cm in diameter, There is a right common femoral vein central venous catheter with the catheter tip projecting into the region deep pelvis, likely within the right internal iliac vein branch, Gallbladder hyperdensity/ sludge, Small amount of ascites fluid, Large volume stool in the rectum, start feedings, GI consult, ammonia levels were high, lactulose started, leg arterial US showed severe PAD, we will continue treatment but prognosis is poor 09/28/24: over night patient had atrial fibrillation, amiodarone was started per night team and cardiology was consulted, cardiology dc amiodarone drip, no need of further rate control since his HR 65, extensive discussion with and son, possible transfer to comfort measures but they want to speak with his other children, patient has DIC, platelets are trending down, anuric, nephrology is consulted, fio2 is lower, levophed 20, versed 0.03, tylenol levels 29, blood culture came positive for providencia alcalifaciens sensitive to meropenem, poison control will contacted due to tylenol toxicity we will continue acetylcysteine IV drip, calcium is low, calcium IV was given blood culture positive for staph coagulase negative and providencia alcalifaciens 10/01/24: during the weekend, platelets were trending down, new petechia showed up in the forehead and arms, kidney function is trending low, we still requiring levophed and vasopressin for circulatory support, due to poor prognosis and no bridge to recovery, extensive discussion was held with Michelle, and Gnosticism, son, also his grandchildren were present, it was decided to transfer the patient to comfort measures and terminal weaning tomorrow 10/02/24 at 8 am, new code status was signed 10/02/24: family is not ready for terminal weaning today, AB were restarted, patient still on pressors and sedation, new extensive discussion was held with his and tow children, the extreme poor prognosis and the multi organ failure were addressed, possible terminal weaning tomorrow Cardiology #Multiorgan failure #Septic shock due to bacteremia, UTI, possible pneumonia, multiple pressure wounds, liver failure #NSTEMI type 2 likely due to demand ischemia #New onset atrial fibrillation #New onset heart failure with diastolic dysfunction #Pulmonary hypertension started on IV fluids bicarb drip, norepinephrine, vasopressin and epinephrine hydrocortisone IV echo: LVEF 55-60%, mild LVH Right ventricle mildly dilated, normal function Interatrial septum is aneurysmal negative bubble study for shunt. Moderate pulmonary hypertension, RVSP 50-65 mmgh no need of rate or rhythm control dc amiodarone drip dc ns 75cc/h right now on levophed and vasopressin Respiratory #Acute respiratory failure due to septic shock, COPD exacerbation and pneumonia #Respiratory acidosis resolving #Pneumonia gram+/ gram - #COPD exacerbation #Bilateral pleural effusions Intubated for respiratory distress; AC/VC mode. ceftriaxone + vancomycin cultures Normal Oropharyngeal Melinda Fio2 trending down high risk of bleeding, no thoracentesis GI #Acute liver failure due to Tylenol toxicity #Shock liver #Severe malnutrition and cachexia #distal AAA #Possible GI bleeding #Severe coagulopathy #Gallbladder hyperdensity/ sludge #Hyperammonemia #Anemia normochromic, normocytic Started on acetylcysteine protocol, today levels 7 per posion control, stop acetylcysteine Vitamin K GI consult continue feedings hb trending down lactulose Metabolic #Hypoglycemia at admission #Severe lactic acidosis #Severe metabolic acidosis #Possible hypothyroidism #Hypocalcemia due to high risk of arrhythmia: no T4 supplementation for now . TSH 7 calcium gluconate given Renal #SANJAY probably due to VMN, worsening due to multiorgan failure #Complicated UTI due to enterococcus faecalis #Hematuria due to coagulopathy in UA anuria stop bicarb drip 75cc/h ns 75cc/h ceftraixone + vanc Heme/onc #Leukocytosis with bands #Anemia due to possible chronic disease #Thrombocytopenia #Severe coagulopathy #DIC hb trending down, but there is a concern of GI bleeding due to dark NG tube output MSK #Multiple wounds and ecchymosis Patient is on a severe coagulopathic state and severe denutrition: poor prognosis, wound consult: supportive care consult SS and poison control Case discussed with Dr Lechuga Time spent of critical care 114 min, 10/02/24: family is not ready for terminal weaning today, AB were restarted, patient still on pressors and sedation, new extensive discussion was held with his and tow children, the extreme poor prognosis and the multi organ failure were addressed, possible terminal weaning tomorrow Plan discussed with: Spouse, Son My Orders My Orders Orders - IRIS QUIJANO RESIDENT Procedure Category Date Status Time Morphine Sulfate PHA 10/02/24 In Process Injection 07:45 Lorazepam 2mg/Ml Inj PHA 10/02/24 In Process (Ativan Inj) 07:45 Ceftriaxone 2gm/50ml PHA 10/02/24 In Process D5w (Rocephin 2gm/5 09:15 Vancomycin Per PHA 10/02/24 In Process Pharmacy 09:15 Dietary Evaluation Review Comments: Step 1. Tube feeding Vital HP. goal rate @40ml/hr providing 960kcal, 84g protein 803 ml free water; supporting 106% energy needs and 107% protein needs. Step 2. Increase Vital HP to 45ml/hr (94g protein and 1080 kcal, 903ml free water) when pt tolerates the 40ml/hr regimen. 3, Reassess needs and medical feasiblilty of PO feeding when pt is extubated. Expected Outcomes/Goals: support protein and energy needs and maintain current wt. Date of Service: Oct 02, 2024 Billing Provider: RUCHI LECHUGA MD Common Visit Codes: 17897-RZXCMGIA CARE 30-74 MIN, 27733-ERZJFPON CARE-EACH +30MIN (x2) IRIS QUIJANO Oct 02, 2024 17:58 RUCHI LECHUGA MD Oct 03, 2024 11:44
--- NOTE | 2024-10-02 20:35 | DVHPN2 ---
Progress Note - Dictate Date Seen: Oct 02, 2024 Has the PT tested + for MRSA If YES, has PT been informed?: No Medical Necessity Reason Pt with a Central, PICC or Fol: Yes The following are medically ne: Central Line, Clark Catheter Subjective Patient is still intubated and sedated Family decided to wait on the terminal wean High gastric residuals with NG tube output about 600 and on this morning Tube feedings are on hold Hemoglobin drifted down to 8.1 Persistent leukocytosis and thrombocytopenia with platelets drifting down vital signs Vital Sign Date Time Temp Pulse Resp B/P (MAP) Pulse Ox O2 Delivery O2 Flow Rate FiO2 10/02/24 18:59 106 23 111/77 (88) 96 30 10/02/24 18:45 98.4 209.1 10/02/24 18:00 Mechanical Ventilator+ Total Intake and Output 10/01/24 10/01/24 10/02/24 15:00 23:00 07:00 Intake Total 751.941 ml 831.504 ml 681.504 ml Output Total 100 ml 50 ml Balance 751.941 ml 731.504 ml 631.504 ml medications Current Medications Medications Dose Ordered Sig/Hair Route Start Time Stop Time Status Last Admin Dose Admin Fentanyl Citrate 250 ml @ 2.5 mls/hr Q24H IV 09/25/24 13:00 09/30/24 01:35 5 MLS/HR Vasopressin 20 units/Sodium Chloride 100 ml @ 9 mls/hr Q11H7M IV 09/25/24 19:00 10/02/24 17:17 6 MLS/HR Norepinephrine Bitartrate 32 mg/ Sodium Chloride 250 ml @ 0.938 mls/ hr Q24H IV 09/26/24 14:30 09/30/24 01:36 4.688 MLS/HR Morphine Sulfate 1 mg Q1HP PRN IV 10/02/24 07:45 Lorazepam 1 mg Q1HP PRN IV 10/02/24 07:45 Ceftriaxone Sodium/Dextrose 50 ml @ 50 mls/hr DAILY IV 10/02/24 09:15 10/02/24 09:49 50 MLS/HR Vancomycin HCl 0 ml @ 0 mls/hr UD IV 10/02/24 09:15 objective General: Patient is intubated and sedated Chest: lung peraza clear to auscultation Heart: RRR, no murmur Abdomen: non-distended, soft, +BS laboratory and microbiology Laboratory Tests 10/02/24 02:47 10/01/24 02:43 Test 10/01/24 02:43 Range/Units Serum Glucose 112 H 74-106 mg/dL Problems(with codes): (1) Tylenol toxicity (2) Musculoskeletal pain (3) Metabolic encephalopathy (4) Sepsis (5) Hypoglycemia (6) Anorexia Prognosis Plan Continue ICU and supportive care Family to reconsider and possible and plan on a terminal wean tomorrow Dietary Evaluation Review Comments: Step 1. Tube feeding Vital HP. goal rate @40ml/hr providing 960kcal, 84g protein 803 ml free water; supporting 106% energy needs and 107% protein needs. Step 2. Increase Vital HP to 45ml/hr (94g protein and 1080 kcal, 903ml free water) when pt tolerates the 40ml/hr regimen. 3, Reassess needs and medical feasiblilty of PO feeding when pt is extubated. Expected Outcomes/Goals: support protein and energy needs and maintain current wt. Plan discussed with: Other (ICU Nurse ) VETO TOLEDO MD Oct 02, 2024 20:35
[2024-10-03] VITALS (114 sets, daily range): BP systolic 76–117; BP diastolic 32–71; PULSE 80–142; RESP 16–26; TEMP 97.3–99.7; O2SAT 91–100
--- NOTE | 2024-10-03 13:18 | DVHPN2 ---
Progress Note - Dictate Date Seen: Oct 03, 2024 Has the PT tested + for MRSA If YES, has PT been informed?: No Medical Necessity Reason Pt with a Central, PICC or Fol: Yes The following are medically ne: Central Line, Clark Catheter Subjective Patient is still intubated and sedated Family decided to wait on the terminal wean High gastric residuals with NG tube output about 600 and on this morning Tube feedings are on hold Hemoglobin drifted down to 8.1 Persistent leukocytosis and thrombocytopenia with platelets drifting down vital signs Vital Sign Date Time Temp Pulse Resp B/P (MAP) Pulse Ox O2 Delivery O2 Flow Rate FiO2 10/03/24 12:01 96 22 90/60 (70) 99 30 10/03/24 10:20 Mechanical Ventilator+ 10/03/24 06:30 97.9 208.2 Total Intake and Output 10/02/24 10/02/24 10/03/24 15:00 23:00 07:00 Intake Total 223.752 ml 122.640 ml 116.375 ml Output Total 140 ml 40 ml Balance 223.752 ml -17.360 ml 76.375 ml medications Current Medications Medications Dose Ordered Sig/Hair Route Start Time Stop Time Status Last Admin Dose Admin Fentanyl Citrate 250 ml @ 2.5 mls/hr Q24H IV 09/25/24 13:00 09/30/24 01:35 5 MLS/HR Vasopressin 20 units/Sodium Chloride 100 ml @ 9 mls/hr Q11H7M IV 09/25/24 19:00 10/03/24 10:27 6 MLS/HR Norepinephrine Bitartrate 32 mg/ Sodium Chloride 250 ml @ 0.938 mls/ hr Q24H IV 09/26/24 14:30 09/30/24 01:36 4.688 MLS/HR Morphine Sulfate 1 mg Q1HP PRN IV 10/02/24 07:45 Lorazepam 1 mg Q1HP PRN IV 10/02/24 07:45 Ceftriaxone Sodium/Dextrose 50 ml @ 50 mls/hr DAILY IV 10/02/24 09:15 10/03/24 10:28 50 MLS/HR Vancomycin HCl 0 ml @ 0 mls/hr UD IV 10/02/24 09:15 objective General: Patient is intubated and sedated Chest: lung peraza clear to auscultation Heart: RRR, no murmur Abdomen: non-distended, soft, +BS laboratory and microbiology Laboratory Tests 10/03/24 02:45 10/01/24 02:43 Test 10/01/24 02:43 Range/Units Serum Glucose 112 H 74-106 mg/dL Problems(with codes): (1) Tylenol toxicity (2) Musculoskeletal pain (3) Metabolic encephalopathy (4) Anorexia (5) Hypoglycemia (6) Sepsis Prognosis Plan Continue ICU and supportive care Ongoing wound care Terminal wean today when the family arrives Dietary Evaluation Review Comments: Step 1. Tube feeding Vital HP. goal rate @40ml/hr providing 960kcal, 84g protein 803 ml free water; supporting 106% energy needs and 107% protein needs. Step 2. Increase Vital HP to 45ml/hr (94g protein and 1080 kcal, 903ml free water) when pt tolerates the 40ml/hr regimen. 3, Reassess needs and medical feasiblilty of PO feeding when pt is extubated. Expected Outcomes/Goals: support protein and energy needs and maintain current wt. Plan discussed with: Other (ICU nurse Teresita) VETO TOLEDO MD Oct 03, 2024 13:18
--- NOTE | 2024-10-03 15:02 | DVHPN2 ---
Progress Note Date Seen: Oct 03, 2024 Has the PT tested + for MRSA If YES, has PT been informed?: No Medical Necessity Reason Pt with a Central, PICC or Fol: Yes The following are medically ne: Central Line, Clark Catheter Subjective Review of Systems: Deferred Objective vital signs Vital Sign Date Time Temp Pulse Resp B/P (MAP) Pulse Ox O2 Delivery O2 Flow Rate FiO2 10/03/24 13:50 96 22 108/61 (77) 100 30 10/03/24 10:20 Mechanical Ventilator+ 10/03/24 06:30 97.9 208.2 Total Intake and Output 10/02/24 10/02/24 10/03/24 15:00 23:00 07:00 Intake Total 223.752 ml 122.640 ml 116.375 ml Output Total 140 ml 40 ml Balance 223.752 ml -17.360 ml 76.375 ml medications Current Medications Medications Dose Ordered Sig/Hair Route Start Time Stop Time Status Last Admin Dose Admin Fentanyl Citrate 250 ml @ 2.5 mls/hr Q24H IV 09/25/24 13:00 09/30/24 01:35 5 MLS/HR Vasopressin 20 units/Sodium Chloride 100 ml @ 9 mls/hr Q11H7M IV 09/25/24 19:00 10/03/24 10:27 6 MLS/HR Norepinephrine Bitartrate 32 mg/ Sodium Chloride 250 ml @ 0.938 mls/ hr Q24H IV 09/26/24 14:30 09/30/24 01:36 4.688 MLS/HR Morphine Sulfate 1 mg Q1HP PRN IV 10/02/24 07:45 Lorazepam 1 mg Q1HP PRN IV 10/02/24 07:45 Ceftriaxone Sodium/Dextrose 50 ml @ 50 mls/hr DAILY IV 10/02/24 09:15 10/03/24 10:28 50 MLS/HR Vancomycin HCl 0 ml @ 0 mls/hr UD IV 10/02/24 09:15 Examination: GENERAL:Abnormal, LUNGS:Abnormal, SKIN:Abnormal laboratory and microbiology Laboratory Tests 10/03/24 02:45 10/01/24 02:43 Test 10/01/24 02:43 Range/Units Serum Glucose 112 H 74-106 mg/dL Microbiology Date/Time Source Procedure Growth Status 09/27/24 16:44 Voided Urine Urine Culture - Final Enterococcus faecalis Complete 09/27/24 13:10 Blood Blood Culture - Final NO GROWTH AFTER 5 DAYS OF INCUBATION. Complete 09/26/24 20:08 Nose MRSA Screen - Final Complete 09/25/24 12:40 Sputum Gram Stain - Final Complete 09/25/24 12:40 Sputum Respiratory Culture - Final Complete Problem List/Assessment/Plan Problem List/Assessment/Plan 79-year-old male admitted to the hospital due to unresponsiveness was admitted with a diagnosis of altered mental state in the setting of acetaminophen toxicity. Patient is currently in fulminant liver failure. Nephrology consulted for progressive worsening renal function. 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 Tube feeding Vital HP. goal rate @40ml/hr providing 960kcal, 84g protein 803 ml free water; supporting 106% energy needs and 107% protein needs. Step 2. Increase Vital HP to 45ml/hr (94g protein and 1080 kcal, 903ml free water) when pt tolerates the 40ml/hr regimen. 3, Reassess needs and medical feasiblilty of PO feeding when pt is extubated. Expected Outcomes/Goals: support protein and energy needs and maintain current wt. Critical Care Time (mins): 33 LINDY JESSICA MD Oct 03, 2024 15:02
--- NOTE | 2024-10-03 15:20 | DVHPNRES ---
Progress Note Date Seen: Oct 03, 2024 Resident Creating Document: IRIS QUIJANO RESIDENT Has the PT tested + for MRSA If YES, has PT been informed?: No Medical Necessity Reason Pt with a Central, PICC or Fol: Yes The following are medically ne: Central Line, Clark Catheter Subjective Review of Systems 79-year-old cachectic male with PMHx of left hip fracture s/p hip replacement and functional decline, found unresponsive at home by on 09/25/24. Last known normal was reportedly 0000 the same day. On EMS arrival, he was in severe respiratory distress and required intubation en route with a 7.0 ETT. Upon ED arrival, he was unresponsive and hypotensive; he was started on vasopressors and IV fluids. Initial labs were notable for profound metabolic acidosis, elevated transaminases, acute kidney injury, elevated lactate (7.8), and leukocytosis with bandemia. UA suggestive of UTI. Family reports chronic anorexia and likely Lyons overuse for chronic left hip pain. No known drug allergies. Currently requiring multiple vasopressors and mechanical ventilation in ICU. Past Medical History: Left femur fracture s/p hip replacement Bedbound for several months Possible COPD or respiratory disease (family unsure) Possible history of DM Lyons abuse for chronic pain Surgical History: Left hip replacement Medications: Lyons (home use per family) Prednisone (prior use per family, unclear duration/dose) Allergies: No known drug allergies Social History: Last alcohol intake Apr 2021, active smoker Lives at home with Denies illicit drug use (per Lyons overuse) 09/27/24: ct scan abdomen/chest: Bilateral pulmonary airspace consolidation most pronounced within the left lower lobe, Severe pulmonary emphysematous changes. Right lower lobe nodularity which is likely secondary to underlying infection /pneumonia, Small bilateral pleural effusions, Abdominal aortic aneurysm measuring 5.6 cm in diameter, There is a right common femoral vein central venous catheter with the catheter tip projecting into the region deep pelvis, likely within the right internal iliac vein branch, Gallbladder hyperdensity/ sludge, Small amount of ascites fluid, Large volume stool in the rectum, start feedings, GI consult, ammonia levels were high, lactulose started, leg arterial US showed severe PAD, we will continue treatment but prognosis is poor 09/28/24: over night patient had atrial fibrillation, amiodarone was started per night ceja and cardiology was consulted, cardiology dc amiodarone drip, no need of further rate control since his HR 65, extensive discussion with and son, possible transfer to comfort measures but they want to speak with his other children, patient has DIC, platelets are trending down, anuric, nephrology is consulted, fio2 is lower, levophed 20, versed 0.03, tylenol levels 29, blood culture came positive for providencia alcalifaciens sensitive to meropenem, poison control will contacted due to tylenol toxicity we will continue acetylcysteine IV drip, calcium is low, calcium IV was given 10/01/24: during the weekend, platelets were trending down, new petechia showed up in the forehead and arms, kidney function is trending low, we still requiring levophed and vasopressin for circulatory support, due to poor prognosis and no bridge to recovery, extensive discussion was held with Michelle, and Hinduism, son, also his grandchildren were present, it was decided to transfer the patient to comfort measures and terminal weaning tomorrow 10/02/24 at 8 am, new code status was signed 10/02/24: family is not ready for terminal weaning today, AB were restarted, patient still on pressors and sedation, new extensive discussion was held with his and tow children, the extreme poor prognosis and the multi organ failure were addressed, possible terminal weaning tomorrow 10/03/24: family was contacted in 2 occasions, son Hinduism stated that they will be here but later, Michelle stated that she was having stomach issues, so she was not able to come today, talking with therapeutic case manager, transfer to [facility] was started, since family is not ready to make a decision, case is in discussion with [facility] medical team Objective vital signs Vital Sign Date Time Temp Pulse Resp B/P (MAP) Pulse Ox O2 Delivery O2 Flow Rate FiO2 10/03/24 13:50 96 22 108/61 (77) 100 30 10/03/24 10:20 Mechanical Ventilator+ 10/03/24 06:30 97.9 208.2 Total Intake and Output 10/02/24 10/02/24 10/03/24 15:00 23:00 07:00 Intake Total 223.752 ml 122.640 ml 116.375 ml Output Total 140 ml 40 ml Balance 223.752 ml -17.360 ml 76.375 ml medications Current Medications Medications Dose Ordered Sig/Hair Route Start Time Stop Time Status Last Admin Dose Admin Fentanyl Citrate 250 ml @ 2.5 mls/hr Q24H IV 09/25/24 13:00 09/30/24 01:35 5 MLS/HR Vasopressin 20 units/Sodium Chloride 100 ml @ 9 mls/hr Q11H7M IV 09/25/24 19:00 10/03/24 10:27 6 MLS/HR Norepinephrine Bitartrate 32 mg/ Sodium Chloride 250 ml @ 0.938 mls/ hr Q24H IV 09/26/24 14:30 09/30/24 01:36 4.688 MLS/HR Morphine Sulfate 1 mg Q1HP PRN IV 10/02/24 07:45 Lorazepam 1 mg Q1HP PRN IV 10/02/24 07:45 Ceftriaxone Sodium/Dextrose 50 ml @ 50 mls/hr DAILY IV 10/02/24 09:15 10/03/24 10:28 50 MLS/HR Vancomycin HCl 0 ml @ 0 mls/hr UD IV 10/02/24 09:15 Examination General: Cachectic, severely distressed, intubated HEENT: Normal Neck: No JVD CV: Regular rate/rhythm, no murmurs Resp: Intubated, bilateral breath sounds Abdomen: Soft, non-tender, thrill in abdomen, AAA 5.6cm Extremities: No edema, no DVT signs Neuro: GCS not assessable due to sedation; no focal findings Skin: Pale, multiple pressure ulcers in the back, multiple ecchymosis, petechia showed up in the forehead and arms, patient is oozing fluid from extremities Lines/Devices: Intubated with 7.0 ETT at 23 cm Central line: Right femoral triple lumen Clark catheter in place laboratory and microbiology Laboratory Tests 10/03/24 02:45 10/01/24 02:43 Test 10/01/24 02:43 Range/Units Serum Glucose 112 H 74-106 mg/dL Microbiology Date/Time Source Procedure Growth Status 09/27/24 16:44 Voided Urine Urine Culture - Final Enterococcus faecalis Complete 09/27/24 13:10 Blood Blood Culture - Final NO GROWTH AFTER 5 DAYS OF INCUBATION. Complete 09/26/24 20:08 Nose MRSA Screen - Final Complete 09/25/24 12:40 Sputum Gram Stain - Final Complete 09/25/24 12:40 Sputum Respiratory Culture - Final Complete Problem List/Assessment/Plan Problem List/Assessment/Plan Neurology #Acute Toxic/Metabolic Encephalopathy: Likely multifactorial (shock liver, SANJAY, sepsis, tylenol overdose) #Moderate chronic microvascular ischemic changes. #Mild global cerebral volume loss fentanyl and midazolam RASS-3 ID #Bacteriemia #Pneumonia #UTI ceftriaxone and vancomycin 09/28/24: ct scan abdomen/chest: Bilateral pulmonary airspace consolidation most pronounced within the left lower lobe, Severe pulmonary emphysematous changes. Right lower lobe nodularity which is likely secondary to underlying infection /pneumonia, Small bilateral pleural effusions, Abdominal aortic aneurysm measuring 5.6 cm in diameter, There is a right common femoral vein central venous catheter with the catheter tip projecting into the region deep pelvis, likely within the right internal iliac vein branch, Gallbladder hyperdensity/ sludge, Small amount of ascites fluid, Large volume stool in the rectum, start feedings, GI consult, ammonia levels were high, lactulose started, leg arterial US showed severe PAD, we will continue treatment but prognosis is poor 09/28/24: over night patient had atrial fibrillation, amiodarone was started per night team and cardiology was consulted, cardiology dc amiodarone drip, no need of further rate control since his HR 65, extensive discussion with and son, possible transfer to comfort measures but they want to speak with his other children, patient has DIC, platelets are trending down, anuric, nephrology is consulted, fio2 is lower, levophed 20, versed 0.03, tylenol levels 29, blood culture came positive for providencia alcalifaciens sensitive to meropenem, poison control will contacted due to tylenol toxicity we will continue acetylcysteine IV drip, calcium is low, calcium IV was given blood culture positive for staph coagulase negative and providencia alcalifaciens 10/01/24: during the weekend, platelets were trending down, new petechia showed up in the forehead and arms, kidney function is trending low, we still requiring levophed and vasopressin for circulatory support, due to poor prognosis and no bridge to recovery, extensive discussion was held with Michelle, and Hinduism, son, also his grandchildren were present, it was decided to transfer the patient to comfort measures and terminal weaning tomorrow 10/02/24 at 8 am, new code status was signed 10/02/24: family is not ready for terminal weaning today, AB were restarted, patient still on pressors and sedation, new extensive discussion was held with his and tow children, the extreme poor prognosis and the multi organ failure were addressed, possible terminal weaning tomorrow 10/03/24: family was contacted in 2 occasions, son Hinduism stated that they will be here but later, Michelle stated that she was having stomach issues, so she was not able to come today, talking with therapeutic case manager, transfer to [facility] was started, since family is not ready to make a decision, case is in discussion with [facility] medical team Cardiology #Multiorgan failure #Septic shock due to bacteremia, UTI, possible pneumonia, multiple pressure wounds, liver failure #NSTEMI type 2 likely due to demand ischemia #New onset atrial fibrillation #New onset heart failure with diastolic dysfunction #Pulmonary hypertension started on IV fluids bicarb drip, norepinephrine, vasopressin and epinephrine hydrocortisone IV echo: LVEF 55-60%, mild LVH Right ventricle mildly dilated, normal function Interatrial septum is aneurysmal negative bubble study for shunt. Moderate pulmonary hypertension, RVSP 50-65 mmgh no need of rate or rhythm control dc amiodarone drip dc ns 75cc/h right now on levophed and vasopressin Respiratory #Acute respiratory failure due to septic shock, COPD exacerbation and pneumonia #Respiratory acidosis resolving #Pneumonia gram+/ gram - #COPD exacerbation #Bilateral pleural effusions Intubated for respiratory distress; AC/VC mode. ceftriaxone + vancomycin cultures Normal Oropharyngeal Melinda Fio2 trending down high risk of bleeding, no thoracentesis GI #Acute liver failure due to Tylenol toxicity #Shock liver #Severe malnutrition and cachexia #distal AAA #Possible GI bleeding #Severe coagulopathy #Gallbladder hyperdensity/ sludge #Hyperammonemia #Anemia normochromic, normocytic Started on acetylcysteine protocol, levels 7 per posion control, stop acetylcysteine Vitamin K GI consult continue feedings hb trending down lactulose Metabolic #Hypoglycemia at admission #Severe lactic acidosis #Severe metabolic acidosis #Possible hypothyroidism #Hypocalcemia due to high risk of arrhythmia: no T4 supplementation for now . TSH 7 calcium gluconate given Renal #SANJAY probably due to VMN, worsening due to multiorgan failure #Complicated UTI due to enterococcus faecalis #Hematuria due to coagulopathy in UA anuria stop bicarb drip 75cc/h ceftraixone + vanc Heme/onc #Leukocytosis with bands #Anemia due to possible chronic disease #Thrombocytopenia #Severe coagulopathy #DIC? hb trending down, but there is a concern of GI bleeding due to dark NG tube output MSK #Multiple wounds and ecchymosis Patient is on a severe coagulopathic state and severe denutrition: poor prognosis, wound consult: supportive care consult SS and poison control Case discussed with Dr Lechuga Time spent of critical care 117 min, 10/03/24: family was contacted in 2 occasions, son Hinduism stated that they will be here but later, Michelle stated that she was having stomach issues, so she was not able to come today, talking with therapeutic case manager, transfer to [facility] was started, since family is not ready to make a decision, case is in discussion with [facility] medical team Plan discussed with: Spouse, Son My Orders My Orders Orders - IRIS QUIJANO RESIDENT Procedure Category Date Status Time * Automatic Folder Seamer CONS 10/03/24 Transmitted Consult Dietary Evaluation Review Comments: Step 1. Tube feeding Vital HP. goal rate @40ml/hr providing 960kcal, 84g protein 803 ml free water; supporting 106% energy needs and 107% protein needs. Step 2. Increase Vital HP to 45ml/hr (94g protein and 1080 kcal, 903ml free water) when pt tolerates the 40ml/hr regimen. 3, Reassess needs and medical feasiblilty of PO feeding when pt is extubated. Expected Outcomes/Goals: support protein and energy needs and maintain current wt. Date of Service: Oct 03, 2024 Billing Provider: RUCHI LECHUGA MD Common Visit Codes: 76008-QGOLWLRG CARE 30-74 MIN, 79975-OVIRNDOL CARE-EACH +30MIN (X2) IRIS QIUJANO RESIDENT Oct 03, 2024 15:20 RUCHI LECHUGA MD Oct 04, 2024 12:27
--- NOTE | 2024-10-03 23:59 | DVHPN2 ---
Progress Note - Dictate Date Seen: Oct 03, 2024 Has the PT tested + for MRSA If YES, has PT been informed?: No Medical Necessity Reason Pt with a Central, PICC or Fol: Yes The following are medically ne: Central Line, Clark Catheter Subjective Patient was seen and evaluated in follow up in the ICU. Patient is intubated and sedated on ventilator. 30% FiO2. Overnight, patient was desaturating during routine turning. Patient's family has decided to hold off on terminal weaning at this time. CHILD AND FAMILY COUNSELOR 2.48. vital signs Vital Sign Date Time Temp Pulse Resp B/P (MAP) Pulse Ox O2 Delivery O2 Flow Rate FiO2 10/03/24 13:50 96 22 108/61 (77) 100 30 10/03/24 10:20 Mechanical Ventilator+ 10/03/24 06:30 97.9 208.2 Total Intake and Output 10/02/24 10/02/24 10/03/24 14:59 22:59 06:59 Intake Total 294.815 ml 120.140 ml 133.000 ml Output Total 140 ml 40 ml Balance 294.815 ml -19.860 ml 93.000 ml medications Current Medications Medications Dose Ordered Sig/Hair Route Start Time Stop Time Status Last Admin Dose Admin Fentanyl Citrate 250 ml @ 2.5 mls/hr Q24H IV 09/25/24 13:00 09/30/24 01:35 5 MLS/HR Vasopressin 20 units/Sodium Chloride 100 ml @ 9 mls/hr Q11H7M IV 09/25/24 19:00 10/03/24 10:27 6 MLS/HR Norepinephrine Bitartrate 32 mg/ Sodium Chloride 250 ml @ 0.938 mls/ hr Q24H IV 09/26/24 14:30 09/30/24 01:36 4.688 MLS/HR Morphine Sulfate 1 mg Q1HP PRN IV 10/02/24 07:45 Lorazepam 1 mg Q1HP PRN IV 10/02/24 07:45 Ceftriaxone Sodium/Dextrose 50 ml @ 50 mls/hr DAILY IV 10/02/24 09:15 10/03/24 10:28 50 MLS/HR Vancomycin HCl 0 ml @ 0 mls/hr UD IV 10/02/24 09:15 objective GENERAL: Ill appearing, intubated on ventilator. EYES: PERRL, EOMI. Anicteric. HENT: Moist mucous membranes. LUNGS: Decreased breath sounds. CARDIOVASCULAR: Regular rate and rhythm. ABDOMEN: Soft, nontender and nondistended. EXTREMITIES: No edema. SKIN: Warm, dry. laboratory and microbiology Laboratory Tests 10/03/24 02:45 10/01/24 02:43 Test 10/01/24 02:43 Range/Units Serum Glucose 112 H 74-106 mg/dL Problem List Septic shock with PNA/UTI and multiple organ failure. Acute Toxic/Metabolic Encephalopathy likely due to sepsis/Tylenol toxicity. NSTEMI type 2 likely due to above. New onset atrial fibrillation, likely due to electrolyte imbalance/sepsis. Distal AAA. DIC with acquired coagulopathy. Hypocalcemia. SANJAY probably due to VMN, worsening due to multiorgan failure. Hematuria due to coagulopathy in UA. Assessment/Plan Continued all current supportive medical care. IV antibiotics as ordered. Morphine for pain management. Vasopressors for hemodynamic support. Additional plan as per the hospital course. Critical care time of 45 minutes provided to include time spent evaluation of patient at bedside, when appropriate patient/family education for diagnosis, treatment plan, review of pertinent medical information and discussion of care with specialty providers and PCP. Mechanical ventilator parameters, treatment and adjustments have personally been reviewed by me and treatment plan by handle attacher has also been reviewed. Dietary Evaluation Review Comments: Step 1. Tube feeding Vital HP. goal rate @40ml/hr providing 960kcal, 84g protein 803 ml free water; supporting 106% energy needs and 107% protein needs. Step 2. Increase Vital HP to 45ml/hr (94g protein and 1080 kcal, 903ml free water) when pt tolerates the 40ml/hr regimen. 3, Reassess needs and medical feasiblilty of PO feeding when pt is extubated. Expected Outcomes/Goals: support protein and energy needs and maintain current wt. Plan discussed with: Other ROSE CHEEK MD Oct 03, 2024 14:13
[2024-10-04] VITALS (81 sets, daily range): BP systolic 0–141; BP diastolic 0–82; PULSE 51–126; RESP 9–25; TEMP 96.3–99.1; O2SAT 99
[2024-10-04] MEDS: PHENYLEPHRINE IV 0 ML IV ONE (02:00)
[2024-10-04] MEDS: PHENYLEPHRINE IV 250 ML IV SCH (02:00)
[2024-10-04] MEDS: DEXTROSE (50%) 50ML SYRG IV ONE ×3 (02:01→10:35)
[2024-10-04] MEDS: DEXTROSE 50% SYRINGE 50 ML IV ONE (02:04)
[2024-10-04 02:18] LABS: Base Excess -19.3 mmol/L (-2.0-3.0)
[2024-10-04] MEDS: SODIUM BICARB 8.4% 50Meq/50ml SYR Vial IV ONE ×2 (02:43→04:57)
[2024-10-04 04:38] LABS: Base Excess -15.9 mmol/L (-2.0-3.0)
[2024-10-04] MEDS: DEXTROSE 10% 1,000 ML IV ONE (06:30)
[2024-10-04 09:58] LABS: Hemoglobin 9.1 g/dL (13.5-17.5)
[2024-10-04 09:58] LABS: Base Excess -19.5 mmol/L (-2.0-3.0)
[2024-10-04 10:01] LABS: Hematocrit 28.6 % (41.0-53.0); Mean Corpuscular Hemoglobin 28.3 pg (28.0-32.0); Mean Corpuscular Volume 89.1 fL (80.0-100.0); Nucleated Red Blood Cells % 2.3 %
[2024-10-04 10:02] LABS: Anion Gap 28 (5-15); BUN/Creatinine Ratio 29.5 (10.0-20.0); Chloride 98 mmol/L (98-107); Potassium 4.8 mmol/L (3.5-5.1); Sodium 137 mmol/L (136-145)
[2024-10-04 10:03] LABS: Alanine Aminotransferase 71 U/L (7-40); Alkaline Phosphatase 327 U/L (46-116); Carbon Dioxide 11 mmol/L (20-31); Glucose 122 mg/dL (74-106)
[2024-10-04 10:04] LABS: Albumin 1.9 g/dL (3.2-4.8); Bilirubin, Total 5.4 mg/dL (0.2-1.0); Calcium 7.8 mg/dL (8.7-10.4); Total Protein 3.7 g/dL (5.7-8.2)
[2024-10-04 10:08] LABS: Blood Urea Nitrogen 85 mg/dL (9-23)
[2024-10-04 10:36] LABS: Anisocytosis Marked; Ovalocytes MODERATE
[2024-10-04] MEDS ORDERED: DEXTROSE (50%) 50ML SYRG IV PRN (10:45)
[2024-10-04] MEDS: ACCU-CHEK COMFORT CURVE STRIP VI SCH (12:15)
[2024-10-04] MEDS: PHENYLEPHRINE INJ 80 MG in SODIUM CHL 0.9% 242 ML IV SCH (12:44)
[2024-10-04] MEDS: PHENYLEPHRINE IV 250 ML IV ONE (12:52)
[2024-10-04] MEDS: MORPHINE SULFATE INJ 2 MG/ml SYRG IV PRN (16:43)
[2024-10-04] MEDS ORDERED: VANCOMYCIN 500mg/100mL 100 ML IV ONE (17:00)
--- NOTE | 2024-10-04 18:06 | DVHDS2 ---
Summary Date of Admission Sep 25, 2024 at 19:34 Date and Time of Expiration: Oct 04, 2024 17:41 Reason for Admission: #Multiorgan failure Wounds: multiple in the back, legs, arms Labs/Diagnostic Data: Laboratory Results Test 10/04/24 15:56 10/04/24 12:26 10/04/24 09:45 10/04/24 02:45 POC Glucose 107 mg/dl (70-106) Serum Glucose 47 mg/dL (74-106) Blood Gas Specimen Type Arterial Blood Gas Sample Site Left radial Blood Gas Patient Temperature 37.0 Arterial Blood Date Drawn [id number] Arterial Blood pH 7.069 (7.350-7.450) Arterial Blood Partial Pressure CO2 33.4 mmHg (35.0-48.0) Arterial Blood Partial Pressure O2 82.8 mmHg (83.0-108.0) Arterial Blood HCO3 9.4 mmol/L (21.0-28.0) Arterial Blood Oxygen Saturation 89.2 % (94.0-98.0) Arterial Blood Base Excess -19.5 mmol/L (-2.0-3.0) Arterial Blood Oxyhemoglobin 88.5 % (94.0-98.0) Arterial Blood Carboxyhemoglobin 0.3 % (0.5-1.5) Arterial Blood Methemoglobin 0.5 % (0.0-1.5) Cole Test Modified Blood Gas Total Hemoglobin 9.80 g/dL (13.5-17.5) Blood Gas Set Respiration Rate 22.0 Blood Gas Modality Vent - ac FiO2 % 30.0 Blood Gas Tidal Volume 450.0 Blood Gas PEEP or CPAP 5.0 Blood Gas Critical Value Read Back Yes Blood Gas Notified Whom Dr. nura chin Blood Gas Notified Time [id number] Blood Gas Notified By White Blood Count 17.0 10^3/uL (4.4-10.8) Red Blood Count 3.22 10^6/uL (4.5-5.90) Hemoglobin 9.1 g/dL (13.5-17.5) Hematocrit 28.6 % (41.0-53.0) Mean Corpuscular Volume 89.1 fL (80.0-100.0) Mean Corpuscular Hemoglobin 28.3 pg (28.0-32.0) Mean Corpuscular Hemoglobin Concent 31.7 g/dL (32.0-36.0) Red Cell Distribution Width 22.0 % (11.8-14.3) Platelet Count 45 10^3/uL (140-450) Mean Platelet Volume 11.2 fL (6.9-10.8) Neutrophils (%) (Auto) 93.7 % (37.0-80.0) Lymphocytes (%) (Auto) 3.8 % (10.0-50.0) Monocytes (%) (Auto) 2.4 % (0.0-12.0) Eosinophils (%) (Auto) 0.0 % (0.0-7.0) Basophils (%) (Auto) 0.1 % (0.0-2.0) Neutrophils # (Auto) 15.9 10 ^3/uL (1.6-8.6) Lymphocytes # (Auto) 0.6 10 ^3/uL (0.4-5.4) Monocytes # (Auto) 0.4 10 ^3/uL (0-1.3) Eosinophils # (Auto) 0 10 ^3/uL (0-0.8) Basophils # (Auto) 0 10 ^3/uL (0-0.2) Nucleated Red Blood Cells 2.3 % Platelet Estimate Decreased Poikilocytosis (manual) Moderate Anisocytosis (manual) Marked Ovalocytes Moderate [place] Cells Moderate Schistocytes Moderate Sodium Level 137 mmol/L (136-145) Potassium Level 4.8 mmol/L (3.5-5.1) Chloride Level 98 mmol/L (98-107) Carbon Dioxide Level 11 mmol/L (20-31) Anion Gap 28 (5-15) Blood Urea Nitrogen 85 mg/dL (9-23) Creatinine 2.88 mg/dL (0.700-1.30) Glomerular Filtration Rate Calc 22 mL/min (>90) BUN/Creatinine Ratio 29.5 (10.0-20.0) Calcium Level 7.8 mg/dL (8.7-10.4) Total Bilirubin 5.4 mg/dL (0.2-1.0) Aspartate Amino Transferase (AST) 110 U/L (13-40) Alanine Aminotransferase (ALT) 71 U/L (7-40) Alkaline Phosphatase 327 U/L (46-116) Total Protein 3.7 g/dL (5.7-8.2) Albumin 1.9 g/dL (3.2-4.8) Random Vancomycin Level 16.5 ug/mL (5-10) Test 10/01/24 02:43 09/30/24 02:25 09/29/24 08:29 09/29/24 02:50 Differential Total Cells Counted 100.0 (100) Neutrophils % (Manual) 94 (37.0-80.0) Band Neutrophils % (Manual) 1 Lymphocytes % (Manual) 3 (10.0-50.0) Monocytes % (Manual) 2 (0-12) Eosinophils % (Manual) 0 (0-7) Basophils % (Manual) 0 (0.0-2.0) Metamyelocytes % (manual) 0 Myelocytes % (Manual) 0 Promyelocytes % (Manual) 0 Blast Cells % (Manual) 0 Reactive Lymphocytes 0 Sickle Cells Few Beta-Hydroxybutyric Acid 0.060 mmol/L (< 0.4) Acetaminophen Level 7.0 UG/ML (10.0-20.0) Large Platelets Few Magnesium Level 1.7 mg/dL (1.6-2.6) Blood Gas Spontaneous Rate 22 Prothrombin Time 18.2 sec (9.3-11.8) Prothrombin Time INR 1.82 (0.9-1.15) Activated Partial Thromboplast Time 103.2 SEC (24.5-34.5) Test 09/28/24 15:06 09/28/24 11:30 09/28/24 02:46 09/27/24 16:44 Fibrinogen 186 mg/dL (177-375) Salicylates Level < 3.0 mg/dL (-30) D-Dimer, Quantitative 30.11 mg/L FEU (0.0-0.49) Ammonia 60 umol/L (11-32) Urine Color [place] (Yellow) Urine Clarity Turbid (Clear) Urine pH 5.5 (5.0-9.0) Urine Specific [place] 1.017 (1.001-1.035) Urine Protein 2+ (Negative) Urine Ketones 1+ (Negative) Urine Blood 2+ /uL (Negative) Urine Nitrite Negative (Negative) Urine Bilirubin Negative (Negative) Urine Urobilinogen Normal mg/dL (Negative) Urine Leukocyte Esterase 3+ /uL (Negative) Urine RBC 24 /hpf (0 - 3) Urine Microscopic WBC 39 /HPF (0-3) Urine Squamous Epithelial Cells Few /hpf (<5) Urine Bacteria Few /hpf (None Seen) Urine Mucus Few (None Seen) Urine Glucose 2+ mg/dL (Normal) Test 09/27/24 08:49 09/27/24 03:40 09/26/24 11:08 09/26/24 03:38 Lactic Acid Level 6.6 mmol/L (0.4-2.0) Phosphorus Level 8.5 mg/dL (2.4-5.1) Plasma/Serum Blood Alcohol < 3.0 mg/dL (<10) Hepatitis A IgM Antibody Negative Hepatitis B Surface Antigen Negative (Negative) Hepatitis B Core IgM Antibody Negative (Negative) Hepatitis C Antibody Negative (Negative) Hemoglobin A1c 5.5 % A1C (<5.7) Thyroid Stimulating Hormone (TSH) 7.16 uIU/mL (0.55-4.78) Test 09/26/24 03:37 09/25/24 22:30 09/25/24 19:45 09/25/24 15:56 Gamma Glutamyl Transpeptidase 30 U/L (<73) Creatine Kinase 226 U/L (46-171) Blood Gas Comments 1st reuben de [place] 1998 Troponin I High Sensitivity 133 ng/L (</=54) Test 09/25/24 13:04 B-Type Natriuretic Peptide 199.19 pg/mL (0-100) Other Laboratory Tests 10/04/24 02:45 Brief Hx & Hospital Course: Mr. Fady Shane, a 79-year-old male with a significant past medical history of left hip fracture s/p hip replacement, chronic [place] use for pain, presumed COPD, and possible diabetes mellitus, was found unresponsive at home by his on the morning of September 25, 2024. Per EMS documentation, he was noted to be in severe respiratory distress and was emergently intubated. Upon arrival to the ED, he was hypotensive and unresponsive, requiring multiple vasopressors and IV fluid resuscitation. Initial labs demonstrated profound high anion gap metabolic acidosis, elevated lactate (7.3), acute kidney injury, markedly elevated transaminases suggestive of acute liver injury, and leukocytosis with bandemia. Urinalysis suggested a urinary tract infection. CT imaging revealed bilateral lower lobe consolidation (L>L), right lower lobe nodularity likely infectious in nature, bilateral pleural effusions, a 5.6 cm abdominal aortic aneurysm, and gallbladder sludge. Echocardiogram showed EF 55-60% with mild LVH, diastolic dysfunction, and elevated RVSP 5065 mmHg consistent with pulmonary hypertension. Throughout the ICU course, the patient remained critically ill with progressive multiorgan failure involving: Respiratory failure requiring mechanical ventilation (initially AC/VC, later FiO2 decreased slightly, but hypoxemia persisted) Renal failure with declining urine output and rising creatinine, likely multifactorial (shock, vasopressors, UTI with Enterococcus faecalis) Liver failure presumed secondary to acetaminophen toxicity and shock liver Septic shock from polymicrobial infection (Provid[place] in blood, Enterococcus faecalis in urine, gram-positive and gram-negative organisms in sputum) Severe metabolic derangements including persistent lactic acidosis, severe hypoglycemia, hyperammonemia, coagulopathy with thrombocytopenia, and evolving DIC Neurological decline with minimal responsiveness (RASS -3) and signs of toxic- metabolic encephalopathy on CT (mild global cerebral volume loss, chronic microvascular ischemic changes) Additionally, the patient had multiple skin pressure injuries and evidence of malnutrition and cachexia. Despite aggressive supportive measures including broad-spectrum antibiotics, continuous vasopressor support (norepinephrine, vasopressin, phenylephrine), bicarbonate drip, and nutritional support via tube feeding, the patient showed no signs of clinical improvement. His prognosis remained poor with no signs of recovery. Code Status Discussions and Family Meetings: Multiple family meetings were conducted during the ICU stay. Initial discussions involved the and adult children, including son Dinesh and Michelle. On October 01 and October 02, extensive goals of care meetings were held where the poor neurologic status, multiorgan failure, lack of meaningful recovery potential, and the burden of ongoing invasive therapies were discussed. On October 04, the family was again updated on the patients continued deterioration. Platelets and hemoglobin continued to trend down, vasopressor requirements remained high, and hemodynamic instability persisted. After compassionate and thorough discussion, the family agreed that further aggressive intervention was not in line with the patients presumed wishes or best interests. The decision was made to transition to comfort-focused care and proceed with terminal extubation. Terminal Events: The patient was extubated in the presence of medical staff under terminal weaning protocol. Patient was transferred to comfort care, vasopressors and AB were stopped At 5:41 PM on October 04, 2024, Mr. Shane was pronounced . He peacefully Time of critical care : 117 minutes Family notified and bedside support offered. Case discussed with Dr. Lechuga. Consults/Reason for consult nephrology: SANJAY cardiology: afib Operations or Procedures Indication: septic shock pneumonia, ASSESS FOR INFECTION Technique: CT axial images of the chest, abdomen and pelvis are obtained without contrast. Coronal and sagittal reformats were obtained. Radiation Dose Information: CTDI volume is 8.9 mGy. Dose-length product is 631.96 mGy*cm Comparison: None FINDINGS: There is limited interpretation of the abdomen and pelvis without administration of intravenous contrast. Endotracheal tube. Trachea patent. Pulmonary emphysematous changes. Right lower lobe airspace consolidation/ nodularity. Left lower lobe more pronounced airspace consolidation. The heart is normal in size. Aortic atherosclerotic disease. Coronary artery calcification disease. Small bilateral pleural effusions. Adrenal glands, spleen, pancreas, liver unremarkable in shape. Gallbladder hyperdensity/sludge. Kidneys demonstrate no hydronephrosis. Nasogastric tube projecting towards stomach. Stomach is relatively nondistended. The small bowel loops appear normal in caliber. Rectal catheter. Large volume stool in the rectum. Moderate volume stool in the colon. Colonic diverticular disease. Small amount of ascites fluid. Severe aneurysmal dilatation of the abdominal aorta up to 5.4 x 5.6 cm Bladder decompressed by Clark catheter. Limited evaluation of the pelvis secondary to hip arthroplasty hardware. Soft tissue edema / anasarca. There is a right common femoral vein central venous catheter however the catheter tip appears to be extending into the deep pelvis /right internal iliac vein territory. Moderate to advanced lumbar degenerative disc disease. Moderate thoracic degenerative disc disease. IMPRESSION: Limited without contrast. Limited evaluation without contrast. Bilateral pulmonary airspace consolidation most pronounced within the left lower lobe. Severe pulmonary emphysematous changes. Right lower lobe nodularity which is likely secondary to underlying infection /pneumonia. Recommend short-term follow-up chest CT in 3 months to ensure resolution and exclude any type of underlying pulmonary nodule/neoplasm. Soft tissue edema /anasarca. Small bilateral pleural effusions. Abdominal aortic aneurysm measuring 5.6 cm in diameter. There is a right common femoral vein central venous catheter with the catheter tip projecting into the region deep pelvis, likely within the right internal iliac vein branch. Recommend vascular surgery consultation defer removal/repositioning. Gallbladder hyperdensity/ sludge. Small amount of ascites fluid. Large volume stool in the rectum. Other findings as described. Indication: WEAK PULSES Technique: Real- time ultrasound images of the bilateral lower extremity with grayscale, color, and spectral wave Doppler. Comparison: None Findings: Nonvisualization of the right LAUNDRY OR [employer] CLEANERS COUNTER CLERK and proximal SFA secondary to overlying dressing. Biphasic waveforms in the mid to distal right SFA, popliteal artery. Biphasic/ triphasic waveform right anterior tibial and posterior tibial arteries. Biphasic/triphasic waveform in the left LAUNDRY OR [employer] CLE[employer] COUNTER CLERK, SFA. Monophasic waveform left posterior tibial, anterior tibial arteries. Scattered atherosclerotic calcification disease. Extensive calcification at the left LAUNDRY OR [employer] CLEAN[employer] COUNTER CLERK bifurcation/proximal left profunda femoral artery. Peak systolic velocities are as follows (in cm/s): Right: Common femoral artery: Nonvisualized Profunda femoris: Nonvisualized Proximal superficial femoral: Nonvisualized Mid superficial femoral artery: 69 Distal superficial femoral artery: 98 Popliteal artery: 37 Posterior tibial artery: 89 Anterior tibial artery: 66 Dorsalis pedis artery: 27 Left: Common femoral artery: 36 Profunda femoris: 35 Proximal superficial femoral: 49 Mid superficial femoral artery: 75 Distal superficial femoral artery: 62 Popliteal artery: 103 Posterior tibial artery: 20 Anterior tibial artery: 16 Dorsalis pedis artery: 43 Impression: The right LAUNDRY OR [employer] COUNTER CLERK and proximal SFA are not adequately characterized due to overlying dressings. Monophasic waveforms and diminished velocities within the left anterior tibial, posterior tibial arteries consistent with hemodynamically significant stenosis. Decreased waveform in the right dorsalis pedis artery which could indicate hemodynamically significant stenosis. Recommend CT angiogram of the lower extremities to further evaluate. CT HEAD WITHOUT CONTRAST Indication: found down EXAM DATE: 09/25/2024 03:38 PM COMPARISON: None TECHNIQUE: CT of the head without intravenous contrast. RADIATION DOSE: CTDIvol: 1094.72 mGy, DLP: 1093.01 mGy*cm FINDINGS: There is no intracranial hemorrhage. There is no extra-axial fluid, mass, mass effect or midline shift. The ventricles are midline and normal in size. Basilar cisterns are patent. There are moderate periventricular and subcortical white matter chronic microvascular ischemic changes. Mild global cerebral volume loss. Small right parietal scalp hematoma. The paranasal sinuses and mastoids are well-pneumatized. Imaged portion of the orbits are unremarkable. IMPRESSION: No intracranial hemorrhage or mass effect. Moderate chronic microvascular ischemic changes. Mild global cerebral volume loss. Final Diagnosis/Problems List #Acute Toxic/Metabolic Encephalopathy: Likely multifactorial (shock liver, SANJAY, sepsis, tylenol overdose) #Moderate chronic microvascular ischemic changes. #Mild global cerebral volume loss #Bacteriemia #Pneumonia #UTI #Multiorgan failure #Septic shock due to bacteremia, UTI, possible pneumonia, multiple pressure wounds, liver failure #NSTEMI type 2 likely due to demand ischemia #New onset atrial fibrillation #New onset heart failure with diastolic dysfunction #Pulmonary hypertension #Acute respiratory failure due to septic shock, COPD exacerbation and pneumonia #Respiratory acidosis resolving #Pneumonia gram+/ gram - #COPD exacerbation #Bilateral pleural effusions #Acute liver failure due to Tylenol toxicity #Shock liver #Severe malnutrition and cachexia #distal AAA #Possible GI bleeding #Severe coagulopathy #Gallbladder hyperdensity/ sludge #Hyperammonemia #Anemia normochromic, normocytic #Hypoglycemia at admission #Severe lactic acidosis #Severe metabolic acidosis #Possible hypothyroidism #Hypocalcemia #SANJAY probably due to VMN, worsening due to multiorgan failure #Complicated UTI due to enterococcus faecalis #Hematuria due to coagulopathy in UA #Leukocytosis with bands #Anemia due to possible chronic disease #Thrombocytopenia #Severe coagulopathy #DIC #Multiple wounds and ecchymosis Discharge Disposition: at Hospital Date of Service: Oct 04, 2024 Billing Provider: RUCHI LECHUGA MD Common Visit Codes: 14426-HSNFHKEO CARE 30-74 MIN, 27122-LZQFNNPN CARE-EACH +30MIN (x2) IRIS QUIJANO Oct 04, 2024 18:06 RUCHI LECHUGA MD Oct 06, 2024 12:55
--- NOTE | 2024-10-05 00:16 | DVHPN2 ---
Progress Note - Dictate Date Seen: Oct 04, 2024 Has the PT tested + for MRSA If YES, has PT been informed?: No Medical Necessity Reason Pt with a Central, PICC or Fol: Yes The following are medically ne: Central Line, Clark Catheter Subjective Patient was seen and evaluated in follow up in the ICU. Patient is intubated and sedated on ventilator. 30% FiO2. WBC 17, HGB 9.1, HCT 28.6. Patient's family would like to move forward with comfort measures. vital signs Vital Sign Date Time Temp Pulse Resp B/P (MAP) Pulse Ox O2 Delivery O2 Flow Rate FiO2 10/04/24 12:52 109/64 10/04/24 12:42 100 23 30 10/04/24 12:00 Mechanical Ventilator+ 10/04/24 11:00 97.3 207.1 10/03/24 22:24 98 Total Intake and Output 10/03/24 10/03/24 10/04/24 15:00 23:00 07:00 Intake Total 182.675 ml 769.777 ml 524.504 ml Output Total 625 ml 150 ml Balance 182.675 ml 144.777 ml 374.504 ml medications Current Medications Medications Dose Ordered Sig/Hair Route Start Time Stop Time Status Last Admin Dose Admin Fentanyl Citrate 250 ml @ 2.5 mls/hr Q24H IV 09/25/24 13:00 10/03/24 15:22 5 MLS/HR Vasopressin 20 units/Sodium Chloride 100 ml @ 9 mls/hr Q11H7M IV 09/25/24 19:00 10/04/24 10:01 9 MLS/HR Norepinephrine Bitartrate 32 mg/ Sodium Chloride 250 ml @ 0.938 mls/ hr Q24H IV 09/26/24 14:30 10/04/24 11:45 14.063 MLS/HR Morphine Sulfate 1 mg Q1HP PRN IV 10/02/24 07:45 Lorazepam 1 mg Q1HP PRN IV 10/02/24 07:45 Ceftriaxone Sodium/Dextrose 50 ml @ 50 mls/hr DAILY IV 10/02/24 09:15 10/04/24 09:42 50 MLS/HR Vancomycin HCl 0 ml @ 0 mls/hr UD IV 10/02/24 09:15 Phenylephrine HCl 80 mg/Sodium Chloride 250 ml @ 7.5 mls/hr Q24H IV 10/04/24 10:00 10/04/24 12:44 7.5 MLS/HR Diagnostic Test (Pha) 1 strip Q2H 10/04/24 12:00 10/04/24 12:15 1 STRIP Dextrose 50 ml UD PRN IV 10/04/24 10:45 objective GENERAL: Ill appearing, intubated on ventilator. EYES: PERRL, EOMI. Anicteric. HENT: Moist mucous membranes. LUNGS: Decreased breath sounds. CARDIOVASCULAR: Regular rate and rhythm. ABDOMEN: Soft, nontender and nondistended. EXTREMITIES: No edema. SKIN: Warm, dry. laboratory and microbiology Laboratory Tests 10/04/24 02:45 Test 10/04/24 12:26 Range/Units Serum Glucose Pending Problem List Septic shock with PNA/UTI and multiple organ failure. Acute Toxic/Metabolic Encephalopathy likely due to sepsis/Tylenol toxicity. NSTEMI type 2 likely due to above. New onset atrial fibrillation, likely due to electrolyte imbalance/sepsis. Distal AAA. DIC with acquired coagulopathy. Hypocalcemia. SANJAY probably due to VMN, worsening due to multiorgan failure. Hematuria due to coagulopathy in UA. Assessment/Plan Continued all current supportive medical care. IV antibiotics as ordered. Morphine for pain management. Vasopressors for hemodynamic support. Additional plan as per the hospital course. Critical care time of 45 minutes provided to include time spent evaluation of patient at bedside, when appropriate patient/family education for diagnosis, treatment plan, review of pertinent medical information and discussion of care with specialty providers and PCP. Mechanical ventilator parameters, treatment and adjustments have personally been reviewed by me and treatment plan by varnishing machine operator has also been reviewed. Dietary Evaluation Review Comments: Step 1. Tube feeding Vital HP. goal rate @40ml/hr providing 960kcal, 84g protein 803 ml free water; supporting 106% energy needs and 107% protein needs. Step 2. Increase Vital HP to 45ml/hr (94g protein and 1080 kcal, 903ml free water) when pt tolerates the 40ml/hr regimen. 3, Reassess needs and medical feasiblilty of PO feeding when pt is extubated. Expected Outcomes/Goals: support protein and energy needs and maintain current wt. Plan discussed with: ROSE Ibrahim MD Oct 04, 2024 13:01
== END 2024-10-04 17:41 | DRG 870 ==
LOC: EDBD 12:20 → ER 12:20 → OVERFLOW 19:34 → ICU WEST 19:41
PROVIDERS: ADMIT Internal Medicine; ATTEND Emergency Medicine
PROC: 06HY33Z Insertion of Infusion Device into Lower Vein, Percutaneous Approach (ICD-10-PCS; principal; 2024-09-25)
PROC: 5A1955Z Respiratory Ventilation, Greater than 96 Consecutive Hours (ICD-10-PCS; 2024-09-25)
PROC: 0BH18EZ Insertion of Endotracheal Airway into Trachea, Via Natural or Artificial Opening Endoscopic (ICD-10-PCS; 2024-09-25)
DX: A41.81 Sepsis due to Enterococcus (principal); K72.00 Acute and subacute hepatic failure without coma; D65 Disseminated intravascular coagulation [defibrination syndrome]; N17.0 Acute kidney failure with tubular necrosis; R65.21 Severe sepsis with septic shock; J96.01 Acute respiratory failure with hypoxia; G92.8 Other toxic encephalopathy; J15.69 Pneumonia due to other Gram-negative bacteria; E43 Unspecified severe protein-calorie malnutrition; I21.A1 Myocardial infarction type 2; J15.9 Unspecified bacterial pneumonia; K92.2 Gastrointestinal hemorrhage, unspecified; J90 Pleural effusion, not elsewhere classified; E87.29 Other acidosis; N39.0 Urinary tract infection, site not specified; J44.1 Chronic obstructive pulmonary disease with (acute) exacerbation; J44.0 Chronic obstructive pulmonary disease with (acute) lower respiratory infection; Z68.1 Body mass index [BMI] 19.9 or less, adult; I50.30 Unspecified diastolic (congestive) heart failure; D68.4 Acquired coagulation factor deficiency; T39.1X1A Poisoning by 4-Aminophenol derivatives, accidental (unintentional), initial encounter; I27.20 Pulmonary hypertension, unspecified; D63.8 Anemia in other chronic diseases classified elsewhere; E83.51 Hypocalcemia; Z51.5 Encounter for palliative care; R58 Hemorrhage, not elsewhere classified; E03.9 Hypothyroidism, unspecified; I71.40 Abdominal aortic aneurysm, without rupture, unspecified; I48.91 Unspecified atrial fibrillation; E16.2 Hypoglycemia, unspecified; K82.8 Other specified diseases of gallbladder; G89.29 Other chronic pain; F17.200 Nicotine dependence, unspecified, uncomplicated; Z96.642 Presence of left artificial hip joint; Z74.01 Bed confinement status; Y92.89 Other specified places as the place of occurrence of the external cause
CPT/HCPCS: 36415; 36556; 36600; 70450; 71045; 71250; 74176; 76700; 80048; 80053; 80074; 80202; 80320; 80329; 81001; 82010; 82140; 82310; 82550; 82565; 82805; 82947; 82962; 82977; 83036; 83605; 83735; 83880; 84100; 84443; 84484; 85007; 85025; 85027; 85379; 85384; 85610; 85730; 87040; 87070; 87077; 87081; 87086; 87088; 87186; 87205; 93005; 93306; 93925; 94002; 94003; 96365; 96366; 99291; 99292; G0378; J0169; J0692; J2185; J2470; J2543; J3430; J3480; J7060